=== PATIENT | female | born 1945 | race Caucasian/White ===

== ENCOUNTER 2018-04-28 10:44 | Day surgery (SDC) | payer MEDICARE, OTHER, SELFPAY ==
[2018-04-07 11:43] VITALS: BMI 29.7
[2018-04-28] VITALS (12 sets, daily range): BP systolic 93–152; BP diastolic 42–90; PULSE 58–78; RESP 15–20; TEMP 35.9–36.7; O2SAT 92–99; BMI 29.1
[2018-04-28] MEDS: LACTATED RINGERS 1,000 ML 100 ML IV (11:23)
--- NOTE | 2018-04-28 12:46 | PM.PREOP ---
Pre-operative Note Interval Note Pre-op Check: Yes History & Physical Reviewed by Physician and Yes Exam Performed Changes: No H&P completed within 30 days and has changed as indicated here:: See outpatient note from 04/23/2018
[2018-04-28] MEDS: LACTATED RINGERS 1,000 ML 42 ML IV (12:58)
[2018-04-28] MEDS: CEFAZOLIN 2 GM/100 ML FROZ.PIGGY IV (13:10)
--- NOTE | 2018-04-28 13:41 | SUR.OPER ---
Lithotomy on padded OR bed, head on pillow, arms secured on padded arm boards at <90 degrees abduction. Legs secured in padded yellow fins stirrups.
[2018-04-28] MEDS: BUPIVACAINE 0.25% W/ EPI VIAL 50 ML INJ (13:54)
--- NOTE | 2018-04-28 14:30 | P.OP_ITS ---
Operative Date/Time/Diagnoses Date of procedure: 04/28/18 Time of procedure: 14:29 Pre-op diagnosis: Complete uterovaginal prolapse Post-op diagnosis: same Procedure & Clinicians Procedure: Lefort colpocleisis perineoplasty Same procedure as scheduled: Yes Indications: Complete uterovaginal prolapse Surgeon: Mikki Wolf Click Yes if Unassisted: Yes Anesthesia Type: General Operative Notes Findings: Complete uterovaginal prolapse Closure Type: primary Specimen(s): none sent Estimated Blood Loss (mL): 50 Procedure in detail: - Patient was brought to the operating room where she was in a supine position in [facility] and underwent a light general anesthetic. She was prepped and draped in the usual sterile fashion. Her bladder was drained. Antibiotics were in prior to beginning of the case. Warming was in place. Pulsatile stockings were in place. Area on anterior and posterior wall of the prolapse were marked with a marking pen and injected with 0.25% Marcaine with epinephrine. The skin was incised with a scalpel and undermined with and removed removed with Metzenbaum scissors. 2-0 Vicryl suture was used in an interrupted fashion to close anterior to posterior on the sides creating a tunnel from the cervix to the external area. 0 Vicryl suture interrupted was placed from the anterior cervical fascia to the posterior cervical fascia to invert the cervix. The vaginal incision was closed from anterior to posterior fully inverting the cervix. An area of the posterior fourchette was removed with a scalpel. Plication sutures were made with 0 Vicryl suture to decrease the vaginal opening. The skin was closed with 2 O Vicryl. Counts of instruments and sponges were correct. Patient went to recovery room in good condition. Complications: none Condition: stable Disposition: same day surgery
[2018-04-28] MEDS: IBUPROFEN 400 MG TABLET PO (15:17)
--- NOTE | 2018-04-28 15:28 | SUR.PHASEII ---
report given to Liliam Garcia RN. pt's pad changed and new one placed.
[2018-04-28] MEDS: ONDANSETRON 4 MG/2 ML INJ IV (16:05)
--- NOTE | 2018-04-28 17:25 | SUR.PHASEII ---
late entry: pt nauseated, after walking to the br to void, became pale and light headed, vss, iv fluids restarted. small amount of bleeding on pad. nausea subsided, up to br again nauseated again, ondansetron given. pt eventually drank some tea and felt better, pallor resolved alongpt left unit in stable condition. with nausea.
== END 2018-04-28 17:00 | disposition home or self-care (01) ==
PROVIDERS: PCP Family Medicine; Visit Provider Specialist
PROC: (CPT 57120; principal; 2018-04-28 11:45)
DX: N81.3 Complete uterovaginal prolapse (principal); E11.9 Type 2 diabetes mellitus without complications; I47.1 Supraventricular tachycardia; E03.9 Hypothyroidism, unspecified; K21.9 Gastro-esophageal reflux disease without esophagitis; Z79.84 Long term (current) use of oral hypoglycemic drugs; Z79.82 Long term (current) use of aspirin
CPT/HCPCS: 57120; J0690; J2405; J2704; J3010

== ENCOUNTER 2018-06-30 19:29 | Emergency (ER) | payer MEDICARE, OTHER, SELFPAY ==
[2018-06-30 19:39] VITALS: BP 121/65; PULSE 135; RESP 13; TEMP 36.9; O2SAT 99; BMI 29.0
--- NOTE | 2018-06-30 19:41 | ED.ARRPALP ---
HPI - Arrhythmia/Palpitations General Chief Complaint: Arrhythmia/Palpitations Stated Complaint: states rapid heart rate patient states SVT Time Seen by Provider: 06/30/18 19:41 Source: patient and family Mode of arrival: ambulatory Limitations: no limitations History of Present Illness HPI narrative: 72-year-old nonsmoking female presents with her and a chief complaint of palpitations and fatigue over the course of the day. She has a history of SVT states this feels quite similar. She is followed by Cardiology at [facility] and has a prescription for metoprolol which she has taken 3 times today. She denies any chest pain but is fatigued and mildly short of breath. She denies any recent illness involving fever or chills. She has been under increased stress at home due to preparations for Thanksgiving but denies any lack of sleep, increased alcohol, nicotine or caffeine. Patient is hypothyroid but denies any change in her dosing regimen. Her symptoms have been persisting over the course of the day MD complaint: rapid heart beat and heart racing Onset (ago): hour(s) Duration: constant Severity: moderate Context: occurred during rest Arrhythmia history: SVT Associated symptoms: shortness of breath Related Data Home Medications Medication Instructions Recorded Confirmed metformin [Glucophage XR] 500 mg PO BID #0 04/18/13 05/12/18 aspirin 81 mg tablet,delayed 81 mg PO DAILY 03/17/18 05/12/18 release meclizine 25 mg tablet 25 mg PO DAILY PRN 03/17/18 05/12/18 metoprolol tartrate 25 mg tablet 25 mg PO BID 03/17/18 05/12/18 omeprazole 40 mg capsule,delayed 40 mg PO DAILY 03/17/18 05/12/18 release phytonadione (vitamin K1) 100 mcg 100 mcg PO DAILY 03/17/18 05/12/18 tablet levothyroxine 25 mcg tablet 50 mcg PO #0 tab 04/23/18 05/12/18 Allergies Allergy/AdvReac Type Severity Reaction Status Date / Time sodium Allergy Verified 06/30/18 19:39 Review of Systems Review of Systems All systems reviewed & are unremarkable except as noted in HPI and below Constitutional Denies chills, Denies fever(s), Denies lethargy and Denies weakness Eyes Denies change in vision, Denies eye discharge, Denies irritation and Denies loss of vision ENT Ears, Nose, Mouth, and Throat: Denies change in voice, Denies neck pain and Denies sore throat Cardiovascular Denies chest pain, Reports irregular heart rhythm, Reports lightheadedness, Reports palpitations, Reports dyspnea, Reports dyspnea on exertion and Denies orthopnea Respiratory Denies cough, Reports dyspnea, Reports dyspnea on exertion and Denies wheezing Gastrointestinal Gastrointestinal: Denies abdominal pain, Denies change in bowel habits, Denies diarrhea, Denies nausea and Denies vomiting Genitourinary Denies hematuria, Denies flank pain, Denies urinary incontinence and Denies urinary urgency Musculoskeletal Denies neck pain Integumentary/Breasts Denies pruritus, Denies erythema, Denies rash and Denies wounds Neurologic Denies confusion, Denies loss of vision and Denies weakness Psychiatric Denies anxiety, Denies confusion, Denies depression, Denies homicidal ideation and Denies suicidal ideation Endocrine Reports palpitations Hematologic/Lymphatic Denies easy bruising Allergic/Immunologic Denies wheezing PFSH Medical History Complete uterovaginal prolapse (Acute) GERD (gastroesophageal reflux disease) (Acute) History of compression fracture of spine (Acute) History of ectopic (Acute) Menieres disease (Acute) Osteopenia (Acute) Postmenopausal (Acute) Diabetes (Chronic) Hypothyroidism (acquired) (Chronic) Surgical History History of appendectomy (Acute) History of carpal tunnel repair (Acute) History of kyphoplasty (Acute) History of surgery (Acute) Social History household members: spouse Smoking Status: Never smoker Exam Initial Vital Signs Initial Vital Signs: Vital Signs Temperature 98.4 F 06/30/18 19:39 Pulse Rate 135 H 06/30/18 19:39 Respiratory Rate 13 06/30/18 19:39 Blood Pressure 121/65 06/30/18 19:39 Pulse Oximetry 99 06/30/18 19:39 Procedures [facility] Procedure Name of Procedure: Modified Valsalva Technique/Description of procedure performed: Patient blows on 10mL syringe with sufficient force to move plunger (approx. 40mmHg) x 15 seconds and then lowered into supine position with immediate passive leg raise for another 15 seconds Patient tolerated procedure: Well Complications: none Additional Comments: unsccessful Course Orders Ordered: ED Orders 06/30/18 19:30 Arterial Blood Gas Stat 06/30/18 19:40 Basic Metabolic Panel Stat Complete Blood Count AUTO DIFF Stat Magnesium Stat Thyroid Stimulating Hormone Stat Troponin & CK Cardiac Panel Stat 06/30/18 19:45 XR chest 1V Stat Sodium Chloride (Normal Saline 0.9%) 1,000 mls @ 150 mls/hr IV CONT JASON Last Admin: 06/30/18 20:12 Dose: 150 mls/hr Discontinued Medications Diltiazem HCl (Cardizem) 10 mg IV NOW ONE Stop: 06/30/18 20:08 Last Admin: 06/30/18 20:12 Dose: 10 mg Reevaluation(s) Reevaluation #1: Patient did not have successful termination of SVT after use of modified Valsalva maneuver. Cardizem 10 mg IV push was ordered but patient converted after 7mg into NSR in 60s. patient completely asymptomatic for the duration of her visit afterwards Vital Signs - 8 hr 06/30/18 19:39 06/30/18 20:12 06/30/18 20:22 Temperature 98.4 F Pulse Rate 135 H 133 H 63 Respiratory Rate 13 15 Blood Pressure 121/65 117/89 Blood Pressure [Left Arm] 104/50 L Pulse Oximetry 99 96 06/30/18 20:35 Temperature Pulse Rate 68 Respiratory Rate 16 Blood Pressure Blood Pressure [Left Arm] 129/61 Pulse Oximetry 97 MDM - Arrhythmia/Palpitations Lab Data Result diagrams: 06/30/18 19:40 06/30/18 19:40 Lab Results 06/30/18 06/30/18 06/30/18 Range/Units 19:30 19:40 19:40 WBC 8.7 (4.5-11.0) X10^3/uL RBC 5.30 H (4.0-5.2) X10^6/uL Hgb 15.1 (12.0-16.0) g/dL Hct 45.9 (36-46) % MCV 86.6 (80-100) fL MCH 28.4 (26-34) PG MCHC 32.8 (30-36) % RDW 14.2 (11.6-14.8) % Plt Count 386 (150-400) X10^3/uL Neut % (Auto) 56.4 (50-75) % Lymph % (Auto) 32.5 (25-40) % [place] % (Auto) 8.4 (3-14) % Eos % (Auto) 2.4 (2-4) % Baso % (Auto) 0.3 (0-2) % Neut # (Auto) 4900 (4626-7500) /uL ABG pH (7.35-7.45) ABG pCO2 (35-45) mmHg ABG pO2 (80-105) mmHg ABG HCO3 (23-27) mmol/L ABG Total CO2 (23-27) mmol/L ABG O2 Saturation (95-100) % ABG Base Excess (-2-3) mmol/L FiO2 Sodium 141 (137-145) mmol/L Potassium 3.8 (3.4-5.1) mmol/L Chloride 99 (98-107) mmol/L Carbon Dioxide 27 (22-32) mmol/L BUN 24 H (7-17) mg/dL Creatinine 0.90 (0.52-1.04) mg/dL Estimated GFR > 60.0 (>60) mL/min BUN/Creatinine Ratio 26.7 H (6-22) Glucose 189 H (80-110) mg/dL Calcium 10.0 (8.4-10.2) mg/dL Magnesium 1.9 (1.6-2.3) mg/dL Total Creatine Kinase 45 (30-135) U/L CK-MB (CK-2) TNP CK-MB (CK-2) Rel Index TNP Troponin I < 0.012 (0.01-0.034) ng/mL Discharge Plan Departure Patient Disposition: Home Clinical Impression: Supraventricular tachycardia Discharge Date/Time: 06/30/18 20:44 Instructions: Paroxysmal Supraventricular Tachycardia Activity Restrictions/Additional Instructions: *You have been diagnosed with [ acute SVT versus other nonspecific sinus tachycardia ] *What to do: *Take medications as directed *Take steps to avoid stress as it likely played a role in tonight's visit *Follow up with your primary care provider in 2-3 days, call for an appointment. Let them know you were seen in the Emergency Department and that we ask that you be seen in follow up *Return to ER if you should have any new, worsening or concerning symptoms Prescriptions: No Action metformin [Glucophage XR] 500 MG tablet extended release 24 hr 500 mg PO BID Qty: 0 RF: 0 levothyroxine [Synthroid] 25 mcg tablet 50 mcg PO Qty: 0 RF: 0 metoprolol tartrate 25 mg tablet 25 mg PO BID RF: 0 omeprazole 40 mg capsule,delayed release(DR/EC) 40 mg PO DAILY RF: 0 meclizine 25 mg tablet 25 mg PO DAILY PRN (Reason: Unknown) RF: 0 aspirin [Aspir-81] 81 mg tablet,delayed release (DR/EC) 81 mg PO DAILY RF: 0 phytonadione (vitamin K1) 100 mcg tablet 100 mcg PO DAILY RF: 0 Referrals: Arun Tavares MD [Primary Care Provider] -
--- NOTE | 2018-06-30 19:45 | DI.RAD.S_ITS ---
PROCEDURE: XR CHEST 1V INDICATIONS: palpitations, arrhythmia TECHNIQUE: One view of the chest was acquired. COMPARISON: [facility], , CHEST 1 VIEW, 06/11/2014, 9:08. FINDINGS: Surgical changes and devices: Bone cement injection at multiple levels in the thoracolumbar spine. Lungs and pleura: No pleural effusions or pneumothorax. Lungs are clear. Mediastinum: Mediastinal contours appear normal. Heart size is normal. Bones and chest wall: No suspicious bony lesions. Overlying soft tissues appear unremarkable. IMPRESSION: No acute process. Dictated by: Alf Garcia M.D. on 06/30/2018 at 20:20 Approved by: Alf Garcia M.D. on 06/30/2018 at 20:20
[2018-06-30 19:59] LABS: Add Manual Diff / Slide Review NO; Basophils Percent Auto 0.3 % (0-2); Eosinophils Percent Auto 2.4 % (2-4); Hematocrit 45.9 % (36-46); Hemoglobin 15.1 g/dL (12.0-16.0); Lymphocytes Percent Auto 32.5 % (25-40); Mean Corpuscular HGB Conc 32.8 % (30-36); Mean Corpuscular Hemoglobin 28.4 PG (26-34); Mean Corpuscular Volume 86.6 fL (80-100); Monocytes Percent Auto 8.4 % (3-14); Neutrophils Absolute Auto 4900 /uL (3000-5900); Neutrophils Percent Auto 56.4 % (50-75); Platelet Count 386 X10^3/uL (150-400); Red Cell Distribution Width 14.2 % (11.6-14.8); White Blood Cell Count 8.7 X10^3/uL (4.5-11.0)
[2018-06-30 20:07] LABS: BUN Creatinine Ratio 26.7 (6-22); Blood Urea Nitrogen 24 mg/dL (7-17); Carbon Dioxide 27 mmol/L (22-32); Chloride 99 mmol/L (98-107); Creatine Kinase 45 U/L (30-135); Estimated Glomerular Filt Rate > 60.0 mL/min (>60); Glucose 189 mg/dL (80-110); HEMOLYSIS < 15 (0-50); Magnesium 1.9 mg/dL (1.6-2.3); Potassium 3.8 mmol/L (3.4-5.1); Sodium 141 mmol/L (137-145)
[2018-06-30 20:12] VITALS: BP 117/89; PULSE 133
[2018-06-30] MEDS: SODIUM CHLORIDE 0.9% 1,000 ML 150 ML IV (20:12)
[2018-06-30] MEDS: dilTIAZem 5 MG/ML SDV 10 MG IV (20:12)
[2018-06-30 20:19] LABS: Troponin I < 0.012 ng/mL (0.01-0.034)
[2018-06-30 20:22] VITALS: BP 104/50; PULSE 63; RESP 15; O2SAT 96
[2018-06-30 20:35] VITALS: BP 129/61; PULSE 68; RESP 16; O2SAT 97
[2018-06-30 20:44] LABS: Thyroid Stimulating Hormone 1.86 uIU/mL (0.47-4.68)
== END 2018-06-30 20:44 | disposition home or self-care (01) ==
PROVIDERS: Emergency Provider Emergency Medicine; PCP Family Medicine
DX: I47.1 Supraventricular tachycardia (principal)
CPT/HCPCS: 36591; 71045; 80048; 82550; 82805; 83735; 84443; 84484; 85025; 93005; 93041; 96361; 96374; 99283; 99285

== ENCOUNTER 2018-10-21 19:55 | Emergency (ER) | payer MEDICARE, OTHER, SELFPAY ==
[2018-10-21 20:09] VITALS: BP 148/101; PULSE 130; RESP 19; TEMP 37; O2SAT 100; BMI 28.6
--- NOTE | 2018-10-21 20:11 | DI.RAD.S_ITS ---
PROCEDURE: XR CHEST 1V INDICATIONS: chest pain TECHNIQUE: One view of the chest was acquired. COMPARISON: [facility], CR, XR CHEST 1V, 06/30/2018, 19:57. FINDINGS: Surgical changes and devices: Prior T12 vertebroplasty. Lungs and pleura: Lungs are clear. No pleural effusions or pneumothorax. Mediastinum: Mediastinal contours appear normal. Heart size is mildly enlarged. Bones and chest wall: No suspicious bony lesions. Overlying soft tissues appear unremarkable. IMPRESSION: No acute cardiopulmonary disease process. Dictated by: Dayami Villar MD, PhD on 10/21/2018 at 20:43 Approved by: Dayami Villar MD, PhD on 10/21/2018 at 20:45
[2018-10-21 20:17] LABS: Add Manual Diff / Slide Review NO; Basophils Absolute Auto 100 /uL (0-100); Eosinophils Absolute Auto 200 /uL (0-450); Eosinophils Percent Auto 2.8 % (2-4); Hematocrit 45.7 % (36-46); Hemoglobin 14.9 g/dL (12.0-16.0); Lymphocytes Absolute Auto 3300 /uL (1100-4500); Lymphocytes Percent Auto 40.4 % (25-40); Mean Corpuscular HGB Conc 32.5 % (30-36); Mean Corpuscular Hemoglobin 27.9 PG (26-34); Mean Corpuscular Volume 85.7 fL (80-100); Monocytes Absolute Auto 600 /uL (0-900); Monocytes Percent Auto 7.1 % (3-14); Neutrophils Absolute Auto 4000 /uL (1500-7000); Neutrophils Percent Auto 48.7 % (50-75); Platelet Count 372 X10^3/uL (150-400); Red Blood Cell Count 5.34 X10^6/uL (4.0-5.2); Red Cell Distribution Width 14.8 % (11.6-14.8); White Blood Cell Count 8.2 X10^3/uL (4.5-11.0)
[2018-10-21 20:25] LABS: Prothrombin Time 11.7 SECONDS (10.1-12.7)
[2018-10-21 20:27] LABS: PTT Partial Thromboplastin Tim 25 SECONDS (26.4-36.2)
[2018-10-21 20:30] VITALS: BP 132/75; PULSE 132; RESP 19; O2SAT 94
[2018-10-21 20:30] LABS: Alanine Aminotransferase 30 IU/L (9-52); Albumin 4.7 g/dL (3.5-5.0); Albumin Globulin Ratio 1.1 (1.0-2.8); Alkaline Phosphatase 110 U/L (38-126); Aspartate Aminotransferase 36 IU/L (14-36); BUN Creatinine Ratio 26.7 (6-22); Bilirubin Total 0.4 mg/dL (0.2-1.3); Blood Urea Nitrogen 24 mg/dL (7-17); Calcium 8.9 mg/dL (8.4-10.2); Carbon Dioxide 27 mmol/L (22-32); Chloride 96 mmol/L (98-107); Creatine Kinase 48 U/L (30-135); Estimated Glomerular Filt Rate > 60.0 mL/min (>60); Globulin 4.2 g/dL (1.7-4.1); Glucose 197 mg/dL (80-110); HEMOLYSIS < 15 (0-50); Lipase 319 U/L (23-300); Potassium 3.9 mmol/L (3.4-5.1); Sodium 141 mmol/L (137-145); Total Protein 8.9 g/dL (6.3-8.2)
--- NOTE | 2018-10-21 20:31 | ED.ARRPALP ---
HPI - Arrhythmia/Palpitations General Chief Complaint: Arrhythmia/Palpitations Stated Complaint: RAPID HEARTRATE Time Seen by Provider: 10/21/18 20:03 Source: patient and family Mode of arrival: ambulatory Limitations: no limitations History of Present Illness HPI narrative: Patient complains of rapid heart rate that started around noon today continued since. Patient states her heart rate has remained in the 120s to 130s all day long, and has not responded to a total of 62-,1/2 mg of metoprolol taken over the course of the day. Patient states that she has a longstanding history of SVT, and that this feels same, although at other times, her heart rate has quite a bit faster than is today. Patient states she has otherwise been feeling well and has not had a recent fever, vomiting, diarrhea, or other cause of volume loss. The patient states that she has not had any medication changes otherwise. She has a history of well-controlled diabetes, and also takes Synthroid. Patient denies chest pain or shortness of breath. No dizziness or lightheadedness. No fainting. Patient states she has no other symptoms at this time. She is mainly concerned that she does not want to go to bed without her heart rate coming down. Related Data Home Medications Medication Instructions Recorded Confirmed metformin [Glucophage XR] 500 mg PO BID #0 04/18/13 05/12/18 aspirin 81 mg tablet,delayed 81 mg PO DAILY 03/17/18 05/12/18 release meclizine 25 mg tablet 25 mg PO DAILY PRN 03/17/18 05/12/18 metoprolol tartrate 25 mg tablet 25 mg PO BID 03/17/18 05/12/18 omeprazole 40 mg capsule,delayed 40 mg PO DAILY 03/17/18 05/12/18 release phytonadione (vitamin K1) 100 mcg 100 mcg PO DAILY 03/17/18 05/12/18 tablet levothyroxine 25 mcg tablet 50 mcg PO #0 tab 04/23/18 05/12/18 cholecalciferol (vitamin D3) 1,000 1,000 unit PO DAILY 08/04/18 08/04/18 unit capsule Previous Rx's Medication Instructions Recorded diltiazem HCl [Cardizem] 30 mg PO DAILY #7 tab 10/21/18 Allergies Allergy/AdvReac Type Severity Reaction Status Date / Time sodium Allergy Verified 10/21/18 20:08 Review of Systems Constitutional Denies chills, Denies fever(s), Denies lethargy and Denies weakness Eyes Denies change in vision, Denies eye discharge, Denies irritation and Denies loss of vision ENT Ears, Nose, Mouth, and Throat: Denies change in voice, Denies neck pain and Denies sore throat Cardiovascular Denies chest pain, Denies irregular heart rhythm, Denies lightheadedness, Reports palpitations, Denies dyspnea, Denies dyspnea on exertion and Denies orthopnea Respiratory Denies cough, Denies dyspnea, Denies dyspnea on exertion and Denies wheezing Gastrointestinal Gastrointestinal: Denies abdominal pain, Denies change in bowel habits, Denies diarrhea, Denies nausea and Denies vomiting Genitourinary Denies hematuria, Denies flank pain, Denies urinary incontinence and Denies urinary urgency Musculoskeletal Denies neck pain Integumentary/Breasts Denies pruritus, Denies erythema, Denies rash and Denies wounds Neurologic Denies confusion, Denies loss of vision and Denies weakness Psychiatric Denies anxiety, Denies confusion, Denies depression, Denies homicidal ideation and Denies suicidal ideation Endocrine Reports palpitations Hematologic/Lymphatic Denies easy bruising Allergic/Immunologic Denies wheezing FORMERLY [facility], 1928–1983 Medical History Complete uterovaginal prolapse (Acute) GERD (gastroesophageal reflux disease) (Acute) History of compression fracture of spine (Acute) History of ectopic (Acute) Menieres disease (Acute) Osteopenia (Acute) Postmenopausal (Acute) Diabetes (Chronic) Hypothyroidism (acquired) (Chronic) Surgical History History of appendectomy (Acute) History of carpal tunnel repair (Acute) History of kyphoplasty (Acute) History of surgery (Acute) Social History household members: spouse Smoking Status: Never smoker Social History household members: spouse Smoking Status: Never smoker Exam Initial Vital Signs Initial Vital Signs: Vital Signs Temperature 98.6 F 10/21/18 20:09 Pulse Rate 130 H 10/21/18 20:09 Respiratory Rate 19 10/21/18 20:09 Blood Pressure 148/101 H 10/21/18 20:09 Pulse Oximetry 100 10/21/18 20:09 Const General: cooperative, well developed and No acute distress Nutritional Appearance: well nourished Orientation: alert, awake, oriented x3 and not confused Other: The patient is in no distress and is well appearing. [facility] Head: normocephalic and atraumatic Ears: external ears normal Nose: external nose normal and No nasal discharge Face and sinus: face symmetric and No dry mucous membranes Mouth: oral mucosae normal and moist mucous membranes Teeth and gingiva: dentition normal Eyes General: appearance normal, both eyes and all related structures Eyelids: eyelids normal Conjunctivae: conjunctivae normal Sclera: sclerae normal Pupils: PERRL EOM: EOM intact bilaterally Neck Neck: normal visual inspection, trachea midline, No lymphadenopathy, No midline deformity and No JVD Lymphatic: No lymphedema Chest Chest: normal inspection of the chest Resp Effort & Inspection: normal respiratory effort, able to speak in complete sentences, no respiratory distress and no use of accessory muscles Auscultation: clear to auscultation bilaterally, no rales, no rhonchi and no wheezes Cardio Rate: tachycardic (Patient has a tachycardic yet regular rhythm at around 130 beats per min.) Heart Sounds: no click, no gallops, no murmurs and no rubs Pulses: normal peripheral pulses GI Inspection: non-distended Palpation: soft, no hepatosplenomegaly, No guarding, No pulsatile mass and No tender Auscultation: normal bowel sounds Back/Spine/Pelvis Back: No CVA tenderness Cervical Spine: cervical ROM normal and No pain with cervical ROM Thoracic/Lumbar Spine: thoracic and lumbar spine normal to inspection Skin General: no rashes or lesions noted, No jaundice and No petechiae Neuro General: alert, oriented x3, gait normal and no focal motor deficits Speech: speech normal Extrem General: full ROM, no clubbing, cyanosis or edema, no pedal edema and no calf tenderness Psych Appearance: well kempt Mental Status: mental status grossly normal Attitude: cooperative Thought Content: normal and suicidality Judgment: judgment good Course Course Narrative: I did review the patient's records, after looking at her EKG which showed sinus tachycardia, and found that the last time the patient came in for this, her heart rate was roughly the same, and she responded well to a low dose of Cardizem. I did go ahead and give the patient a low dose of Cardizem IV in the emergency department today. Labs were also sent, including CMP, CBC, and cardiac panel. Shortly after the Cardizem dose, patient's heart rate slowed to a normal sinus rhythm in the 60s. she felt good, was otherwise stable, and labs were unremarkable. I felt she was stable for discharge home. We discussed home management of her condition, as well as the usual indications for return. Orders Ordered: Discontinued Medications Diltiazem HCl (Cardizem) 10 mg IV NOW ONE Stop: 10/21/18 20:32 Last Admin: 10/21/18 20:36 Dose: 10 mg Sodium Chloride (Normal Saline 0.9%) 1,000 mls @ 1,000 mls/hr IV BOLUS ONE Stop: 10/21/18 21:28 Last Infusion: 10/21/18 21:00 Dose: 0 mls/hr Admin: 10/21/18 20:36 Dose: 1,000 mls/hr Vital Signs - 8 hr 10/21/18 20:09 Temperature 98.6 F Pulse Rate 130 H Respiratory Rate 19 Blood Pressure 148/101 H Pulse Oximetry 100 MDM - Arrhythmia/Palpitations Medical Records Attestation: I reviewed the patient's medical records. Lab Data Attestation: I reviewed the patient's lab results. Result diagrams: 10/21/18 20:04 10/21/18 20:04 Lab Results 10/21/18 10/21/18 10/21/18 Range/Units 20:04 20:04 20:04 WBC 8.2 (4.5-11.0) X10^3/uL RBC 5.34 H (4.0-5.2) X10^6/uL Hgb 14.9 (12.0-16.0) g/dL Hct 45.7 (36-46) % MCV 85.7 (80-100) fL MCH 27.9 (26-34) PG MCHC 32.5 (30-36) % RDW 14.8 (11.6-14.8) % Plt Count 372 (150-400) X10^3/uL Neut % (Auto) 48.7 L (50-75) % Lymph % (Auto) 40.4 H (25-40) % [place] % (Auto) 7.1 (3-14) % Eos % (Auto) 2.8 (2-4) % Baso % (Auto) 1.0 (0-2) % Neut # (Auto) 4000 (9712-3261) /uL Lymph # (Auto) 3300 (6375-4395) /uL [place] # (Auto) 600 (0-900) /uL Eos # (Auto) 200 (0-450) /uL Baso # (Auto) 100 (0-100) /uL PT 11.7 (10.1-12.7) SECONDS INR 1.0 (0.9-1.3) APTT 25 L (26.4-36.2) SECONDS Sodium 141 (137-145) mmol/L Potassium 3.9 (3.4-5.1) mmol/L Chloride 96 L (98-107) mmol/L Carbon Dioxide 27 (22-32) mmol/L BUN 24 H (7-17) mg/dL Creatinine 0.90 (0.52-1.04) mg/dL Estimated GFR > 60.0 (>60) mL/min BUN/Creatinine Ratio 26.7 H (6-22) Glucose 197 H (80-110) mg/dL Calcium 8.9 (8.4-10.2) mg/dL Total Bilirubin 0.4 (0.2-1.3) mg/dL AST 36 (14-36) IU/L ALT 30 (9-52) IU/L Alkaline Phosphatase 110 (38-126) U/L Total Creatine Kinase 48 (30-135) U/L CK-MB (CK-2) TNP CK-MB (CK-2) Rel Index TNP Troponin I < 0.012 (0.01-0.034) ng/mL Total Protein 8.9 H (6.3-8.2) g/dL Albumin 4.7 (3.5-5.0) g/dL Globulin 4.2 H (1.7-4.1) g/dL Albumin/Globulin Ratio 1.1 (1.0-2.8) Lipase 319 H (23-300) U/L ECG Data Attestation: I personally reviewed and interpreted this ECG as follows: ( See below) Interpretation: 12 lead EKG performed October 21, 2018 at 8:06 p.m.: Regular ventricular rhythm with a rate of 126 beats per minute OH interval 192 milliseconds QRS duration 120 milliseconds QTC interval [address] T wave changes no ectopy left axis deviation and summary: Sinus tachycardia; moderate intraventricular conduction delay; marked left axis deviation; minimal ST depression; abnormal EKG as interpreted by ED MD. Discharge Plan Departure Patient Disposition: Home Clinical Impression: Sinus tachycardia Discharge Date/Time: 10/21/18 21:31 Interventions: ED Discharge Assessment Last Done: 10/21/18 21:30 Instructions: DI for Arrhythmias Activity Restrictions/Additional Instructions: Your labs look good. Your heart rate has responded well to diltiazem, a calcium channel santana, tonight. You will be given a small prescription for this, to take only if your heart rate is high and fails to respond to metoprolol, but should talk to your doctor about whether this is a good long-term plan to have as a backup to your metoprolol, should your metoprolol fail to yield results as it did tonight. Prescriptions: New diltiazem HCl [Cardizem] 30 mg tablet 30 mg PO DAILY Qty: 7 RF: 0 No Action metformin [Glucophage XR] 500 MG tablet extended release 24 hr 500 mg PO BID Qty: 0 RF: 0 levothyroxine [Synthroid] 25 mcg tablet 50 mcg PO Qty: 0 RF: 0 metoprolol tartrate 25 mg tablet 25 mg PO BID RF: 0 omeprazole 40 mg capsule,delayed release(DR/EC) 40 mg PO DAILY RF: 0 meclizine 25 mg tablet 25 mg PO DAILY PRN (Reason: Unknown) RF: 0 aspirin [Aspir-81] 81 mg tablet,delayed release (DR/EC) 81 mg PO DAILY RF: 0 phytonadione (vitamin K1) 100 mcg tablet 100 mcg PO DAILY RF: 0 cholecalciferol (vitamin D3) 1,000 unit capsule 1,000 unit PO DAILY RF: 0 Referrals: Arun Tavares MD [Primary Care Provider] -
[2018-10-21] MEDS: SODIUM CHLORIDE 0.9% 1,000 ML 1000 ML IV (20:36)
[2018-10-21] MEDS: dilTIAZem 5 MG/ML SDV 10 MG IV (20:36)
[2018-10-21 20:42] LABS: Troponin I < 0.012 ng/mL (0.01-0.034)
[2018-10-21 20:45] VITALS: BP 112/67; PULSE 59; RESP 20; O2SAT 95
== END 2018-10-21 21:31 | disposition home or self-care (01) ==
PROVIDERS: Emergency Provider Emergency Medicine; Family Provider Family Medicine; PCP Family Medicine
DX: R00.0 Tachycardia, unspecified (principal)
CPT/HCPCS: 36591; 71045; 80053; 82550; 83690; 84484; 85025; 85610; 85730; 93005; 96374; 99283; 99285

== ENCOUNTER → 2018-11-03 13:35 | Outpatient (CLI) | payer MEDICARE, OTHER, SELFPAY | PROVIDERS: Family Provider Family Medicine; PCP Family Medicine; Visit Provider Family Medicine | DX: M81.0 Age-related osteoporosis without current pathological fracture (principal); Z78.0 Asymptomatic menopausal state; E11.9 Type 2 diabetes mellitus without complications; E07.9 Disorder of thyroid, unspecified | CPT/HCPCS: 77080; 77081 ==

== ENCOUNTER → 2018-11-23 10:56 | Outpatient (CLI) | payer MEDICARE, OTHER, SELFPAY ==
--- NOTE | 2018-11-23 | DI.RAD.S_ITS ---
PROCEDURE: XR HIP W PEL IF DONE LT 2V INDICATIONS: LEFT HIP AND LEFT KNEE PAIN TECHNIQUE: AP pelvis with lateral view(s) of the left hip. COMPARISON: None. FINDINGS: Bones: No fractures or dislocations. Pelvic ring appears intact. No suspicious bony lesions. Soft tissues: The visualized bowel gas pattern is normal. No suspicious soft tissue calcifications. IMPRESSION: Minimal hip joint osteoarthritis symmetric bilaterally. No trauma. Dictated by: Sanjeev Zamora M.D. on 11/23/2018 at 12:46 Approved by: Sanjeev Zamora M.D. on 11/23/2018 at 12:47
--- NOTE | 2018-11-23 | DI.RAD.S_ITS ---
PROCEDURE: XR KNEE LT 3V INDICATIONS: LEFT HIP AND LEFT KNEE PAIN TECHNIQUE: 3 views of the knee were acquired. COMPARISON: None. FINDINGS: Bones: No fractures or dislocations. No suspicious bony lesions. Soft tissues: No joint effusion. No suspicious soft tissue calcifications. IMPRESSION: No trauma found, minimal medial compartment joint space narrowing suggests mild osteoarthritis in that area. Dictated by: Sanjeev Zamora M.D. on 11/23/2018 at 12:46 Approved by: Sanjeev Zamora M.D. on 11/23/2018 at 12:46
== END ==
PROVIDERS: Family Provider Family Medicine; PCP Family Medicine; Visit Provider Family Medicine
DX: M79.662 Pain in left lower leg (principal); M79.652 Pain in left thigh; M16.0 Bilateral primary osteoarthritis of hip
CPT/HCPCS: 73502; 73562

== ENCOUNTER 2019-02-25 12:43 | Emergency (ER) | payer MEDICARE, OTHER, SELFPAY ==
[2019-02-25 12:50] VITALS: BP 126/79; PULSE 82; RESP 20; TEMP 36.6; O2SAT 96; BMI 26.4
--- NOTE | 2019-02-25 13:29 | ED.NAVMDI ---
HPI - Nausea/Vomiting/Diarrhea <NICOLLE Gudino - Last Filed: 02/25/19 18:27> General Chief complaint: Nausea/Vomiting/Diarrhea Stated complaint: Dizzy, Nauseated Time Seen by Provider: 02/25/19 13:12 Source: patient, family and EMS Mode of arrival: EMS Limitations: no limitations History of Present Illness HPI Narrative: The patient is a 73-year-old female nonsmoker with history of SVT who presents with a chief complaint of dizziness nausea and vomiting. She had an SVT ablation done yesterday. She has a history of Meniere's disease. She states that this feels like a Meniere's flare. She denies any chest pain or shortness of breath. She states that her ablation was done yesterday at [facility] by Dr. Whyte. She reports some nerve damage to her right lower leg, which has been consistent since the ablation. She denies any confusion, focal weakness, chest pain or shortness of breath. She denies any visual abnormalities or slurred speech. She has not taken anything at home for the Meniere's. Related Data Home Medications Medication Instructions Recorded Confirmed aspirin 81 mg tablet,delayed 81 mg PO DAILY 03/17/18 02/25/19 release alexys citrate-mag ox,aspart-D3 1 wafer PO DAILY 02/25/19 02/25/19 calcitonin (salmon) 1 spray INTRANASAL (ALT) DAILY 02/25/19 02/25/19 ibuprofen 400 mg PO BID PRN 02/25/19 02/25/19 levothyroxine [Tirosint] 50 mcg PO DAILY 02/25/19 02/25/19 metformin 500 mg PO TID 02/25/19 02/25/19 Allergies Allergy/AdvReac Type Severity Reaction Status Date / Time diltiazem Allergy Severe Rash Verified 02/25/19 13:00 sodium Allergy Verified 02/25/19 12:59 Review of Systems <NICOLLE Gudino - Last Filed: 02/25/19 18:27> Review of Systems GENERAL: Denies chills, fatigue, malaise, fever, sweats. HEENT: Denies sinus pain, ear pain, sore throat, difficulty swallowing, dizziness. RESPIRATORY: Denies dyspnea, cough, wheezing, hemoptysis, sputum. CARDIOVASCULAR: Denies chest pain, palpitations, orthopnea, edema, GASTROINTESTINAL: See HPI : Denies dysuria, frequency, incontinence, hematuria, urinary retention. MUSCULOSKELETAL: denies weakness, joint pain, or bony pain SKIN: Denies rash, skin lesions, or other NEUROLOGIC: Denies weakness, headache, numbness, change in speech, confusion, seizures, incoordination. PSYCHIATRIC: No concerning psychosocial issues. 12 point review of systems is negative except for those stated above PFSH <NICOLLE Gudino - Last Filed: 02/25/19 18:27> Medical History Complete uterovaginal prolapse (Acute) GERD (gastroesophageal reflux disease) (Acute) History of compression fracture of spine (Acute) History of ectopic (Acute) Menieres disease (Acute) Osteopenia (Acute) Postmenopausal (Acute) Diabetes (Chronic) Hypothyroidism (acquired) (Chronic) Surgical History History of appendectomy (Acute) History of carpal tunnel repair (Acute) History of kyphoplasty (Acute) History of surgery (Acute) Social History household members: spouse Smoking Status: Never smoker Social History household members: spouse Smoking Status: Never smoker Exam <NICOLLE Gudino - Last Filed: 02/25/19 18:27> Narrative Exam Narrative: GENERAL: Elderly female lying on stretcher HEAD: Atraumatic. Normocephalic. No temporal or scalp tenderness. EYES: Pupils equal round and reactive. Extraocular motions intact. No scleral icterus. No injection or drainage. ENT: Nose without bleeding, purulent drainage or septal hematoma. Throat without erythema, tonsillar hypertrophy or exudate. Uvula midline. Airway patent. NECK: Trachea midline. No JVD or lymphadenopathy. Supple, nontender, no meningeal signs. CARDIOVASCULAR: Regular rate and rhythm without murmurs, gallops, or rubs. RESPIRATORY: Clear to auscultation. Breath sounds equal bilaterally. No wheezes, rales, or rhonchi. No cough. No increased respiratory effort. No accessory muscle use. GASTROINTESTINAL: Abdomen soft, non-tender, nondistended. No hepato-splenomegaly, or palpable masses. No guarding. Active bowel sounds all 4 quadrants. EXTREMITIES: No clubbing, cyanosis, or edema. No joint tenderness, effusion, or edema noted. BACK: Nontender without deformity or crepitance. No flank tenderness. NEURO: AOx3. No gross cranial nerve deficit. Strength is equal upper and lower extremities bilaterally. SKIN: Bilateral femoral access site soft and without ecchymosis. Initial Vital Signs Initial Vital Signs: Vital Signs Temperature 97.8 F 02/25/19 12:50 Pulse Rate 82 02/25/19 12:50 Respiratory Rate 02/25/19 12:50 Blood Pressure 126/79 02/25/19 12:50 Pulse Oximetry 96 02/25/19 12:50 <Jacquelyn Kwong DO - Last Filed: 02/26/19 06:14> Initial Vital Signs Initial Vital Signs: Vital Signs Temperature 97.8 F 02/25/19 12:50 Pulse Rate 82 02/25/19 12:50 Respiratory Rate 02/25/19 12:50 Blood Pressure 126/79 02/25/19 12:50 Pulse Oximetry 96 02/25/19 12:50 Scores <NICOLLE Gudino - Last Filed: 02/25/19 18:27> NIH Stroke Scale Level of Conciousness: Alert, keenly responsive Ask month/age: Answers both questions correctly. Open/close eyes, close hand: Performs both tasks correctly Best gaze horizontal: Normal Visual jaime: No visual loss Facial palsy: Normal symetrical movement Left arm drift: No drift for full 10 sec Right arm drift: No drift for full 10 sec Left leg drift: No drift for full 10 sec Right leg drift: No drift for full 10 sec Limb ataxia: Absent Sensory on face/arms/legs: Normal, no sensory loss Best language: No aphasia, normal Dysarthria: Normal Extinction or inattention: No abnormality Total NIH Stroke scale score: 0 Course <NICOLLE Gudino - Last Filed: 02/25/19 18:27> Orders Ordered: Discontinued Medications Meclizine HCl (Antivert) 50 mg PO NOW ONE Stop: 02/25/19 15:23 Last Admin: 02/25/19 15:27 Dose: 50 mg Ondansetron HCl (Zofran) 4 mg IV NOW ONE Stop: 02/25/19 14:27 Last Admin: 02/25/19 14:30 Dose: 4 mg Vital Signs - 8 hr 02/25/19 12:50 02/25/19 14:33 02/25/19 15:55 Temperature 97.8 F Pulse Rate 82 85 93 H Pulse Rate [Orthostatic Lying] Pulse Rate [Orthostatic Sitting] Pulse Rate [Orthostatic Standing] Respiratory Rate 20 18 16 Blood Pressure 126/79 Blood Pressure [Orthostatic Lying] Blood Pressure [Orthostatic Sitting] Blood Pressure [Orthostatic Standing] Blood Pressure [Right Arm] 129/84 138/75 Pulse Oximetry 96 95 96 02/25/19 16:16 Temperature Pulse Rate Pulse Rate [Orthostatic Lying] 87 Pulse Rate [Orthostatic Sitting] 97 H Pulse Rate [Orthostatic Standing] 102 H Respiratory Rate Blood Pressure Blood Pressure [Orthostatic Lying] 146/72 H Blood Pressure [Orthostatic Sitting] 159/78 H Blood Pressure [Orthostatic Standing] 137/89 Blood Pressure [Right Arm] Pulse Oximetry <Jacquelyn Kwong DO - Last Filed: 02/26/19 06:14> Orders Ordered: Discontinued Medications Meclizine HCl (Antivert) 50 mg PO NOW ONE Stop: 02/25/19 15:23 Last Admin: 02/25/19 15:27 Dose: 50 mg Ondansetron HCl (Zofran) 4 mg IV NOW ONE Stop: 02/25/19 14:27 Last Admin: 02/25/19 14:30 Dose: 4 mg Vital Signs - 8 hr 02/25/19 12:50 02/25/19 14:33 02/25/19 15:55 Temperature 97.8 F Pulse Rate 82 85 93 H Pulse Rate [Orthostatic Lying] Pulse Rate [Orthostatic Sitting] Pulse Rate [Orthostatic Standing] Respiratory Rate 20 18 16 Blood Pressure 126/79 Blood Pressure [Orthostatic Lying] Blood Pressure [Orthostatic Sitting] Blood Pressure [Orthostatic Standing] Blood Pressure [Right Arm] 129/84 138/75 Pulse Oximetry 96 95 96 02/25/19 16:16 Temperature Pulse Rate Pulse Rate [Orthostatic Lying] 87 Pulse Rate [Orthostatic Sitting] 97 H Pulse Rate [Orthostatic Standing] 102 H Respiratory Rate Blood Pressure Blood Pressure [Orthostatic Lying] 146/72 H Blood Pressure [Orthostatic Sitting] 159/78 H Blood Pressure [Orthostatic Standing] 137/89 Blood Pressure [Right Arm] Pulse Oximetry MDM - Nausea/Vomiting/Diarrhea <MECCA Gudino- - Last Filed: 02/25/19 18:27> Lab Data Result diagrams: 02/25/19 14:54 02/25/19 14:54 Lab Results 02/25/19 02/25/19 02/25/19 Range/Units 14:54 14:54 14:54 WBC 9.6 (4.5-11.0) X10^3/uL RBC 4.85 (4.0-5.2) X10^6/uL Hgb 14.3 (12.0-16.0) g/dL Hct 42.9 (36-46) % MCV 88.5 (80-100) fL MCH 29.5 (26-34) PG MCHC 33.3 (30-36) % RDW 15.6 H (11.6-14.8) % Plt Count 287 (150-400) X10^3/uL Neut % (Auto) 79.5 H (50-75) % Lymph % (Auto) 13.8 L (25-40) % [place] % (Auto) 4.8 (3-14) % Eos % (Auto) 1.0 L (2-4) % Baso % (Auto) 0.9 (0-2) % Neut # (Auto) 7600 H (7789-6908) /uL Lymph # (Auto) 1300 (5182-8366) /uL [place] # (Auto) 500 (0-900) /uL Eos # (Auto) 100 (0-450) /uL Baso # (Auto) 100 (0-100) /uL PT 12.1 (10.1-12.7) SECONDS INR 1.1 (0.9-1.3) APTT 31 D (26.4-36.2) SECONDS Sodium 139 (137-145) mmol/L Potassium 3.7 (3.4-5.1) mmol/L Chloride 101 (98-107) mmol/L Carbon Dioxide 24 (22-32) mmol/L BUN 17 (7-17) mg/dL Creatinine 0.70 (0.52-1.04) mg/dL Estimated GFR > 60.0 (>60) mL/min BUN/Creatinine Ratio 24.3 H (6-22) Glucose 145 H (80-110) mg/dL Calcium 10.1 (8.4-10.2) mg/dL Magnesium 1.6 (1.6-2.3) mg/dL Total Bilirubin 0.6 (0.2-1.3) mg/dL AST 23 (14-36) IU/L ALT 18 (9-52) IU/L Alkaline Phosphatase 85 (38-126) U/L Total Protein 7.9 (6.3-8.2) g/dL Albumin 4.5 (3.5-5.0) g/dL Globulin 3.4 (1.7-4.1) g/dL Albumin/Globulin Ratio 1.3 (1.0-2.8) Point of Care Testing Glucose POC 154 Imaging Data Chest x-ray: Radiologist's impression: Chart Viewer Diagnostics DATE TYPE STATUS AUTHOR Hx 02/25/19 14:40 Tk Barroso 11/23/18 00:00 Sanjeev Zamora 11/23/18 00:00 Sanjeev Zamora 11/03/18 00:00 10/21/18 20:11 Dayami Villar 06/30/18 19:45 Alf Garcia Linda Sue 73, 1945 DEP ER, ED.LOC - Main ED 149.86cm 59.421kg BMI: 26.5kg/m? Nausea/Vomiting/Diarrhea Search Chart No Data to Display Rash ONSET Today 16:16 Soraida Barry 73 F [address] [address] XRay Report Signed Patient: Soraida Barry KelseyR#: [id number] : 5Acct:[id number] Age/Sex: 73 / FDate of Service: 02/25/19 Loc: ED Accession Number: [id number] Procedure: XR chest 1V Ordering Provider: Jacquelyn Lee PROCEDURE: XR CHEST 1V INDICATIONS: dizzy post ablation TECHNIQUE: One view of the chest was acquired. [facility] 20[facility]27. FINDINGS: Surgical changes and devices: Vertebroplasty changes involving multiple levels of the imaged thoracolumbar spine are present. Lungs and pleura: There is slight blunting of the left costophrenic angle. No large areas of consolidation are present. No pneumothorax is evident. Mediastinum: Mediastinal contours appear normal. Heart size is normal. There is aortic atherosclerosis. Bones and chest wall: No suspicious bony lesions. Overlying soft tissues appear unremarkable. IMPRESSION: 1. No acute cardio pulmonary process is evident. 2. Trace effusion versus minimal scarring/atelectasis at the left costophrenic angle. Dictated by: Tk Barroso M.D. on 02/25/2019 at 14:39 Approved by: Tk Barroso M.D. on 02/25/2019 at 14:42 ECG Data Interpretation: Sinus rhythm. Ventricular rate 83. No ST elevation or depression. No ectopy noted. Viewed by Dr Kwong 13:01 [facility] Narrative Medical decision making narrative: The patient is a 73-year-old female presents with chief complaint of dizziness nausea and vomiting after an ablation. Given that she just had ablation, she is at high risk of stroke. She has an NIH of 0. The patient repeatedly declined a head CT during her stay in the ER. She denied any chest pain or shortness of breath, some a clinical suspicion of a cardiac event is low. I spoke with Dr. Dupree regarding obtaining a troponin, as I would expect it to be elevated given her recent ablation. He stated to not do a less there is high clinical suspicion of a cardiac event. The patient also repeatedly declined medications for nausea and dizziness. I discussed at length the risk factors of missing a stroke on head CT, such as . Patient stated understanding and repeatedly declined the CT scan. Orthostatics were negative and she was able to ambulate well. I discussed at length coming back to the ER for any acute concerns such as chest pain or shortness of breath. Discussed follow-up with PCP. Patient has no questions or concerns upon discharge. <Jacquelyn Kwong, DO - Last Filed: 02/26/19 06:14> Lab Data Lab Results 02/25/19 02/25/19 02/25/19 Range/Units 14:54 14:54 14:54 WBC 9.6 (4.5-11.0) X10^3/uL RBC 4.85 (4.0-5.2) X10^6/uL Hgb 14.3 (12.0-16.0) g/dL Hct 42.9 (36-46) % MCV 88.5 (80-100) fL MCH 29.5 (26-34) PG MCHC 33.3 (30-36) % RDW 15.6 H (11.6-14.8) % Plt Count 287 (150-400) X10^3/uL Neut % (Auto) 79.5 H (50-75) % Lymph % (Auto) 13.8 L (25-40) % [place] % (Auto) 4.8 (3-14) % Eos % (Auto) 1.0 L (2-4) % Baso % (Auto) 0.9 (0-2) % Neut # (Auto) 7600 H (0646-0564) /uL Lymph # (Auto) 1300 (4562-4743) /uL [place] # (Auto) 500 (0-900) /uL Eos # (Auto) 100 (0-450) /uL Baso # (Auto) 100 (0-100) /uL PT 12.1 (10.1-12.7) SECONDS INR 1.1 (0.9-1.3) APTT 31 D (26.4-36.2) SECONDS Sodium 139 (137-145) mmol/L Potassium 3.7 (3.4-5.1) mmol/L Chloride 101 (98-107) mmol/L Carbon Dioxide 24 (22-32) mmol/L BUN 17 (7-17) mg/dL Creatinine 0.70 (0.52-1.04) mg/dL Estimated GFR > 60.0 (>60) mL/min BUN/Creatinine Ratio 24.3 H (6-22) Glucose 145 H (80-110) mg/dL Calcium 10.1 (8.4-10.2) mg/dL Magnesium 1.6 (1.6-2.3) mg/dL Total Bilirubin 0.6 (0.2-1.3) mg/dL AST 23 (14-36) IU/L ALT 18 (9-52) IU/L Alkaline Phosphatase 85 (38-126) U/L Total Protein 7.9 (6.3-8.2) g/dL Albumin 4.5 (3.5-5.0) g/dL Globulin 3.4 (1.7-4.1) g/dL Albumin/Globulin Ratio 1.3 (1.0-2.8) Point of Care Testing Glucose POC 154 Discharge Plan Departure Patient Disposition: Home Clinical Impression: Vertigo, Dizziness Discharge Date/Time: 02/25/19 16:51 Interventions: ED Discharge Assessment Last Done: 02/25/19 16:51 Instructions: Vertigo, DI for Dizziness-Nonvertigo Activity Restrictions/Additional Instructions: Please follow up with primary care provider. The workup that we did here, was mostly normal, however you some of it. Please come back to the ER for any acute concerns such as chest pain or shortness of breath, concern of heart attack or stroke Please rest and push fluids. Prescriptions: No Action aspirin [Aspir-81] 81 mg tablet,delayed release (DR/EC) 81 mg PO DAILY RF: 0 metformin 500 mg Tablet 500 mg PO TID RF: 0 calcitonin (salmon) 200 unit/actuation [place],Non-Aerosol 1 spray INTRANASAL (ALT) DAILY RF: 0 ibuprofen 200 mg Tablet 400 mg PO BID PRN (Reason: Pain, Mild) RF: 0 Tirosint 50 mcg Capsule 50 mcg PO DAILY RF: 0 alexys citrate-mag ox,aspart-D3 250 mg-125 mg- 200 unit Wafer 1 wafer PO DAILY RF: 0 Referrals: Arun Tavares MD [Primary Care Provider] - <Jacquelyn Kwong DO - Last Filed: 02/26/19 06:14> Cosign ED Attending Cosignature Attestation: I was immediately available in the department for consultation, case was discussed at length, discussed with Leia by myself and LIVAN Johnson. This documentation has been reviewed and I agree with assessment and plan. Supervised by Jacquelyn Kwong DO
--- NOTE | 2019-02-25 13:42 | ED_ITS ---
HPI - Nausea/Vomiting/Diarrhea <NICOLLE Gudino - Last Filed: 02/25/19 18:27> General Chief complaint: Nausea/Vomiting/Diarrhea Stated complaint: Dizzy, Nauseated Time Seen by Provider: 02/25/19 13:12 Source: patient, family and EMS Mode of arrival: EMS Limitations: no limitations History of Present Illness HPI Narrative: The patient is a 73-year-old female nonsmoker with history of SVT who presents with a chief complaint of dizziness nausea and vomiting. She had an SVT ablation done yesterday. She has a history of Meniere's disease. She states that this feels like a Meniere's flare. She denies any chest pain or shortness of breath. She states that her ablation was done yesterday at [facility] by Dr. Whyte. She reports some nerve damage to her right lower leg, which has been consistent since the ablation. She denies any confusion, focal weakness, chest pain or shortness of breath. She denies any visual abnormalities or slurred speech. She has not taken anything at home for the Meniere's. Related Data Home Medications Medication Instructions Recorded Confirmed aspirin 81 mg tablet,delayed 81 mg PO DAILY 03/17/18 02/25/19 release alexys citrate-mag ox,aspart-D3 1 wafer PO DAILY 02/25/19 02/25/19 calcitonin (salmon) 1 spray INTRANASAL (ALT) DAILY 02/25/19 02/25/19 ibuprofen 400 mg PO BID PRN 02/25/19 02/25/19 levothyroxine [Tirosint] 50 mcg PO DAILY 02/25/19 02/25/19 metformin 500 mg PO TID 02/25/19 02/25/19 Allergies Allergy/AdvReac Type Severity Reaction Status Date / Time diltiazem Allergy Severe Rash Verified 02/25/19 13:00 sodium Allergy Verified 02/25/19 12:59 Review of Systems <NICOLLE Gudino - Last Filed: 02/25/19 18:27> Review of Systems GENERAL: Denies chills, fatigue, malaise, fever, sweats. HEENT: Denies sinus pain, ear pain, sore throat, difficulty swallowing, dizziness. RESPIRATORY: Denies dyspnea, cough, wheezing, hemoptysis, sputum. CARDIOVASCULAR: Denies chest pain, palpitations, orthopnea, edema, GASTROINTESTINAL: See HPI : Denies dysuria, frequency, incontinence, hematuria, urinary retention. MUSCULOSKELETAL: denies weakness, joint pain, or bony pain SKIN: Denies rash, skin lesions, or other NEUROLOGIC: Denies weakness, headache, numbness, change in speech, confusion, seizures, incoordination. PSYCHIATRIC: No concerning psychosocial issues. 12 point review of systems is negative except for those stated above PFSH <NICOLLE Gudino - Last Filed: 02/25/19 18:27> Medical History Complete uterovaginal prolapse (Acute) GERD (gastroesophageal reflux disease) (Acute) History of compression fracture of spine (Acute) History of ectopic (Acute) Menieres disease (Acute) Osteopenia (Acute) Postmenopausal (Acute) Diabetes (Chronic) Hypothyroidism (acquired) (Chronic) Surgical History History of appendectomy (Acute) History of carpal tunnel repair (Acute) History of kyphoplasty (Acute) History of surgery (Acute) Social History household members: spouse Smoking Status: Never smoker Social History household members: spouse Smoking Status: Never smoker Exam <NICOLLE Gudino - Last Filed: 02/25/19 18:27> Narrative Exam Narrative: GENERAL: Elderly female lying on stretcher HEAD: Atraumatic. Normocephalic. No temporal or scalp tenderness. EYES: Pupils equal round and reactive. Extraocular motions intact. No scleral icterus. No injection or drainage. ENT: Nose without bleeding, purulent drainage or septal hematoma. Throat without erythema, tonsillar hypertrophy or exudate. Uvula midline. Airway patent. NECK: Trachea midline. No JVD or lymphadenopathy. Supple, nontender, no meningeal signs. CARDIOVASCULAR: Regular rate and rhythm without murmurs, gallops, or rubs. RESPIRATORY: Clear to auscultation. Breath sounds equal bilaterally. No wheezes, rales, or rhonchi. No cough. No increased respiratory effort. No accessory muscle use. GASTROINTESTINAL: Abdomen soft, non-tender, nondistended. No hepato- splenomegaly, or palpable masses. No guarding. Active bowel sounds all 4 quadrants. EXTREMITIES: No clubbing, cyanosis, or edema. No joint tenderness, effusion, or edema noted. BACK: Nontender without deformity or crepitance. No flank tenderness. NEURO: AOx3. No gross cranial nerve deficit. Strength is equal upper and lower extremities bilaterally. SKIN: Bilateral femoral access site soft and without ecchymosis. Initial Vital Signs Initial Vital Signs: Vital Signs Temperature 97.8 F 02/25/19 12:50 Pulse Rate 82 02/25/19 12:50 Respiratory Rate 02/25/19 12:50 Blood Pressure 126/79 02/25/19 12:50 Pulse Oximetry 96 02/25/19 12:50 <Jacquelyn Kwong DO - Last Filed: 02/26/19 06:14> Initial Vital Signs Initial Vital Signs: Vital Signs Temperature 97.8 F 02/25/19 12:50 Pulse Rate 82 02/25/19 12:50 Respiratory Rate 02/25/19 12:50 Blood Pressure 126/79 02/25/19 12:50 Pulse Oximetry 96 02/25/19 12:50 Scores <NICOLLE Gudino - Last Filed: 02/25/19 18:27> NIH Stroke Scale Level of Conciousness: Alert, keenly responsive Ask month/age: Answers both questions correctly. Open/close eyes, close hand: Performs both tasks correctly Best gaze horizontal: Normal Visual jaime: No visual loss Facial palsy: Normal symetrical movement Left arm drift: No drift for full 10 sec Right arm drift: No drift for full 10 sec Left leg drift: No drift for full 10 sec Right leg drift: No drift for full 10 sec Limb ataxia: Absent Sensory on face/arms/legs: Normal, no sensory loss Best language: No aphasia, normal Dysarthria: Normal Extinction or inattention: No abnormality Total NIH Stroke scale score: 0 Course <NICOLLE Gudino - Last Filed: 02/25/19 18:27> Orders Ordered: Discontinued Medications Meclizine HCl (Antivert) 50 mg PO NOW ONE Stop: 02/25/19 15:23 Last Admin: 02/25/19 15:27 Dose: 50 mg Ondansetron HCl (Zofran) 4 mg IV NOW ONE Stop: 02/25/19 14:27 Last Admin: 02/25/19 14:30 Dose: 4 mg Vital Signs - 8 hr 02/25/19 12:50 02/25/19 14:33 02/25/19 15:55 Temperature 97.8 F Pulse Rate 82 85 93 H Pulse Rate [Orthostatic Lying] Pulse Rate [Orthostatic Sitting] Pulse Rate [Orthostatic Standing] Respiratory Rate 20 18 16 Blood Pressure 126/79 Blood Pressure [Orthostatic Lying] Blood Pressure [Orthostatic Sitting] Blood Pressure [Orthostatic Standing] Blood Pressure [Right Arm] 129/84 138/75 Pulse Oximetry 96 95 96 02/25/19 16:16 Temperature Pulse Rate Pulse Rate [Orthostatic Lying] 87 Pulse Rate [Orthostatic Sitting] 97 H Pulse Rate [Orthostatic Standing] 102 H Respiratory Rate Blood Pressure Blood Pressure [Orthostatic Lying] 146/72 H Blood Pressure [Orthostatic Sitting] 159/78 H Blood Pressure [Orthostatic Standing] 137/89 Blood Pressure [Right Arm] Pulse Oximetry <Jacquelyn Kwong DO - Last Filed: 02/26/19 06:14> Orders Ordered: Discontinued Medications Meclizine HCl (Antivert) 50 mg PO NOW ONE Stop: 02/25/19 15:23 Last Admin: 02/25/19 15:27 Dose: 50 mg Ondansetron HCl (Zofran) 4 mg IV NOW ONE Stop: 02/25/19 14:27 Last Admin: 02/25/19 14:30 Dose: 4 mg Vital Signs - 8 hr 02/25/19 12:50 02/25/19 14:33 02/25/19 15:55 Temperature 97.8 F Pulse Rate 82 85 93 H Pulse Rate [Orthostatic Lying] Pulse Rate [Orthostatic Sitting] Pulse Rate [Orthostatic Standing] Respiratory Rate 20 18 16 Blood Pressure 126/79 Blood Pressure [Orthostatic Lying] Blood Pressure [Orthostatic Sitting] Blood Pressure [Orthostatic Standing] Blood Pressure [Right Arm] 129/84 138/75 Pulse Oximetry 96 95 96 02/25/19 16:16 Temperature Pulse Rate Pulse Rate [Orthostatic Lying] 87 Pulse Rate [Orthostatic Sitting] 97 H Pulse Rate [Orthostatic Standing] 102 H Respiratory Rate Blood Pressure Blood Pressure [Orthostatic Lying] 146/72 H Blood Pressure [Orthostatic Sitting] 159/78 H Blood Pressure [Orthostatic Standing] 137/89 Blood Pressure [Right Arm] Pulse Oximetry MDM - Nausea/Vomiting/Diarrhea <MECCA Gudino- - Last Filed: 02/25/19 18:27> Lab Data Result diagrams: 02/25/19 14:54 02/25/19 14:54 Lab Results 02/25/19 02/25/19 02/25/19 Range/Units 14:54 14:54 14:54 WBC 9.6 (4.5-11.0) X10^3/uL RBC 4.85 (4.0-5.2) X10^6/uL Hgb 14.3 (12.0-16.0) g/dL Hct 42.9 (36-46) % MCV 88.5 (80-100) fL MCH 29.5 (26-34) PG MCHC 33.3 (30-36) % RDW 15.6 H (11.6-14.8) % Plt Count 287 (150-400) X10^3/uL Neut % (Auto) 79.5 H (50-75) % Lymph % (Auto) 13.8 L (25-40) % [place] % (Auto) 4.8 (3-14) % Eos % (Auto) 1.0 L (2-4) % Baso % (Auto) 0.9 (0-2) % Neut # (Auto) 7600 H (8487-9185) /uL Lymph # (Auto) 1300 (0670-4654) /uL [place] # (Auto) 500 (0-900) /uL Eos # (Auto) 100 (0-450) /uL Baso # (Auto) 100 (0-100) /uL PT 12.1 (10.1-12.7) SECONDS INR 1.1 (0.9-1.3) APTT 31 D (26.4-36.2) SECONDS Sodium 139 (137-145) mmol/L Potassium 3.7 (3.4-5.1) mmol/L Chloride 101 (98-107) mmol/L Carbon Dioxide 24 (22-32) mmol/L BUN 17 (7-17) mg/dL Creatinine 0.70 (0.52-1.04) mg/dL Estimated GFR > 60.0 (>60) mL/min BUN/Creatinine Ratio 24.3 H (6-22) Glucose 145 H (80-110) mg/dL Calcium 10.1 (8.4-10.2) mg/dL Magnesium 1.6 (1.6-2.3) mg/dL Total Bilirubin 0.6 (0.2-1.3) mg/dL AST 23 (14-36) IU/L ALT 18 (9-52) IU/L Alkaline Phosphatase 85 (38-126) U/L Total Protein 7.9 (6.3-8.2) g/dL Albumin 4.5 (3.5-5.0) g/dL Globulin 3.4 (1.7-4.1) g/dL Albumin/Globulin Ratio 1.3 (1.0-2.8) Point of Care Testing Glucose POC 154 Imaging Data Chest x-ray: Radiologist's impression: Chart Viewer Diagnostics DATE TYPE STATUS AUTHOR Hx 02/25/19 14:40 Tk Barroso 11/23/18 00:00 Sanjeev Zamora 11/23/18 00:00 Sanjeev Zamora 11/03/18 00:00 10/21/18 20:11 Dayami Villar 06/30/18 19:45 Alf Garcia Linda Sue 73, 1945 DEP ER, ED.LOC - Main ED 149.86cm 59.421kg BMI: 26.5kg/m? Nausea/Vomiting/Diarrhea Search Chart No Data to Display Rash ONSET Today 16:16 Soraida Barry 73 F [address] [address] XRay Report Signed Patient: Soraida Barry KelseyR#: [id number] : 5Acct:[id number] Age/Sex: 73 / FDate of Service: 02/25/19 Loc: ED Accession Number: [id number] Procedure: XR chest 1V Ordering Provider: Jacquelyn Lee PROCEDURE: XR CHEST 1V INDICATIONS: dizzy post ablation TECHNIQUE: One view of the chest was acquired. [facility] FINDINGS: Surgical changes and devices: Vertebroplasty changes involving multiple levels of the imaged thoracolumbar spine are present. Lungs and pleura: There is slight blunting of the left costophrenic angle. No large areas of consolidation are present. No pneumothorax is evident. Mediastinum: Mediastinal contours appear normal. Heart size is normal. There is aortic atherosclerosis. Bones and chest wall: No suspicious bony lesions. Overlying soft tissues appe ar unremarkable. IMPRESSION: 1. No acute cardio pulmonary process is evident. 2. Trace effusion versus minimal scarring/atelectasis at the left costophrenic angle. Dictated by: Tk aBrroso M.D. on 02/25/2019 at 14:39 Approved by: Tk Barroso M.D. on 02/25/2019 at 14:42 ECG Data Interpretation: Sinus rhythm. Ventricular rate 83. No ST elevation or depression. No ectopy noted. Viewed by Dr Kwong 13:01 [facility] Narrative Medical decision making narrative: The patient is a 73-year-old female presents with chief complaint of dizziness nausea and vomiting after an ablation. Given that she just had ablation, she is at high risk of stroke. She has an NIH of 0. The patient repeatedly declined a head CT during her stay in the ER. She denied any chest pain or shortness of breath, some a clinical suspicion of a cardiac event is low. I spoke with Dr. Dupree regarding obtaining a troponin, as I would expect it to be elevated given her recent ablation. He stated to not do a less there is high clinical suspicion of a cardiac event. The patient also repeatedly declined medications for nausea and dizziness. I discussed at length the risk factors of missing a stroke on head CT, such as . Patient stated understanding and repeatedly declined the CT scan. Orthostatics were negative and she was able to ambulate well. I discussed at length coming back to the ER for any acute concerns such as chest pain or shortness of breath. Discussed follow-up with PCP. Patient has no questions or concerns upon discharge. <Jacquelyn Kwong, DO - Last Filed: 02/26/19 06:14> Lab Data Lab Results 02/25/19 02/25/19 02/25/19 Range/Units 14:54 14:54 14:54 WBC 9.6 (4.5-11.0) X10^3/uL RBC 4.85 (4.0-5.2) X10^6/uL Hgb 14.3 (12.0-16.0) g/dL Hct 42.9 (36-46) % MCV 88.5 (80-100) fL MCH 29.5 (26-34) PG MCHC 33.3 (30-36) % RDW 15.6 H (11.6-14.8) % Plt Count 287 (150-400) X10^3/uL Neut % (Auto) 79.5 H (50-75) % Lymph % (Auto) 13.8 L (25-40) % [place] % (Auto) 4.8 (3-14) % Eos % (Auto) 1.0 L (2-4) % Baso % (Auto) 0.9 (0-2) % Neut # (Auto) 7600 H (5340-5538) /uL Lymph # (Auto) 1300 (1068-3685) /uL [place] # (Auto) 500 (0-900) /uL Eos # (Auto) 100 (0-450) /uL Baso # (Auto) 100 (0-100) /uL PT 12.1 (10.1-12.7) SECONDS INR 1.1 (0.9-1.3) APTT 31 D (26.4-36.2) SECONDS Sodium 139 (137-145) mmol/L Potassium 3.7 (3.4-5.1) mmol/L Chloride 101 (98-107) mmol/L Carbon Dioxide 24 (22-32) mmol/L BUN 17 (7-17) mg/dL Creatinine 0.70 (0.52-1.04) mg/dL Estimated GFR > 60.0 (>60) mL/min BUN/Creatinine Ratio 24.3 H (6-22) Glucose 145 H (80-110) mg/dL Calcium 10.1 (8.4-10.2) mg/dL Magnesium 1.6 (1.6-2.3) mg/dL Total Bilirubin 0.6 (0.2-1.3) mg/dL AST 23 (14-36) IU/L ALT 18 (9-52) IU/L Alkaline Phosphatase 85 (38-126) U/L Total Protein 7.9 (6.3-8.2) g/dL Albumin 4.5 (3.5-5.0) g/dL Globulin 3.4 (1.7-4.1) g/dL Albumin/Globulin Ratio 1.3 (1.0-2.8) Point of Care Testing Glucose POC 154 Discharge Plan Departure Patient Disposition: Home Clinical Impression: Vertigo, Dizziness Discharge Date/Time: 02/25/19 16:51 Interventions: ED Discharge Assessment Last Done: 02/25/19 16:51 Instructions: Vertigo, DI for Dizziness-Nonvertigo Activity Restrictions/Additional Instructions: Please follow up with primary care provider. The workup that we did here, was mostly normal, however you some of it. Please come back to the ER for any acute concerns such as chest pain or shortness of breath, concern of heart attack or stroke Please rest and push fluids. Prescriptions: No Action aspirin [Aspir-81] 81 mg tablet,delayed release (DR/EC) 81 mg PO DAILY RF: 0 metformin 500 mg Tablet 500 mg PO TID RF: 0 calcitonin (salmon) 200 unit/actuation [place],Non-Aerosol 1 spray INTRANASAL (ALT) DAILY RF: 0 ibuprofen 200 mg Tablet 400 mg PO BID PRN (Reason: Pain, Mild) RF: 0 Tirosint 50 mcg Capsule 50 mcg PO DAILY RF: 0 alexys citrate-mag ox,aspart-D3 250 mg-125 mg- 200 unit Wafer 1 wafer PO DAILY RF: 0 Referrals: Arun Tavares MD [Primary Care Provider] - <Jacquelyn Kwong DO - Last Filed: 02/26/19 06:14> Cosign ED Attending Cosignature Attestation: I was immediately available in the department for consultation, case was discussed at length, discussed with Leia by myself and LIVAN Johnson. This documentation has been reviewed and I agree with assessment and plan. Supervised by Jacquelyn Kwong DO
[2019-02-25] MEDS: ONDANSETRON 4 MG/2 ML INJ IV (14:30)
[2019-02-25 14:33] VITALS: BP 129/84; PULSE 85; RESP 18; O2SAT 95
--- NOTE | 2019-02-25 14:40 | DI.RAD.S_ITS ---
PROCEDURE: XR CHEST 1V INDICATIONS: dizzy post ablation TECHNIQUE: One view of the chest was acquired. COMPARISON: [facility], CR, XR CHEST 1V, 10/21/2018, 20:27. FINDINGS: Surgical changes and devices: Vertebroplasty changes involving multiple levels of the imaged thoracolumbar spine are present. Lungs and pleura: There is slight blunting of the left costophrenic angle. No large areas of consolidation are present. No pneumothorax is evident. Mediastinum: Mediastinal contours appear normal. Heart size is normal. There is aortic atherosclerosis. Bones and chest wall: No suspicious bony lesions. Overlying soft tissues appear unremarkable. IMPRESSION: 1. No acute cardio pulmonary process is evident. 2. Trace effusion versus minimal scarring/atelectasis at the left costophrenic angle. Dictated by: Tk Barroso M.D. on 02/25/2019 at 14:39 Approved by: Tk Barroso M.D. on 02/25/2019 at 14:42
[2019-02-25 15:01] LABS: Add Manual Diff / Slide Review NO; Basophils Absolute Auto 100 /uL (0-100); Basophils Percent Auto 0.9 % (0-2); Eosinophils Absolute Auto 100 /uL (0-450); Hematocrit 42.9 % (36-46); Hemoglobin 14.3 g/dL (12.0-16.0); Lymphocytes Absolute Auto 1300 /uL (1100-4500); Lymphocytes Percent Auto 13.8 % (25-40); Mean Corpuscular HGB Conc 33.3 % (30-36); Mean Corpuscular Hemoglobin 29.5 PG (26-34); Mean Corpuscular Volume 88.5 fL (80-100); Monocytes Absolute Auto 500 /uL (0-900); Monocytes Percent Auto 4.8 % (3-14); Neutrophils Absolute Auto 7600 /uL (1500-7000); Neutrophils Percent Auto 79.5 % (50-75); Platelet Count 287 X10^3/uL (150-400); Red Blood Cell Count 4.85 X10^6/uL (4.0-5.2); Red Cell Distribution Width 15.6 % (11.6-14.8); White Blood Cell Count 9.6 X10^3/uL (4.5-11.0)
[2019-02-25 15:07] LABS: INR 1.1 (0.9-1.3); Prothrombin Time 12.1 SECONDS (10.1-12.7)
[2019-02-25 15:10] LABS: PTT Partial Thromboplastin Tim 31 SECONDS (26.4-36.2)
[2019-02-25 15:12] LABS: Alanine Aminotransferase 18 IU/L (9-52); Albumin 4.5 g/dL (3.5-5.0); Albumin Globulin Ratio 1.3 (1.0-2.8); Alkaline Phosphatase 85 U/L (38-126); Aspartate Aminotransferase 23 IU/L (14-36); BUN Creatinine Ratio 24.3 (6-22); Bilirubin Total 0.6 mg/dL (0.2-1.3); Blood Urea Nitrogen 17 mg/dL (7-17); Calcium 10.1 mg/dL (8.4-10.2); Carbon Dioxide 24 mmol/L (22-32); Chloride 101 mmol/L (98-107); Estimated Glomerular Filt Rate > 60.0 mL/min (>60); Globulin 3.4 g/dL (1.7-4.1); Glucose 145 mg/dL (80-110); HEMOLYSIS < 15 (0-50); Magnesium 1.6 mg/dL (1.6-2.3); Potassium 3.7 mmol/L (3.4-5.1); Sodium 139 mmol/L (137-145); Total Protein 7.9 g/dL (6.3-8.2)
[2019-02-25] MEDS: MECLIZINE HCL 12.5 MG TABLET 50 MG PO (15:27)
[2019-02-25 15:55] VITALS: BP 138/75; PULSE 93; RESP 16; O2SAT 96
--- NOTE | 2019-02-25 15:56 | PC.NURSE ---
pt continues to refuse the ct scan. RICHA Valladares aware.
[2019-02-25 16:16] VITALS: BP 137/89; BP 146/72; BP 159/78; PULSE 102; PULSE 87; PULSE 97
== END 2019-02-25 16:51 | disposition home or self-care (01) ==
PROVIDERS: Emergency Provider Nurse Practitioner Family; Family Provider Family Medicine; PCP Family Medicine
DX: R42 Dizziness and giddiness (principal); Z87.898 Personal history of other specified conditions; Z98.890 Other specified postprocedural states
CPT/HCPCS: 36415; 70450; 71045; 80053; 82962; 83735; 85025; 85610; 85730; 93005; 99283; J2405

== ENCOUNTER 2019-05-09 15:10 | Emergency (ER) | payer MEDICARE, OTHER, SELFPAY ==
[2019-05-09 15:12] VITALS: BP 130/84; PULSE 130; RESP 18; TEMP 36.4; O2SAT 98
--- NOTE | 2019-05-09 15:17 | DI.RAD.S_ITS ---
PROCEDURE: XR CHEST 1V INDICATIONS: chest pain TECHNIQUE: One view of the chest was acquired. COMPARISON: [facility], CR, XR CHEST 1V, 02/25/2019, 15:12. FINDINGS: Surgical changes and devices: None. Lungs and pleura: No acute consolidation. Scattered subsegmental atelectasis and/or scarring. No pleural effusion. Blunting of both costophrenic angles which appears unchanged No pneumothorax. Mediastinum: Mediastinal contours appear normal. Heart size is normal. Bones and chest wall: No suspicious bony lesions. Overlying soft tissues appear unremarkable. Multiple vertebroplasty. Lateral curvature of the spine IMPRESSION: No acute disease or interval change Dictated by: Juan C Brooks M.D. on 05/09/2019 at 15:53 Approved by: Juan C Brooks M.D. on 05/09/2019 at 15:54
[2019-05-09 15:31] VITALS: BP 112/82; PULSE 129; RESP 18; O2SAT 95
[2019-05-09 15:36] LABS: Add Manual Diff / Slide Review NO; Basophils Absolute Auto 100 /uL (0-100); Basophils Percent Auto 1.3 % (0-2); Eosinophils Absolute Auto 200 /uL (0-450); Eosinophils Percent Auto 1.9 % (2-4); Hematocrit 44.2 % (36-46); Hemoglobin 14.8 g/dL (12.0-16.0); Lymphocytes Absolute Auto 2400 /uL (1100-4500); Lymphocytes Percent Auto 28.4 % (25-40); Mean Corpuscular HGB Conc 33.4 % (30-36); Mean Corpuscular Hemoglobin 29.5 PG (26-34); Mean Corpuscular Volume 88.6 fL (80-100); Monocytes Absolute Auto 700 /uL (0-900); Neutrophils Absolute Auto 5100 /uL (1500-7000); Neutrophils Percent Auto 60.4 % (50-75); Platelet Count 398 X10^3/uL (150-400); Red Blood Cell Count 4.99 X10^6/uL (4.0-5.2); Red Cell Distribution Width 14.2 % (11.6-14.8); White Blood Cell Count 8.4 X10^3/uL (4.5-11.0)
--- NOTE | 2019-05-09 15:40 | PC.NURSE ---
States that any normal saline use including to flush IV's exacerbates menieres disease and makes her very dizzy 'for days'. Asked that I use d5 for flush. Dr. Carson aware.
[2019-05-09 15:43] LABS: INR 1.1 (0.9-1.3); Prothrombin Time 12.3 SECONDS (10.1-12.7)
[2019-05-09 15:46] LABS: PTT Partial Thromboplastin Tim 32 SECONDS (26.4-36.2)
[2019-05-09 15:47] LABS: Alanine Aminotransferase 18 IU/L (9-52); Albumin 4.5 g/dL (3.5-5.0); Albumin Globulin Ratio 1.3 (1.0-2.8); Alkaline Phosphatase 105 U/L (38-126); Aspartate Aminotransferase 27 IU/L (14-36); BUN Creatinine Ratio 27.5 (6-22); Bilirubin Total 0.6 mg/dL (0.2-1.3); Blood Urea Nitrogen 22 mg/dL (7-17); Carbon Dioxide 23 mmol/L (22-32); Chloride 102 mmol/L (98-107); Creatine Kinase 35 U/L (30-135); Estimated Glomerular Filt Rate > 60.0 mL/min (>60); Globulin 3.4 g/dL (1.7-4.1); Glucose 167 mg/dL (80-110); HEMOLYSIS 21 (0-50); Lipase 226 U/L (23-300); Magnesium 1.8 mg/dL (1.6-2.3); Sodium 139 mmol/L (137-145); Total Protein 7.9 g/dL (6.3-8.2)
[2019-05-09 15:58] LABS: Troponin I < 0.012 ng/mL (0.01-0.034)
--- NOTE | 2019-05-09 16:17 | ED.ARRPALP ---
HPI - Arrhythmia/Palpitations General Chief Complaint: Arrhythmia/Palpitations Stated Complaint: HEART PALPITATIONS Time Seen by Provider: 05/09/19 15:52 Source: patient and old records reviewed Mode of arrival: Ambulatory Limitations: no limitations History of Present Illness HPI narrative: Patient is a 73-year-old female who presents with heart palpitations. She has a history of SVT which she had ablation for in. She has already been seen by Dr. Whyte her emergency crew supervisor and did not work. She just Holter she turned in yesterday. However yesterday started noticing that her heart rate increased to the 150s. She took 3 doses of metoprolol and only brought it down to 120. She took a dose of diltiazem last night it still did not work. She consistently had a heart rate 124-126. Tonight any dizziness or lightheadedness. She is adamant that she not have any normal saline or anything with sodium in it because it worsens her Meniere's disease. She has previously received normal saline. MD complaint: rapid heart beat Related Data Home Medications Medication Instructions Recorded Confirmed aspirin 81 mg tablet,delayed 81 mg PO DAILY 03/17/18 05/09/19 release calcitonin (salmon) 1 spray INTRANASAL (ALT) DAILY 02/25/19 05/09/19 ibuprofen 400 mg PO BID PRN 02/25/19 05/09/19 levothyroxine [Tirosint] 50 mcg PO DAILY 02/25/19 05/09/19 metformin 500 mg PO TID 02/25/19 05/09/19 Calcium 500 + D 1 tab PO DAILY 05/09/19 05/09/19 lisinopril 2.5 mg PO DAILY 05/09/19 05/09/19 metoprolol tartrate 25 mg PO TID PRN 05/09/19 05/09/19 Allergies Allergy/AdvReac Type Severity Reaction Status Date / Time diltiazem Allergy Severe Rash Verified 05/09/19 15:17 sodium chloride for AdvReac Severe Dizziness Verified 05/09/19 15:40 inhalation [From Saline] Review of Systems Review of Systems Narrative: GENERAL: Denies chills, fatigue, malaise, fever, sweats, travel HEENT: Denies sinus pain, ear pain, sore throat, difficulty swallowing, neck pain RESPIRATORY: Denies dyspnea, cough, wheezing, hemoptysis, sputum. CARDIOVASCULAR: See HPI GASTROINTESTINAL: Denies nausea, vomiting, abdominal pain, diarrhea, constipation, melena. : Denies dysuria, frequency, incontinence, hematuria, urinary retention, flank pain. MUSCULOSKELETAL: Denies weakness, joint pain, or bony pain SKIN: No rash, no erythema, no pruritus NEUROLOGIC: Denies weakness, dizziness, headache, numbness, change in speech, confusion PSYCHIATRIC: No concerning psychosocial issues. 12 point review of systems is negative except for those stated above and HPI [facility] Medical History Complete uterovaginal prolapse (Acute) Diabetes (Chronic) GERD (gastroesophageal reflux disease) (Acute) History of compression fracture of spine (Acute) History of ectopic (Acute) Hypothyroidism (acquired) (Chronic) Menieres disease (Acute) Osteopenia (Acute) Postmenopausal (Acute) Surgical History History of appendectomy (Acute) History of carpal tunnel repair (Acute) History of kyphoplasty (Acute) History of surgery (Acute) Social History household members: spouse Smoking Status: Never smoker Social History household members: spouse Smoking Status: Never smoker Exam Initial Vital Signs Initial Vital Signs: Vital Signs Temperature 97.6 F 05/09/19 15:12 Pulse Rate 130 H 05/09/19 15:12 Respiratory Rate 18 05/09/19 15:12 Blood Pressure 130/84 05/09/19 15:12 Pulse Oximetry 98 05/09/19 15:12 GENERAL: Well-appearing, well-nourished] and in no acute distress. HEENT: Head atraumatic,EOMI, pupils reactive, face symmetric, moist mucous membranes CARDIOVASCULAR: Tachycardic regular no murmurs RESPIRATORY: Breath sounds equal bilaterally, no wheezes rales or rhonchi. ABDOMEN: Soft, nontender. Normoactive bowel sounds all 4 quadrants. No guarding or rebound. EXTREMITIES: Normal range of motion, no clubbing or edema. Neurovascularly intact NEUROLOGICAL: Alert and oriented x4.Normal gait and speech. Cranial nerves II through XII grossly intact. SKIN: Warm, dry, no laceration, no petechiae, no rashes or lesions. Course Orders Ordered: ED Orders 05/09/19 15:17 XR chest 1V Stat EKG-12 Lead Stat 05/09/19 15:30 Complete Blood Count AUTO DIFF Stat Comprehensive Metabolic Panel Stat Lipase Stat Magnesium Stat Partial Thromboplastin Time Stat Prothrombin Time INR Stat TSH w/ Reflex to FT4 Stat Troponin & CK Cardiac Panel Stat 05/09/19 16:58 EKG-12 Lead Routine Discontinued Medications Diltiazem HCl (Cardizem) 10 mg IV NOW ONE Stop: 05/09/19 16:26 Last Admin: 05/09/19 16:48 Dose: 10 mg Documented by: CLARENCE Vital Signs Vital signs: Vital Signs - 8 hr 05/09/19 15:12 05/09/19 15:31 05/09/19 16:30 Temperature 97.6 F Pulse Rate 130 H 129 H 123 H Respiratory Rate 18 18 15 Blood Pressure 130/84 Blood Pressure [Left Arm] 112/82 120/82 Pulse Oximetry 98 95 96 05/09/19 17:00 Temperature Pulse Rate 69 Respiratory Rate 20 Blood Pressure Blood Pressure [Left Arm] 122/69 Pulse Oximetry 97 MDM - Arrhythmia/Palpitations Lab Data Attestation: I reviewed the patient's lab results. Result diagrams: 05/09/19 15:30 05/09/19 15:30 Labs: Lab Results 05/09/19 05/09/19 05/09/19 Range/Units 15:30 15:30 15:30 WBC 8.4 (4.5-11.0) X10^3/uL RBC 4.99 (4.0-5.2) X10^6/uL Hgb 14.8 (12.0-16.0) g/dL Hct 44.2 (36-46) % MCV 88.6 (80-100) fL MCH 29.5 (26-34) PG MCHC 33.4 (30-36) % RDW 14.2 (11.6-14.8) % Plt Count 398 (150-400) X10^3/uL Neut % (Auto) 60.4 (50-75) % Lymph % (Auto) 28.4 (25-40) % [place] % (Auto) 8.0 (3-14) % Eos % (Auto) 1.9 L (2-4) % Baso % (Auto) 1.3 (0-2) % Neut # (Auto) 5100 (2799-4048) /uL Lymph # (Auto) 2400 (4639-6052) /uL [place] # (Auto) 700 (0-900) /uL Eos # (Auto) 200 (0-450) /uL Baso # (Auto) 100 (0-100) /uL PT 12.3 (10.1-12.7) SECONDS INR 1.1 (0.9-1.3) APTT 32 (26.4-36.2) SECONDS Sodium 139 (137-145) mmol/L Potassium 4.0 (3.4-5.1) mmol/L Chloride 102 (98-107) mmol/L Carbon Dioxide 23 (22-32) mmol/L BUN 22 H (7-17) mg/dL Creatinine 0.80 (0.52-1.04) mg/dL Estimated GFR > 60.0 (>60) mL/min BUN/Creatinine Ratio 27.5 H (6-22) Glucose 167 H (80-110) mg/dL Calcium 10.0 (8.4-10.2) mg/dL Magnesium 1.8 (1.6-2.3) mg/dL Total Bilirubin 0.6 (0.2-1.3) mg/dL AST 27 (14-36) IU/L ALT 18 (9-52) IU/L Alkaline Phosphatase 105 (38-126) U/L Total Creatine Kinase 35 (30-135) U/L CK-MB (CK-2) TNP CK-MB (CK-2) Rel Index TNP Troponin I < 0.012 (0.01-0.034) ng/mL Total Protein 7.9 (6.3-8.2) g/dL Albumin 4.5 (3.5-5.0) g/dL Globulin 3.4 (1.7-4.1) g/dL Albumin/Globulin Ratio 1.3 (1.0-2.8) Lipase 226 (23-300) U/L TSH (0.47-4.68) uIU/mL 05/09/19 Range/Units 15:30 WBC (4.5-11.0) X10^3/uL RBC (4.0-5.2) X10^6/uL Hgb (12.0-16.0) g/dL Hct (36-46) % MCV (80-100) fL MCH (26-34) PG MCHC (30-36) % RDW (11.6-14.8) % Plt Count (150-400) X10^3/uL Neut % (Auto) (50-75) % Lymph % (Auto) (25-40) % [place] % (Auto) (3-14) % Eos % (Auto) (2-4) % Baso % (Auto) (0-2) % Neut # (Auto) (4254-6981) /uL Lymph # (Auto) (3089-6551) /uL [place] # (Auto) (0-900) /uL Eos # (Auto) (0-450) /uL Baso # (Auto) (0-100) /uL PT (10.1-12.7) SECONDS INR (0.9-1.3) APTT (26.4-36.2) SECONDS Sodium (137-145) mmol/L Potassium (3.4-5.1) mmol/L Chloride (98-107) mmol/L Carbon Dioxide (22-32) mmol/L BUN (7-17) mg/dL Creatinine (0.52-1.04) mg/dL Estimated GFR (>60) mL/min BUN/Creatinine Ratio (6-22) Glucose (80-110) mg/dL Calcium (8.4-10.2) mg/dL Magnesium (1.6-2.3) mg/dL Total Bilirubin (0.2-1.3) mg/dL AST (14-36) IU/L ALT (9-52) IU/L Alkaline Phosphatase (38-126) U/L Total Creatine Kinase (30-135) U/L CK-MB (CK-2) CK-MB (CK-2) Rel Index Troponin I (0.01-0.034) ng/mL Total Protein (6.3-8.2) g/dL Albumin (3.5-5.0) g/dL Globulin (1.7-4.1) g/dL Albumin/Globulin Ratio (1.0-2.8) Lipase (23-300) U/L TSH 1.30 (0.47-4.68) uIU/mL Imaging Data Chest x-ray: Radiologist's impression: PROCEDURE: XR CHEST 1V INDICATIONS: chest pain TECHNIQUE: One view of the chest was acquired. COMPARISON: [facility], CR, XR CHEST 1V, 02/25/2019, 15:12. FINDINGS: Surgical changes and devices: None. Lungs and pleura: No acute consolidation. Scattered subsegmental atelectasis and/or scarring. No pleural effusion. Blunting of both costophrenic angles which appears unchanged No pneumothorax. Mediastinum: Mediastinal contours appear normal. Heart size is normal. Bones and chest wall: No suspicious bony lesions. Overlying soft tissues appear unremarkable. Multiple vertebroplasty. Lateral curvature of the spine IMPRESSION: No acute disease or interval change Dictated by: Juan C Brooks M.D. on 05/09/2019 at 15:53 ECG Data Attestation: I personally reviewed and interpreted this ECG as follows: Prior ECG tracings: available for review Interpretation: Atrial flutter with one-to-one block rate [address] changes similar to previous EKG in October 2018. Repeat EKG sinus rhythm rate 53 P waves noted and no ST elevations or T-wave inversions MDM Narrative Medical decision making narrative: Patient states her neutral heart rate was in the 160s it is questionable if this is SVT versus a different rhythm. She did not convert on her own after metoprolol and diltiazem. However IV diltiazem has worked for her in the past. It seemed to work for her again today. She feels better and able to go home. She is following up her emergency crew supervisor Dr. Whyte. Discharge Plan Departure Patient Disposition: Home Clinical Impression: Paroxysmal SVT (supraventricular tachycardia) Discharge Date/Time: 05/09/19 17:24 Instructions: DI for Arrhythmias Activity Restrictions/Additional Instructions: *You have been diagnosed with SVT or possible atrial flutter *What to do: Please see your emergency crew supervisor *Continue to take medications as directed *Follow up with your primary care provider in 2-3 days *Return to ER if you should have increasing heart palpitations chest pain dizziness or lightheadedness or any new, worsening or concerning symptoms Prescriptions: No Action aspirin [Aspir-81] 81 mg tablet,delayed release (DR/EC) 81 mg PO DAILY RF: 0 metformin 500 mg Tablet 500 mg PO TID RF: 0 calcitonin (salmon) 200 unit/actuation [place],Non-Aerosol 1 spray INTRANASAL (ALT) DAILY RF: 0 ibuprofen 200 mg Tablet 400 mg PO BID PRN (Reason: Pain, Mild) RF: 0 Tirosint 50 mcg Capsule 50 mcg PO DAILY RF: 0 lisinopril 2.5 mg Tablet 2.5 mg PO DAILY RF: 0 metoprolol tartrate 25 mg Tablet 25 mg PO TID PRN (Reason: palpitations) RF: 0 Calcium 500 + D 1 tab PO DAILY RF: 0 Referrals: Jonathan Whyte MD [Physician] - Arun aTvares MD [Primary Care Provider] -
[2019-05-09 16:30] VITALS: BP 120/82; PULSE 123; RESP 15; O2SAT 96
[2019-05-09] MEDS: dilTIAZem 5 MG/ML SDV 10 MG IV (16:48)
[2019-05-09 17:00] VITALS: BP 122/69; PULSE 69; RESP 20; O2SAT 97
== END 2019-05-09 17:24 | disposition home or self-care (01) ==
PROVIDERS: Emergency Provider Emergency Medicine; Family Provider Family Medicine; PCP Family Medicine
DX: I47.1 Supraventricular tachycardia (principal)
CPT/HCPCS: 36415; 71045; 80053; 82550; 83690; 83735; 84443; 84484; 85025; 85610; 85730; 93005; 96374; 99283; 99285

== ENCOUNTER → 2020-01-20 11:41 | Outpatient (CLI) | payer MEDICARE, OTHER, SELFPAY ==
--- NOTE | 2020-01-20 | DI.MRI.S_ITS ---
PROCEDURE: MR HEAD/BRAIN WO/W CON INDICATIONS: Dizziness and giddiness TECHNIQUE: Noncontrast axial T1 spin echo, axial T2 fast spin echo, sagittal and axial FLAIR, coronal T2 fast spin echo, axial gradient echo, axial diffusion and ADC through the brain. After the administration of contrast, axial and coronal 3D VIBE or T1 spin echo with fat saturation through the brain. COMPARISON: None. FINDINGS: Image quality: Excellent. CSF Spaces: Basal cisterns are patent. No extra-axial fluid collections. Ventricles are normal in size and shape. Brain: No midline shift. No intracranial bleeds or masses. No abnormal intracranial enhancement. The brainstem appears normal. Diffusion-weighted images demonstrate no acute ischemic insults. No chronic ischemic insults. Normal intravascular flow voids are present. Skull and face: Calvarial marrow is normal in signal. Orbits appear normal. Sinuses: Sinuses and mastoids appear clear. IMPRESSION: Unremarkable brain MRI with and without contrast. No evidence of acute stroke, hemorrhage, or mass. Normal appearing brain parenchyma for patient age. Dictated by: Chris Raymond M.D. on 01/20/2020 at 12:49 Approved by: Chris Raymond M.D. on 01/20/2020 at 12:57
== END ==
PROVIDERS: Family Provider Family Medicine; PCP Family Medicine; Referring Provider Family Medicine; Visit Provider Family Medicine
DX: R42 Dizziness and giddiness (principal); R51 Headache
CPT/HCPCS: 70553

== ENCOUNTER 2020-04-07 10:30 | Emergency (ER) | payer MEDICARE, OTHER, SELFPAY ==
[2020-04-07 10:46] VITALS: BP 161/82; PULSE 81; RESP 19; TEMP 36.9; O2SAT 99
--- NOTE | 2020-04-07 11:01 | ED_ITS ---
HPI - Back Pain/Injury <Kym Morris PA-C - Last Filed: 04/07/20 21:16> General Chief Complaint: Back Pain/Injury Stated Complaint: POSSIBLE REACTION TO STEROID Time Seen by Provider: 04/07/20 11:01 Source: patient Limitations: no limitations History of Present Illness HPI Narrative: This is a 75-year-old woman with a history of SVT, multiple back surgeries, sciatica, Osteopenia, Menieres, diabetes, hypothyroid, and arthritis of her hip, who presents to the emergency department complaining of severe 10/10 pain in her low back across her pelvis and in the front along the joint of her pelvis where her thigh fold. She states that this morning she began experiencing severe pain that felt different than any of her previous sciatic type pain, to the point where she was unable to walk had to use her cane which she has not used an a while now. Family in the room with her states that they have not seen her in this kind of pain before. She describes it as like a flowing pain saying that it comes on intensely and then gradually resolves and then comes back. She also had some ?shakiness this morning in her hands. After being in a room for a little while the patient states that her pain has resolved now, it is about a 2/10 and is more consistent with a sciatic type pain she usually experiences. She denies any recent falls or injury. She notes that she got a shot of Toradol from her primary care as well as a course of steroids which she has been taking just took her 7th does these were prescribed for her ongoing left-sided hip pain which had been worsening. She also knows she use CBD oil topically for the 1st time last night on her lower leg knee and I and actually felt pretty good this morning after doing so until her pain began. She said she was generally feeling better since taking the steroids until this morning when she had the episode of severe pain. She denies any numbness or tingling of her groin area, any loss of bowel or bladder function, has been having normal bowel movements for her, no dysuria, no fever, no chills no shortness of breath, or any other symptoms. MD Complaint: back pain ( and Left hip pain) Onset (ago): hour(s) (2) Duration: improved ( now 2/10-- Chronic sciatic pain, pain she experienced earlier has now resolved.) Similar Symptoms Previously: Yes Location: lumbar spine (and left hip) Severity: severe Quality: other (flowing) Radiation: other ( at 1 point radiated from her back up towards her neck) Severity scale (1-10): >10 ( 10/10 on ED presentation, 2/10 on my exam) Relieving factors: none Exacerbating factors: walking ( was unable to walk earlier due to pain) Context: unknown Associated symptoms: fatigue ( has been taking steroids) and other ( some shakiness of hands now seems to be improved) Related Data Home Medications Medication Instructions Recorded Confirmed aspirin 81 mg tablet,delayed 81 mg PO DAILY 03/17/18 05/09/19 release calcitonin (salmon) 1 spray INTRANASAL (ALT) DAILY 02/25/19 05/09/19 ibuprofen 400 mg PO BID PRN 02/25/19 05/09/19 levothyroxine [Tirosint] 50 mcg PO DAILY 02/25/19 05/09/19 metformin 500 mg PO TID 02/25/19 05/09/19 Calcium 500 + D 1 tab PO DAILY 05/09/19 05/09/19 lisinopril 2.5 mg PO DAILY 05/09/19 05/09/19 metoprolol tartrate 25 mg PO TID PRN 05/09/19 05/09/19 Allergies Allergy/AdvReac Type Severity Reaction Status Date / Time diltiazem Allergy Severe Rash Verified 04/07/20 10:56 sodium chloride for AdvReac Severe Dizziness Verified 04/07/20 10:56 inhalation [From Saline] Review of Systems <Kym Morris PA-C - Last Filed: 04/07/20 21:16> Review of Systems Narrative: GENERAL: Denies chills, fatigue, malaise, fever, sweats. HEENT: Denies sinus pain, ear pain, sore throat, difficulty swallowing, dizziness. RESPIRATORY: Denies dyspnea, cough, wheezing, hemoptysis, sputum. CARDIOVASCULAR: Denies chest pain, palpitations, orthopnea, edema, GASTROINTESTINAL: Denies nausea, vomiting, abdominal pain, diarrhea, constipation, melena. : Denies dysuria, frequency, incontinence, hematuria, urinary retention. MUSCULOSKELETAL: denies weakness, positive for left hip joint pain that is chronic, negative for bony pain SKIN: Denies rash, skin lesions, or other NEUROLOGIC: Denies weakness, headache, positive for episode of numbness across her low back earlier this morning that resolved-- associated with pain, negative for change in speech, confusion, seizures, incoordination. PSYCHIATRIC: No concerning psychosocial issues. 12 point review of systems is negative except for those stated above ROS Unobtainable: All systems reviewed & are unremarkable except as noted in HPI and below Patient History <Kym Morris PA-C - Last Filed: 04/07/20 21:16> Medical History Complete uterovaginal prolapse (Acute) Diabetes (Chronic) GERD (gastroesophageal reflux disease) (Acute) History of compression fracture of spine (Acute) History of ectopic (Acute) Hypothyroidism (acquired) (Chronic) Menieres disease (Acute) Osteopenia (Acute) Postmenopausal (Acute) Surgical History History of appendectomy (Acute) History of carpal tunnel repair (Acute) History of kyphoplasty (Acute) History of surgery (Acute) Social History household members: spouse Smoking Status: Never smoker Smoking Status: Never smoker alcohol intake frequency: 0-2 drinks per day Substance Use Type: does not use Exam <Kym Morris PA-C - Last Filed: 04/07/20 21:16> Narrative Exam Narrative: GENERAL: [74] year old patient appears stated age. Well- nourished, well-developed patient, in mild distress. HEAD: Atraumatic. Normocephalic. EYES: Pupils equal round and reactive. Extraocular motions intact. No scleral icterus. No injection or drainage. ENT: Nose without bleeding, purulent drainage. Throat without erythema, tonsillar hypertrophy or exudate. Airway patent. NECK: Trachea midline. Non tender, spinous processes also nontender, normal pain-free range of motion CARDIOVASCULAR: Regular rate and rhythm without murmurs, gallops, or rubs. RESPIRATORY: Clear to auscultation. Breath sounds equal bilaterally. No wheezes, rales, or rhonchi. GASTROINTESTINAL: Abdomen soft, non-tender, nondistended, Negative CVA tenderness. EXTREMITIES: No edema or joint tenderness. Strength is equal bilaterally 4/5, patient is able to stand with support of cane or rail is able to flex at the hip, extend at the hip, perform abduction and adduct abduction at the hip with no increase in pain. BACK: Nontender without deformity or crepitance. No flank tenderness, she has tenderness at the ischial tuberosity on the left which he says is chronic for her. NEURO: AOx3. cranial nerves are intact. No pronator drift. SKIN: No rash or erythema of visible areas Initial Vital Signs Initial Vital Signs: Vital Signs Temperature 98.5 F 04/07/20 10:46 Pulse Rate 81 04/07/20 10:46 Respiratory Rate 19 04/07/20 10:46 Blood Pressure 161/82 H 04/07/20 10:46 Pulse Oximetry 99 04/07/20 10:46 <Mitali eKndall MD - Last Filed: 04/08/20 06:52> Initial Vital Signs Initial Vital Signs: Vital Signs Temperature 98.5 F 04/07/20 10:46 Pulse Rate 81 04/07/20 10:46 Respiratory Rate 19 04/07/20 10:46 Blood Pressure 161/82 H 04/07/20 10:46 Pulse Oximetry 99 04/07/20 10:46 Scores <Kym Morris PA-C - Last Filed: 04/07/20 21:16> GCS Mattie coma scale eye opening: Spontaneous [place] coma scale verbal response: Orientated Mattie coma scale motor response: Obey commands [place] coma scale total score: 15 Course <Kym Morris PA-C - Last Filed: 04/07/20 21:16> Course Course Narrative: On my exam the patient's pain had almost completely resolved, she still has 2/10 pain but describes this as more similar to her chronic pain. Though her pain has improved, I am concerned about the nature of her pain possibly representing either a kidney stone or possibly an occult fracture of her hip /pelvis, though this 2nd seems less likely considering she is able to stand and perform range of motion without an increase in her pain. I have ordered some basic labs including a urinalysis, and a pelvic/hip x-ray. Patient and her family member believe that she may be dealing with the side effects of the steroid she has been taking. Although I am unconvinced that this would explain her pain. She is neurologically intact, have low suspicion for an infectious process or CVA. 11:38 Orders Ordered: ED Orders 04/07/20 11:26 XR pelvis 1-2V Stat 04/07/20 11:30 Complete Blood Count AUTO DIFF Stat Comprehensive Metabolic Panel Stat 04/07/20 12:14 Urine Microscopic Stat Vital Signs Vital signs: Vital Signs - 8 hr 04/07/20 10:46 Temperature 98.5 F Pulse Rate 81 Respiratory Rate 19 Blood Pressure 161/82 H Pulse Oximetry 99 <Mitali Kendall MD - Last Filed: 04/08/20 06:52> Orders Ordered: ED Orders 04/07/20 11:26 XR pelvis 1-2V Stat 04/07/20 11:30 Complete Blood Count AUTO DIFF Stat Comprehensive Metabolic Panel Stat 04/07/20 12:14 Urine Microscopic Stat Vital Signs Vital signs: Vital Signs - 8 hr 04/07/20 10:46 Temperature 98.5 F Pulse Rate 81 Respiratory Rate 19 Blood Pressure 161/82 H Pulse Oximetry 99 MDM - Back Pain/Injury <Kym Morris PA-C - Last Filed: 04/07/20 21:16> Differential Diagnosis Differential diagnosis: Likely lumbar radiculopathy, sciatica, strain of lumbar region, pyelonephritis ( ) and other (UTI, ureterolithiasis, medication reaction) Medical Records Attestation: I reviewed the patient's medical records. Lab Data Attestation: I reviewed the patient's lab results. Lab results narrative: She does have an increased neutrophil count, however this is very likely explained by her use of steroids, as I suspect is her slightly elevated glucose today as compared to her normal which is usually in the 150-200 range based on review of previous labs. Result diagrams: 04/07/20 11:30 04/07/20 11:30 Labs: Lab Results 04/07/20 04/07/20 04/07/20 Range/Units 11:30 11:30 12:00 WBC 16.1 H (4.5-11.0) X10^3/uL RBC 5.17 (4.0-5.2) X10^6/uL Hgb 15.2 (12.0-16.0) g/dL Hct 45.9 (36-46) % MCV 88.8 (80-100) fL MCH 29.4 (26-34) PG MCHC 33.1 (30-36) % RDW 14.2 (11.6-14.8) % Plt Count 414 H (150-400) X10^3/uL Neut % (Auto) 88.4 H (50-75) % Lymph % (Auto) 7.5 L (25-40) % [place] % (Auto) 4.0 (3-14) % Eos % (Auto) 0.0 L (2-4) % Baso % (Auto) 0.1 (0-2) % Neut # (Auto) 11061 H (1160-0143) /uL Lymph # (Auto) 1200 (4961-0715) /uL [place] # (Auto) 600 (0-900) /uL Eos # (Auto) 0 (0-450) /uL Baso # (Auto) 0 (0-100) /uL Sodium 140 (137-145) mmol/L Potassium 4.2 (3.4-5.1) mmol/L Chloride 103 (98-107) mmol/L Carbon Dioxide 24 (22-32) mmol/L BUN 43 H (7-17) mg/dL Creatinine 0.80 (0.52-1.04) mg/dL Estimated GFR > 60.0 (>60) mL/min BUN/Creatinine Ratio 53.8 H (6-22) Glucose 244 H (80-110) mg/dL Calcium 10.4 H (8.4-10.2) mg/dL Total Bilirubin 0.7 (0.2-1.3) mg/dL AST 24 (14-36) IU/L ALT 16 (<35) IU/L Alkaline Phosphatase 83 (38-126) U/L Total Protein 9.1 H (6.3-8.2) g/dL Albumin 4.9 (3.5-5.0) g/dL Globulin 4.2 H (1.7-4.1) g/dL Albumin/Globulin Ratio 1.2 (1.0-2.8) Urine RBC 0-1/hpf (0-5/HPF) Urine WBC 5-10/hpf H (0-5/HPF) Ur Squamous Epith Cells 1-5 /hpf (0-5/HPF) Urine Bacteria Moderate (10-30) H (None) Ur Culture Indicated? Specimen cultured Urine Dip Bedside Urine Glucose Negative Bedside Urine Bilirubin + 1 Bedside Urine Ketone - Negative Urine Specific [place] 1.030 Bedside Urine Occult Blood +/- Bedside Urine pH 5.5 Bedside Urine Protein +/- 15 Bedside Urine Urobilinogen - Negative Bedside Urine Nitrite - Negative Bedside Urine Leukocytes +++ 500 Esterase Imaging Data pelvis XR: Attestation: I personally reviewed and interpreted this imaging study as follows: Radiologist's Impression: [address] [address] XRay Report Signed Patient: Soraida BarryR#: [id number] : 5Acct:[id number] Age/Sex: 74 / FDate of Service: 04/07/20 Loc: ED Accession Number: [id number] Procedure: XR pelvis 1-2V Ordering Provider: Kym Morris P.A-C PROCEDURE: XR PELVIS 1-2V INDICATIONS: pelvis pain, difficulty standing TECHNIQUE: Single view(s) of the pelvis acquired. COMPARISON: [facility], , PELVIS W UNILATERAL HIP RIGHT, 05/08/2008, 13:54. FINDINGS: Bones: No fractures or dislocations. No suspicious bony lesions. Soft tissues: Visualized bowel gas pattern is normal. No suspicious soft tissue calcifications. IMPRESSION: No acute radiographic findings. If there is continued pain, followup exam or additional imaging such as MRI or CT could be performed for further assessment. Dictated by: Jessica Smith M.D. on 04/07/2020 at 11:05 Approved by: Jessica Smith M.D. on 04/07/2020 at 11:05 [facility] Narrative Medical decision making narrative: This is a well-appearing 74-year-old with a cane to aid in walking, with a history of osteopenia, sciatica, hip arthritis, multiple back surgeries, diabetes, SVT who has been taking steroids for 7 days who presents to the emergency department complaining of severe 10/10 back pain early this morning now improved to 2/10 And like her chronic pain now without any pain medicine. considered UTI, ureterolithiasis, nerve compression, sciatic pain, occult fracture, infection, medication reaction. Labs as above does show slightly increased blood sugar levels as well as increased neutrophils however this is likely due to her steroid use. Her urine does not show any evidence blood is not suggestive presence of a stone, positive leukocyte Esteras e however again this is likely due steroids, has been sent for culture. Plan to discharge the patient with PCP follow-up, return with new or worsening symptoms. Emergency return precautions provided, all questions answered. <Mitali Kendall MD - Last Filed: 04/08/20 06:52> Lab Data Labs: Lab Results 04/07/20 04/07/20 04/07/20 Range/Units 11:30 11:30 12:00 WBC 16.1 H (4.5-11.0) X10^3/uL RBC 5.17 (4.0-5.2) X10^6/uL Hgb 15.2 (12.0-16.0) g/dL Hct 45.9 (36-46) % MCV 88.8 (80-100) fL MCH 29.4 (26-34) PG MCHC 33.1 (30-36) % RDW 14.2 (11.6-14.8) % Plt Count 414 H (150-400) X10^3/uL Neut % (Auto) 88.4 H (50-75) % Lymph % (Auto) 7.5 L (25-40) % [place] % (Auto) 4.0 (3-14) % Eos % (Auto) 0.0 L (2-4) % Baso % (Auto) 0.1 (0-2) % Neut # (Auto) 26793 H (7618-6307) /uL Lymph # (Auto) 1200 (9401-3309) /uL [place] # (Auto) 600 (0-900) /uL Eos # (Auto) 0 (0-450) /uL Baso # (Auto) 0 (0-100) /uL Sodium 140 (137-145) mmol/L Potassium 4.2 (3.4-5.1) mmol/L Chloride 103 (98-107) mmol/L Carbon Dioxide 24 (22-32) mmol/L BUN 43 H (7-17) mg/dL Creatinine 0.80 (0.52-1.04) mg/dL Estimated GFR > 60.0 (>60) mL/min BUN/Creatinine Ratio 53.8 H (6-22) Glucose 244 H (80-110) mg/dL Calcium 10.4 H (8.4-10.2) mg/dL Total Bilirubin 0.7 (0.2-1.3) mg/dL AST 24 (14-36) IU/L ALT 16 (<35) IU/L Alkaline Phosphatase 83 (38-126) U/L Total Protein 9.1 H (6.3-8.2) g/dL Albumin 4.9 (3.5-5.0) g/dL Globulin 4.2 H (1.7-4.1) g/dL Albumin/Globulin Ratio 1.2 (1.0-2.8) Urine RBC 0-1/hpf (0-5/HPF) Urine WBC 5-10/hpf H (0-5/HPF) Ur Squamous Epith Cells 1-5 /hpf (0-5/HPF) Urine Bacteria Moderate (10-30) H (None) Ur Culture Indicated? Specimen cultured Urine Dip Bedside Urine Glucose Negative Bedside Urine Bilirubin + 1 Bedside Urine Ketone - Negative Urine Specific [place] 1.030 Bedside Urine Occult Blood +/- Bedside Urine pH 5.5 Bedside Urine Protein +/- 15 Bedside Urine Urobilinogen - Negative Bedside Urine Nitrite - Negative Bedside Urine Leukocytes +++ 500 Esterase Discharge Plan Departure Patient Disposition: Home Clinical Impression: Bony pelvic pain, Acute pain of left hip Discharge Date/Time: 04/07/20 12:38 Instructions: DI for Back Pain With Sciatica, DI for Back Strain or Sprain Activity Restrictions/Additional Instructions: Thank you for allowing us to be part of your care in the emergency department today. After reviewing her labs and the x-ray imaging,tThere is no evidence of an emergent or life threatening illness at this time, but follow up with your doctor in 1-2 days is recommended nonetheless to continue to rule out serious underlying causes of your symptoms. He did have slightly elevated blood sugar today, as well as a slightly elevated white blood cell count but both of these can be explained by the fact that even taking steroids recently. Steroid medications do cause some side effects which you have likely been experiencing including feeling more tired and a little bit of shakiness, it is your choice of course whether you choose to continue the steroid medication, however I do not think that the steroid medication is likely to be the cause of the increased pain you had earlier this morning. Your pain had almost completely improved during her emergency department stay even without administration of pain medicines, I am hopeful that it will not return, however if you have new or worsening symptoms please do not hesitate to seek medical care. Your urine has been sent for culture, but otherwise your labs/imagingresults all returned today. We did not see evidence of a fracture on her x-ray, and you have also been able to stand and ambulate and move your legs without increasing her pain so I think it is very unlikely that you have sustained an ?occult? fracture. I recommend following up with your doctor in the next 1-2 days. Please call the office for an appointment. Please return to the Emergency Department for any worsening or persistent symptoms. Please take medications as directed. Prescriptions: No Action aspirin [Aspir-81] 81 mg tablet,delayed release (DR/EC) 81 mg PO DAILY RF: 0 metformin 500 mg Tablet 500 mg PO TID RF: 0 calcitonin (salmon) 200 unit/actuation [place],Non-Aerosol 1 spray INTRANASAL (ALT) DAILY RF: 0 ibuprofen 200 mg Tablet 400 mg PO BID PRN (Reason: Pain, Mild) RF: 0 Tirosint 50 mcg Capsule 50 mcg PO DAILY RF: 0 lisinopril 2.5 mg Tablet 2.5 mg PO DAILY RF: 0 metoprolol tartrate 25 mg Tablet 25 mg PO TID PRN (Reason: palpitations) RF: 0 Calcium 500 + D 1 tab PO DAILY RF: 0 Referrals: Arun Tavares MD [Primary Care Provider] - <Mitali Kendall MD - Last Filed: 04/08/20 06:52> Cosign ED Attending Cosdouglasature Attestation: I was immediately available in the department for consultation throughout this patient's visit. I agree with documentation as above. Mitali Kendall MD
--- NOTE | 2020-04-07 11:26 | DI.RAD.S_ITS ---
PROCEDURE: XR PELVIS 1-2V INDICATIONS: pelvis pain, difficulty standing TECHNIQUE: Single view(s) of the pelvis acquired. COMPARISON: [facility], , PELVIS W UNILATERAL HIP RIGHT, 05/08/2008, 13:54. FINDINGS: Bones: No fractures or dislocations. No suspicious bony lesions. Soft tissues: Visualized bowel gas pattern is normal. No suspicious soft tissue calcifications. IMPRESSION: No acute radiographic findings. If there is continued pain, followup exam or additional imaging such as MRI or CT could be performed for further assessment. Dictated by: Jessica Smith M.D. on 04/07/2020 at 11:05 Approved by: Jessica Smith M.D. on 04/07/2020 at 11:05
[2020-04-07 11:46] LABS: Add Manual Diff / Slide Review NO; Basophils Absolute Auto 0 /uL (0-100); Basophils Percent Auto 0.1 % (0-2); Eosinophils Absolute Auto 0 /uL (0-450); Hematocrit 45.9 % (36-46); Hemoglobin 15.2 g/dL (12.0-16.0); Lymphocytes Absolute Auto 1200 /uL (1100-4500); Lymphocytes Percent Auto 7.5 % (25-40); Mean Corpuscular HGB Conc 33.1 % (30-36); Mean Corpuscular Hemoglobin 29.4 PG (26-34); Mean Corpuscular Volume 88.8 fL (80-100); Monocytes Absolute Auto 600 /uL (0-900); Neutrophils Absolute Auto 14200 /uL (1500-7000); Neutrophils Percent Auto 88.4 % (50-75); Platelet Count 414 X10^3/uL (150-400); Red Blood Cell Count 5.17 X10^6/uL (4.0-5.2); Red Cell Distribution Width 14.2 % (11.6-14.8); White Blood Cell Count 16.1 X10^3/uL (4.5-11.0)
[2020-04-07 11:59] LABS: Alanine Aminotransferase 16 IU/L (<35); Albumin 4.9 g/dL (3.5-5.0); Albumin Globulin Ratio 1.2 (1.0-2.8); Alkaline Phosphatase 83 U/L (38-126); Aspartate Aminotransferase 24 IU/L (14-36); BUN Creatinine Ratio 53.8 (6-22); Bilirubin Total 0.7 mg/dL (0.2-1.3); Blood Urea Nitrogen 43 mg/dL (7-17); Calcium 10.4 mg/dL (8.4-10.2); Carbon Dioxide 24 mmol/L (22-32); Chloride 103 mmol/L (98-107); Estimated Glomerular Filt Rate > 60.0 mL/min (>60); Globulin 4.2 g/dL (1.7-4.1); Glucose 244 mg/dL (80-110); HEMOLYSIS 25 (0-50); Potassium 4.2 mmol/L (3.4-5.1); Sodium 140 mmol/L (137-145); Total Protein 9.1 g/dL (6.3-8.2)
[2020-04-07 12:24] LABS: Bacteria Urine Moderate (10-30); Culture Indicated Urine Specimen Cultured; RBC Urine 0-1/HPF (0-5/HPF); Squamous Epithelial Cell Urine 1-5 /HPF (0-5/HPF); WBC Urine 5-10/HPF (0-5/HPF)
[2020-04-07 12:37] VITALS: BP 144/72; PULSE 81; RESP 18; O2SAT 99
== END 2020-04-07 12:38 | disposition home or self-care (01) ==
PROVIDERS: Emergency Provider Student in an Organized Health Care Education/Training Program; Family Provider Family Medicine; PCP Family Medicine
DX: R10.2 Pelvic and perineal pain (principal); M25.552 Pain in left hip; M54.42 Lumbago with sciatica, left side
CPT/HCPCS: 72170; 80053; 81003; 81015; 85025; 87077; 87086; 87186; 99282; 99284

== ENCOUNTER 2021-01-05 22:49 | Emergency (ER) | payer MEDICARE, OTHER, SELFPAY ==
--- NOTE | 2021-01-05 22:53 | DI.RAD.S_ITS ---
PROCEDURE: XR CHEST 1V INDICATIONS: chest pain TECHNIQUE: One view of the chest was acquired. COMPARISON: [facility], CR, XR CHEST 1V, 10/21/2018, 20:27. [facility], CR, XR CHEST 1V, 02/25/2019, 15:12. [facility], CR, XR CHEST 1V, 05/09/2019, 15:36. FINDINGS: Surgical changes and devices: Vertebroplasty cement can be seen within the lower thoracic spine. Lungs and pleura: An incomplete inspiratory result is noted, causing a crowded appearance to the lung markings. No focal infiltrates are seen. No pneumothorax or significant pleural effusions are seen. Mediastinum: Mediastinal contours appear normal. Heart size is normal. Atherosclerotic calcification of the aortic arch is noted. Bones and chest wall: Age-appropriate bony degenerative changes are seen. No suspicious bony lesions. Overlying soft tissues appear unremarkable. IMPRESSION: No acute abnormality is seen. Postoperative and degenerative changes are seen. Note: No significant discrepancy from the preliminary report. Dictated by: Daniel Knox M.D. on 01/06/2021 at 8:20 Approved by: Daniel Knox M.D. on 01/06/2021 at 8:20
[2021-01-05 23:00] VITALS: BP 167/100; PULSE 130; RESP 22; TEMP 36.2; O2SAT 98; BMI 27.2
[2021-01-05 23:07] VITALS: BP 152/75; PULSE 124; RESP 20; O2SAT 99
[2021-01-05 23:19] LABS: Add Manual Diff / Slide Review NO; Basophils Absolute Auto 100 /uL (0-100); Basophils Percent Auto 1.3 % (0-2); Eosinophils Absolute Auto 300 /uL (0-450); Eosinophils Percent Auto 2.6 % (2-4); Hematocrit 45.2 % (36-46); Hemoglobin 14.7 g/dL (12.0-16.0); Lymphocytes Absolute Auto 3500 /uL (1100-4500); Lymphocytes Percent Auto 33.2 % (25-40); Mean Corpuscular HGB Conc 32.6 % (30-36); Mean Corpuscular Hemoglobin 28.7 PG (26-34); Mean Corpuscular Volume 88.2 fL (80-100); Monocytes Absolute Auto 700 /uL (0-900); Monocytes Percent Auto 6.4 % (3-14); Neutrophils Absolute Auto 6000 /uL (1500-7000); Neutrophils Percent Auto 56.5 % (50-75); Platelet Count 361 X10^3/uL (150-400); Red Blood Cell Count 5.13 X10^6/uL (4.0-5.2); Red Cell Distribution Width 14.6 % (11.6-14.8); White Blood Cell Count 10.7 X10^3/uL (4.5-11.0)
[2021-01-05 23:25] LABS: INR 1.1 (0.9-1.3); Prothrombin Time 12.1 SECONDS (10.1-12.7)
[2021-01-05 23:28] LABS: PTT Partial Thromboplastin Tim 34 SECONDS (26.4-36.2)
[2021-01-05 23:30] VITALS: BP 117/78; PULSE 122; RESP 24; O2SAT 96
[2021-01-05 23:30] LABS: Alanine Aminotransferase 15 IU/L (<35); Albumin 4.5 g/dL (3.5-5.0); Albumin Globulin Ratio 1.2 (1.0-2.8); Alkaline Phosphatase 98 U/L (38-126); Aspartate Aminotransferase 26 IU/L (14-36); BUN Creatinine Ratio 26.1 (6-22); Bilirubin Total 0.4 mg/dL (0.2-1.3); Blood Urea Nitrogen 24 mg/dL (7-17); Calcium 10.1 mg/dL (8.4-10.2); Carbon Dioxide 24 mmol/L (22-32); Chloride 104 mmol/L (98-107); Creatine Kinase 43 U/L (30-135); Estimated Glomerular Filt Rate 59.5 mL/min (>60); Globulin 3.9 g/dL (1.7-4.1); Glucose 171 mg/dL (80-110); Lipase 308 U/L (23-300); Potassium 4.1 mmol/L (3.4-5.1); Sodium 139 mmol/L (137-145); Total Protein 8.4 g/dL (6.3-8.2)
[2021-01-05 23:33] LABS: HEMOLYSIS 51 (0-50)
[2021-01-05 23:41] LABS: Troponin I < 0.012 ng/mL (0.01-0.034)
--- NOTE | 2021-01-05 23:46 | ED.ARRPALP ---
HPI - Arrhythmia/Palpitations General Chief Complaint: Arrhythmia/Palpitations Stated Complaint: states SVT; racing heart Time Seen by Provider: 01/05/21 23:11 Source: patient Mode of arrival: Ambulatory Limitations: no limitations History of Present Illness HPI narrative: Patient is a 75-year-old female history of SVT is. She states that around fiber 6:00 p.m. she had feelings of chest discomfort and palpitations. She initially took a metoprolol it did not seem to help and then she took a diltiazem it also did not help and she comes to the ED. She does appear to be actually in atrial fibrillation, although she adamantly denies that. She denies any dizziness lightheadedness or shortness of breath. She feels like she is having discomfort that radiates up into her neck as well she can feel a pounding and see it pounding irregularly in her neck. MD complaint: rapid heart beat and palpitations Related Data Home Medications Medication Instructions Recorded Confirmed aspirin 81 mg tablet,delayed 81 mg PO DAILY 03/17/18 05/09/19 release calcitonin (salmon) 1 spray INTRANASAL (ALT) DAILY 02/25/19 05/09/19 ibuprofen 400 mg PO BID PRN 02/25/19 05/09/19 levothyroxine [Tirosint] 50 mcg PO DAILY 02/25/19 05/09/19 metformin 500 mg PO TID 02/25/19 05/09/19 Calcium 500 + D 1 tab PO DAILY 05/09/19 05/09/19 lisinopril 2.5 mg PO DAILY 05/09/19 05/09/19 metoprolol tartrate 25 mg PO TID PRN 05/09/19 05/09/19 Allergies Allergy/AdvReac Type Severity Reaction Status Date / Time sodium chloride for AdvReac Severe Dizziness Verified 01/05/21 23:22 inhalation [From Saline] Review of Systems Review of Systems Narrative: GENERAL: Denies chills, fatigue, malaise, fever, sweats, travel HEENT: Denies sinus pain, ear pain, sore throat, difficulty swallowing, neck pain RESPIRATORY: Denies dyspnea, cough, wheezing, hemoptysis, sputum. CARDIOVASCULAR: See HPI GASTROINTESTINAL: Denies nausea, vomiting, abdominal pain, diarrhea, constipation, melena. : Denies dysuria, frequency, incontinence, hematuria, urinary retention, flank pain. MUSCULOSKELETAL: Denies weakness, joint pain, or bony pain SKIN: No rash, no erythema, no pruritus NEUROLOGIC: Denies weakness, dizziness, headache, numbness, change in speech, confusion PSYCHIATRIC: No concerning psychosocial issues. 12 point review of systems is negative except for those stated above and HPI Patient History Medical History Complete uterovaginal prolapse Diabetes GERD (gastroesophageal reflux disease) History of compression fracture of spine History of ectopic Hypothyroidism (acquired) Menieres disease Osteopenia Postmenopausal Surgical History History of appendectomy History of carpal tunnel repair History of kyphoplasty History of surgery Social History household members: spouse Smoking Status: Never smoker Smoking Status: Never smoker alcohol intake frequency: 0-2 drinks per day Substance Use Type: does not use Exam Initial Vital Signs Initial Vital Signs: Vital Signs Temperature 97.2 F L 01/05/21 23:00 Pulse Rate 130 H 01/05/21 23:00 Respiratory Rate 22 01/05/21 23:00 Blood Pressure 167/100 H 01/05/21 23:00 Pulse Oximetry 98 01/05/21 23:00 GENERAL: Alert pleasant 75-year-old female and in no acute distress. HEENT: Head atraumatic,EOMI, pupils reactive, face symmetric, moist mucous membranes CARDIOVASCULAR: Irregularly irregular RESPIRATORY: Breath sounds equal bilaterally, no wheezes rales or rhonchi. ABDOMEN: Soft, nontender. Normoactive bowel sounds all 4 quadrants. No guarding or rebound. EXTREMITIES: Normal range of motion, no clubbing or edema. Neurovascularly intact NEUROLOGICAL: Alert and oriented x4.Normal gait and speech. SKIN: Warm, dry, no laceration, no petechiae, no rashes or lesions. Course Orders Ordered: ED Orders 01/05/21 22:53 XR chest 1V Stat EKG-12 Lead Stat 01/05/21 23:05 Complete Blood Count AUTO DIFF Stat Comprehensive Metabolic Panel Stat Lipase Stat Partial Thromboplastin Time Stat Prothrombin Time INR Stat Troponin & CK Cardiac Panel Stat 01/06/21 EKG-12 Lead Stat Discontinued Medications Diltiazem HCl (Diltiazem 5 Mg/Ml Sdv) 10 mg IV NOW ONE Stop: 01/06/21 00:16 Last Admin: 01/06/21 00:24 Dose: 10 mg Documented by: TRISTEN Vital Signs Vital signs: Vital Signs - 8 hr 01/05/21 23:00 01/05/21 23:07 01/05/21 23:30 Temperature 97.2 F L Pulse Rate 130 H 124 H 122 H Respiratory Rate 22 20 24 Blood Pressure 167/100 H 152/75 H 117/78 Pulse Oximetry 98 99 96 01/06/21 00:00 01/06/21 00:30 01/06/21 00:52 Temperature Pulse Rate 122 H 61 60 Respiratory Rate 19 19 Blood Pressure 121/73 108/55 L Pulse Oximetry 95 94 MDM - Arrhythmia/Palpitations Lab Data Attestation: I reviewed the patient's lab results. Result diagrams: 01/05/21 23:05 01/05/21 23:05 Labs: Lab Results 01/05/21 01/05/21 01/05/21 Range/Units 23:05 23:05 23:05 WBC 10.7 (4.5-11.0) X10^3/uL RBC 5.13 (4.0-5.2) X10^6/uL Hgb 14.7 (12.0-16.0) g/dL Hct 45.2 (36-46) % MCV 88.2 (80-100) fL MCH 28.7 (26-34) PG MCHC 32.6 (30-36) % RDW 14.6 (11.6-14.8) % Plt Count 361 (150-400) X10^3/uL Neut % (Auto) 56.5 (50-75) % Lymph % (Auto) 33.2 (25-40) % [place] % (Auto) 6.4 (3-14) % Eos % (Auto) 2.6 (2-4) % Baso % (Auto) 1.3 (0-2) % Neut # (Auto) 6000 (5396-4150) /uL Lymph # (Auto) 3500 (7046-5268) /uL [place] # (Auto) 700 (0-900) /uL Eos # (Auto) 300 (0-450) /uL Baso # (Auto) 100 (0-100) /uL PT 12.1 (10.1-12.7) SECONDS INR 1.1 (0.9-1.3) APTT 34 (26.4-36.2) SECONDS Sodium 139 (137-145) mmol/L Potassium 4.1 (3.4-5.1) mmol/L Chloride 104 (98-107) mmol/L Carbon Dioxide 24 (22-32) mmol/L BUN 24 H (7-17) mg/dL Creatinine 0.92 (0.52-1.04) mg/dL Estimated GFR 59.5 L (>60) mL/min BUN/Creatinine Ratio 26.1 H (6-22) Glucose 171 H (80-110) mg/dL Calcium 10.1 (8.4-10.2) mg/dL Total Bilirubin 0.4 (0.2-1.3) mg/dL AST 26 (14-36) IU/L ALT 15 (<35) IU/L Alkaline Phosphatase 98 (38-126) U/L Total Creatine Kinase 43 (30-135) U/L CK-MB (CK-2) TNP CK-MB (CK-2) Rel Index TNP Troponin I < 0.012 (0.01-0.034) ng/mL Total Protein 8.4 H (6.3-8.2) g/dL Albumin 4.5 (3.5-5.0) g/dL Globulin 3.9 (1.7-4.1) g/dL Albumin/Globulin Ratio 1.2 (1.0-2.8) Lipase 308 H (23-300) U/L Imaging Data Chest x-ray: Radiologist's Impresson: Preliminary report: No acute finding ECG Data Attestation: I personally reviewed and interpreted this ECG as follows: Prior ECG tracings: available for review Interpretation: Irregular no P-waves atrial fibrillation rate 127 Normal sinus rhythm rate 64 p.r. interval 160 QRS 82 QTC of [address] changes or T-wave inversions MDM Narrative Medical decision making narrative: Patient overall appears well she is given 10 mg of diltiazem and converted to sinus rhythm. Her symptoms completely resolve. Patient is clearly not in SVT at this time. Blood work is overall reassuring. I recommend she follow up with primary care possibly Cardiology. Discharge Plan Departure Patient Disposition: Home Clinical Impression: Atrial fibrillation Instructions: DI for Atrial Fibrillation Activity Restrictions/Additional Instructions: *You have been diagnosed with atrial fibrillation *What to do: It appears as though you are in an abnormal rhythm likely atrial fibrillation. *Continue to take medications as directed *Follow up with your primary care provider in 2-3 days *Return to ER if you should have chest pain dizziness lightheadedness palpitations or any new, worsening or concerning symptoms Prescriptions: No Action aspirin [Aspir-81] 81 mg tablet,delayed release (DR/EC) 81 mg PO DAILY RF: 0 metformin 500 mg Tablet 500 mg PO TID RF: 0 calcitonin (salmon) 200 unit/actuation [place],Non-Aerosol 1 spray INTRANASAL (ALT) DAILY RF: 0 ibuprofen 200 mg Tablet 400 mg PO BID PRN (Reason: Pain, Mild) RF: 0 Tirosint 50 mcg Capsule 50 mcg PO DAILY RF: 0 lisinopril 2.5 mg Tablet 2.5 mg PO DAILY RF: 0 metoprolol tartrate 25 mg Tablet 25 mg PO TID PRN (Reason: palpitations) RF: 0 Calcium 500 + D 1 tab PO DAILY RF: 0 Referrals: Arun Tavares MD [Primary Care Provider] -
[2021-01-06] VITALS: BP 121/73; PULSE 122; RESP 19; O2SAT 95
[2021-01-06] MEDS: dilTIAZem 5 MG/ML SDV 10 MG IV (00:24)
[2021-01-06 00:30] VITALS: BP 108/55; PULSE 61; RESP 19; O2SAT 94
[2021-01-06 00:52] VITALS: PULSE 60
== END 2021-01-06 00:52 | disposition home or self-care (01) ==
PROVIDERS: Emergency Provider Emergency Medicine; Family Provider Family Medicine; PCP Family Medicine
DX: I48.91 Unspecified atrial fibrillation (principal)
CPT/HCPCS: 36415; 71045; 80053; 82550; 83690; 84484; 85025; 85610; 85730; 93005; 96374; 99284

== ENCOUNTER → 2021-02-21 11:15 | Outpatient (CLI) | payer MEDICARE, OTHER, SELFPAY | PROVIDERS: Family Provider Family Medicine; PCP Family Medicine; Referring Provider Family Medicine; Visit Provider Family Medicine | DX: M81.0 Age-related osteoporosis without current pathological fracture (principal); Z78.0 Asymptomatic menopausal state; E07.9 Disorder of thyroid, unspecified; E11.9 Type 2 diabetes mellitus without complications | CPT/HCPCS: 77080; 77081 ==

== ENCOUNTER 2021-06-23 01:52 | Emergency (ER) | payer MEDICARE, OTHER, SELFPAY ==
--- NOTE | 2021-06-23 01:55 | DI.RAD.S_ITS ---
PROCEDURE: XR CHEST 1V INDICATIONS: chest pain TECHNIQUE: One view of the chest was acquired. COMPARISON: [facility], CR, XR CHEST 1V, 01/06/2021, 0:06. FINDINGS: Surgical changes and devices: None. Lungs and pleura: Lungs are clear. No pleural effusions or pneumothorax. Mediastinum: Mediastinal contours appear normal. Heart size is normal. Atherosclerotic vascular calcification noted in the aortic arch. Bones and chest wall: No suspicious bony lesions. Overlying soft tissues appear unremarkable. Thoracolumbar vertebroplasties noted. Convex right thoracolumbar scoliosis. IMPRESSION: No acute cardiopulmonary findings Note: Final report is concordant with preliminary interpretation by [facility], [employer] Approved by: Aníbal Louise M.D. on 06/23/2021 at 7:09
[2021-06-23 02:03] VITALS: BP 135/60; PULSE 120; RESP 15; TEMP 36.4; O2SAT 98; BMI 27.2
--- NOTE | 2021-06-23 02:07 | ED_ITS ---
HPI - Arrhythmia/Palpitations General Chief Complaint: Arrhythmia/Palpitations Stated Complaint: svt, fast heart rate Time Seen by Provider: 06/23/21 02:03 History of Present Illness HPI narrative: Patient is a 75-year-old female history of SVT, possible atrial fibrillation presenting today with heart palpitations. She said started around 3:00 a.m. this afternoon she has had multiple episodes this week which is abnormal. Previously she has been able to take the D medicine or the M medicine. They frequently say diltiazem for the D medicine but they do not have it written down. Today she took the D medicine it did not get better 2 hours later she took metoprolol 2 hours after that she took another dose of metoprolol she tried going to sleep in it still just feels like she is pounding. She was seen evaluated here previously in December of 2020 presenting with the same thing. She self converted with 1 dose of IV diltiazem. 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 She is not on any anti coagulation. Related Data Home Medications Medication Instructions Recorded Confirmed aspirin 81 mg tablet,delayed 81 mg PO DAILY 03/17/18 05/09/19 release (Aspir-) calcitonin (salmon) 200 1 spray INTRANASAL (ALT) DAILY 02/25/19 05/09/19 unit/actuation nasal spray ibuprofen 200 mg tablet 400 mg PO BID PRN 02/25/19 05/09/19 levothyroxine 50 mcg capsule 50 mcg PO DAILY 02/25/19 05/09/19 (Tirosint) metformin 500 mg tablet 500 mg PO TID 02/25/19 05/09/19 Calcium 500 + D 1 tab PO DAILY 05/09/19 05/09/19 lisinopril 2.5 mg tablet 2.5 mg PO DAILY 05/09/19 05/09/19 metoprolol tartrate 25 mg tablet 25 mg PO TID PRN 05/09/19 05/09/19 Allergies Allergy/AdvReac Type Severity Reaction Status Date / Time sodium chloride for AdvReac Severe Dizziness Verified 01/05/21 23:22 inhalation [From Saline] Review of Systems Review of Systems Narrative: GENERAL: Denies chills, fatigue, malaise, fever, sweats, travel HEENT: Denies sinus pain, ear pain, sore throat, difficulty swallowing, neck pain RESPIRATORY: Denies dyspnea, cough, wheezing, hemoptysis, sputum. CARDIOVASCULAR: See HPI GASTROINTESTINAL: Denies nausea, vomiting, abdominal pain, diarrhea, constipation, melena. : Denies dysuria, frequency, incontinence, hematuria, urinary retention, flank pain. MUSCULOSKELETAL: Denies weakness, joint pain, or bony pain SKIN: No rash, no erythema, no pruritus NEUROLOGIC: Denies weakness, dizziness, headache, numbness, change in speech, co nfusion PSYCHIATRIC: No concerning psychosocial issues. 12 point review of systems is negative except for those stated above and HPI Patient History Medical History (Updated 06/23/21 @ 02:47 by Kay Carson DO) Complete uterovaginal prolapse Diabetes GERD (gastroesophageal reflux disease) History of compression fracture of spine History of ectopic Hypothyroidism (acquired) Menieres disease Osteopenia Postmenopausal Surgical History History of appendectomy History of carpal tunnel repair History of kyphoplasty History of surgery Social History household members: spouse Smoking Status: Never smoker Smoking Status: Never smoker alcohol intake frequency: 0-2 drinks per day Substance Use Type: does not use Exam Initial Vital Signs Initial Vital Signs: Vital Signs Temperature 97.6 F 06/23/21 02:03 Pulse Rate 120 H 06/23/21 02:03 Respiratory Rate 15 06/23/21 02:03 Blood Pressure 135/60 06/23/21 02:03 Pulse Oximetry 98 06/23/21 02:03 GENERAL: Alert anxious 75-year-old female HEENT: Head atraumatic,EOMI, pupils reactive, face symmetric, moist mucous membranes CARDIOVASCULAR: Regular tachycardic without murmur RESPIRATORY: Breath sounds equal bilaterally, no wheezes rales or rhonchi. ABDOMEN: Soft, nontender. Normoactive bowel sounds all 4 quadrants. No guarding or rebound. EXTREMITIES: Normal range of motion, no clubbing or edema. Neurovascularly intact NEUROLOGICAL: Alert and oriented x4.Normal gait and speech. SKIN: Warm, dry, no laceration, no petechiae, no rashes or lesions. Course Orders Ordered: ED Orders 06/23/21 EKG-12 Lead Stat 06/23/21 01:55 XR chest 1V Stat EKG-12 Lead Stat 06/23/21 02:04 Complete Blood Count AUTO DIFF Stat Comprehensive Metabolic Panel Stat Lipase Stat Troponin & CK Cardiac Panel Stat Discontinued Medications Diltiazem HCl (Diltiazem 5 Mg/Ml Sdv) 10 mg IV NOW ONE Stop: 06/23/21 02:13 Last Admin: 06/23/21 02:22 Dose: 10 mg Documented by: Vital Signs Vital signs: Vital Signs - 8 hr 06/23/21 02:03 06/23/21 02:22 06/23/21 02:29 Temperature 97.6 F Pulse Rate 120 H 118 H 55 L Respiratory Rate 15 27 H Blood Pressure 135/60 111/78 Pulse Oximetry 98 99 06/23/21 02:30 06/23/21 03:00 06/23/21 03:06 Temperature Pulse Rate 54 L 59 L 60 Respiratory Rate 25 H 24 22 Blood Pressure 103/51 L 110/56 L Pulse Oximetry 99 98 96 MDM - Arrhythmia/Palpitations Lab Data Result diagrams: 06/23/21 02:04 06/23/21 02:04 Labs: Lab Results 06/23/21 06/23/21 Range/Units 02:04 02:04 WBC 9.9 (4.5-11.0) X10^3/uL RBC 5.21 H (4.0-5.2) X10^6/uL Hgb 15.0 (12.0-16.0) g/dL Hct 46.0 (36-46) % MCV 88.3 (80-100) fL MCH 28.8 (26-34) PG MCHC 32.6 (30-36) % RDW 14.8 (11.6-14.8) % Plt Count 359 (150-400) X10^3/uL Neut % (Auto) 47.5 L (50-75) % Lymph % (Auto) 41.0 H (25-40) % [place] % (Auto) 7.1 (3-14) % Eos % (Auto) 3.0 (2-4) % Baso % (Auto) 1.4 (0-2) % Neut # (Auto) 4700 (7624-1774) /uL Lymph # (Auto) 4100 (4074-2925) /uL [place] # (Auto) 700 (0-900) /uL Eos # (Auto) 300 (0-450) /uL Baso # (Auto) 100 (0-100) /uL Sodium 138 (137-145) mmol/L Potassium 3.9 (3.4-5.1) mmol/L Chloride 100 (98-107) mmol/L Carbon Dioxide 26 (22-32) mmol/L BUN 24 H (7-17) mg/dL Creatinine 0.95 (0.52-1.04) mg/dL Estimated GFR 57.3 L (>60) mL/min BUN/Creatinine Ratio 25.3 H (6-22) Glucose 171 H (80-110) mg/dL Calcium 10.0 (8.4-10.2) mg/dL Total Bilirubin 0.4 (0.2-1.3) mg/dL AST 26 (14-36) IU/L ALT 16 (<35) IU/L Alkaline Phosphatase 103 (38-126) U/L Total Creatine Kinase 48 (30-135) U/L CK-MB (CK-2) TNP CK-MB (CK-2) Rel Index TNP Troponin I < 0.012 (0.01-0.034) ng/mL Total Protein 8.7 H (6.3-8.2) g/dL Albumin 4.8 (3.5-5.0) g/dL Globulin 3.9 (1.7-4.1) g/dL Albumin/Globulin Ratio 1.2 (1.0-2.8) Lipase 341 H (23-300) U/L ECG Data Interpretation: Junctional rhythm rate [address] changes similar to previous EKG December 2020 EKG 2. Sinus rhythm rate 56 DC interval 188 QRS [address] changes MDM Narrative Medical decision making narrative: The patient is a bit anxious blood work is overall reassuring. She easily self converted in a very short period of time after diltiazem 10 mg. She overall is feeling significantly better. At this time I recommend she follow up with her aircraft pneudraulic systems mechanic. Discharge Plan Departure Patient Disposition: Home Clinical Impression: AV junctional rhythm Instructions: Arrhythmias Activity Restrictions/Additional Instructions: *You have been diagnosed with arrhythmia *What to do: I am happy that you easily converted back to normal sinus rhythm and that you feel better. Please be sure to follow-up with her aircraft pneudraulic systems mechanic. He may need a Holter monitor to assess how frequently you are having arrhythmias *Continue to take medications as directed *Follow up with your primary care provider in 2-3 days *Return to ER if you should have increasing palpitations, no relief with medication, dizziness, chest pain or any new, worsening or concerning symptoms Prescriptions: No Action aspirin [Aspir-81] 81 mg tablet,delayed release (DR/EC) 81 mg PO DAILY RF: 0 metformin 500 mg Tablet 500 mg PO TID RF: 0 calcitonin (salmon) 200 unit/actuation [place],Non-Aerosol 1 spray INTRANASAL (ALT) DAILY RF: 0 ibuprofen 200 mg Tablet 400 mg PO BID PRN (Reason: Pain, Mild) RF: 0 Tirosint 50 mcg Capsule 50 mcg PO DAILY RF: 0 lisinopril 2.5 mg Tablet 2.5 mg PO DAILY RF: 0 metoprolol tartrate 25 mg Tablet 25 mg PO TID PRN (Reason: palpitations) RF: 0 Calcium 500 + D 1 tab PO DAILY RF: 0 Referrals: Arun Tavares MD [Primary Care Provider] -
--- NOTE | 2021-06-23 02:17 | PC.NURSE ---
patient has had fast/rapid heart rate since 1529. 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 Patient states she has had three similar epiosdes in the last week. Patient reports some chest heaviness, left arm pain.
[2021-06-23 02:21] LABS: Add Manual Diff / Slide Review NO; Basophils Absolute Auto 100 /uL (0-100); Basophils Percent Auto 1.4 % (0-2); Eosinophils Absolute Auto 300 /uL (0-450); Lymphocytes Absolute Auto 4100 /uL (1100-4500); Mean Corpuscular HGB Conc 32.6 % (30-36); Mean Corpuscular Hemoglobin 28.8 PG (26-34); Mean Corpuscular Volume 88.3 fL (80-100); Monocytes Absolute Auto 700 /uL (0-900); Monocytes Percent Auto 7.1 % (3-14); Neutrophils Absolute Auto 4700 /uL (1500-7000); Neutrophils Percent Auto 47.5 % (50-75); Platelet Count 359 X10^3/uL (150-400); Red Blood Cell Count 5.21 X10^6/uL (4.0-5.2); Red Cell Distribution Width 14.8 % (11.6-14.8); White Blood Cell Count 9.9 X10^3/uL (4.5-11.0)
[2021-06-23 02:22] VITALS: BP 111/78; PULSE 118
[2021-06-23] MEDS: dilTIAZem 5 MG/ML SDV 10 MG IV (02:22)
[2021-06-23 02:28] LABS: Alanine Aminotransferase 16 IU/L (<35); Albumin 4.8 g/dL (3.5-5.0); Albumin Globulin Ratio 1.2 (1.0-2.8); Alkaline Phosphatase 103 U/L (38-126); Aspartate Aminotransferase 26 IU/L (14-36); BUN Creatinine Ratio 25.3 (6-22); Bilirubin Total 0.4 mg/dL (0.2-1.3); Blood Urea Nitrogen 24 mg/dL (7-17); Carbon Dioxide 26 mmol/L (22-32); Chloride 100 mmol/L (98-107); Creatine Kinase 48 U/L (30-135); Estimated Glomerular Filt Rate 57.3 mL/min (>60); Globulin 3.9 g/dL (1.7-4.1); Glucose 171 mg/dL (80-110); HEMOLYSIS < 15 (0-50); Lipase 341 U/L (23-300); Potassium 3.9 mmol/L (3.4-5.1); Sodium 138 mmol/L (137-145); Total Protein 8.7 g/dL (6.3-8.2)
[2021-06-23 02:29] VITALS: PULSE 55; RESP 27; O2SAT 99
[2021-06-23 02:30] VITALS: BP 103/51; PULSE 54; RESP 25; O2SAT 99
[2021-06-23 02:40] LABS: Troponin I < 0.012 ng/mL (0.01-0.034)
[2021-06-23 03:00] VITALS: PULSE 59; RESP 24; O2SAT 98
[2021-06-23 03:06] VITALS: BP 110/56; PULSE 60; RESP 22; O2SAT 96
== END 2021-06-23 03:18 | disposition home or self-care (01) ==
PROVIDERS: Emergency Provider Emergency Medicine; Family Provider Family Medicine; PCP Family Medicine
DX: I49.8 Other specified cardiac arrhythmias (principal)
CPT/HCPCS: 36415; 71045; 80053; 82550; 83690; 84484; 85025; 93005; 96374; 99284

== ENCOUNTER → 2021-10-14 12:38 | Outpatient (CLI) | payer MEDICARE, OTHER, SELFPAY ==
--- NOTE | 2021-10-14 | DI.RAD.S_ITS ---
PROCEDURE: XR THORACIC SPINE 3V INDICATIONS: Dorsalgia, unspecified TECHNIQUE: 2 views of the thoracic spine were acquired. COMPARISON: [facility], , THORACIC SPINE 3 VIEWS, 03/03/2016, 10:39. FINDINGS: Bones: No acute, displaced fracture or retropulsion. Diffuse osteopenia with T6 compression deformity. Redemonstrated evidence of vertebroplasty at T10 and T12. 12 pairs of ribs are noted, and appear intact where visualized. Soft tissues: No paravertebral stripe thickening. IMPRESSION: No significant interval change. Dictated by: Ted Jacobo M.D. on 10/14/2021 at 14:04 Approved by: Ted Jacobo M.D. on 10/14/2021 at 14:09
== END ==
PROVIDERS: Family Provider Family Medicine; PCP Family Medicine; Referring Provider Family Medicine; Visit Provider Family Medicine
DX: M54.9 Dorsalgia, unspecified (principal)
CPT/HCPCS: 72082

== ENCOUNTER 2021-11-11 09:31 | Emergency (ER) | payer MEDICARE, OTHER, SELFPAY ==
[2021-11-11 09:40] VITALS: BP 180/81; PULSE 104; RESP 18; TEMP 36.7; O2SAT 99; BMI 28.3
--- NOTE | 2021-11-11 10:11 | ED.BACK ---
HPI - Back Pain/Injury General Chief Complaint: Back Pain/Injury Stated Complaint: Thinks broken back. Has osteoporosis Time Seen by Provider: 11/11/21 10:10 Source: patient and family Mode of arrival: Ambulatory Limitations: no limitations Related Data Home Medications Medication Instructions Recorded Confirmed aspirin 81 mg tablet,delayed 81 mg PO DAILY 03/17/18 05/09/19 release (Aspir-) calcitonin (salmon) 200 1 spray INTRANASAL (ALT) DAILY 02/25/19 05/09/19 unit/actuation nasal spray ibuprofen 200 mg tablet 400 mg PO BID PRN 02/25/19 05/09/19 levothyroxine 50 mcg capsule 50 mcg PO DAILY 02/25/19 05/09/19 (Tirosint) metformin 500 mg tablet 500 mg PO TID 02/25/19 05/09/19 Calcium 500 + D 1 tab PO DAILY 05/09/19 05/09/19 lisinopril 2.5 mg tablet 2.5 mg PO DAILY 05/09/19 05/09/19 metoprolol tartrate 25 mg tablet 25 mg PO TID PRN 05/09/19 05/09/19 Allergies Allergy/AdvReac Type Severity Reaction Status Date / Time sodium chloride for AdvReac Severe Dizziness Verified 01/05/21 23:22 inhalation [From Saline] Review of Systems Review of Systems ROS Unobtainable: All systems reviewed & are unremarkable except as noted in HPI and below Patient History Medical History (Updated 11/11/21 @ 10:28 by Jacquelyn Kwong DO) Complete uterovaginal prolapse Diabetes GERD (gastroesophageal reflux disease) History of compression fracture of spine History of ectopic Hypothyroidism (acquired) Menieres disease Osteopenia Postmenopausal Surgical History History of appendectomy History of carpal tunnel repair History of kyphoplasty History of surgery Social History household members: spouse Smoking Status: Never smoker Smoking Status: Never smoker alcohol intake frequency: 0-2 drinks per day Substance Use Type: does not use Exam Initial Vital Signs Initial Vital Signs: Vital Signs Temperature 98.1 F 11/11/21 09:40 Pulse Rate 104 H 11/11/21 09:40 Respiratory Rate 18 11/11/21 09:40 Blood Pressure 180/81 H 11/11/21 09:40 Pulse Oximetry 99 11/11/21 09:40 Course Vital Signs Vital signs: Vital Signs - 8 hr 11/11/21 09:40 Temperature 98.1 F Pulse Rate 104 H Respiratory Rate 18 Blood Pressure 180/81 H Pulse Oximetry 99 Discharge Plan Departure Patient Disposition: Left Without Being Seen Clinical Impression: Patient left without being seen Prescriptions: No Action aspirin [Aspir-81] 81 mg tablet,delayed release (DR/EC) 81 mg PO DAILY 0RF metformin 500 mg Tablet 500 mg PO TID 0RF Label Comments: patient states takes twice a day. 05/09/19 Rx Instructions: with meals calcitonin (salmon) 200 unit/actuation [place],Non-Aerosol 1 spray INTRANASAL (ALT) DAILY 0RF ibuprofen 200 mg Tablet 400 mg PO BID PRN (Reason: Pain, Mild) 0RF Tirosint 50 mcg Capsule 50 mcg PO DAILY 0RF lisinopril 2.5 mg Tablet 2.5 mg PO DAILY 0RF metoprolol tartrate 25 mg Tablet 25 mg PO TID PRN (Reason: palpitations) 0RF Calcium 500 + D 1 tab PO DAILY 0RF Referrals: Arun Tavares MD [Primary Care Provider] -
--- NOTE | 2021-11-11 10:29 | PC.NURSE ---
No neuro deficit. Pt states she does not want to wait, wants to go home, informed that she is next up to be seen but pt wants to leave. < 60 min wait. Encouraged to return.
== END 2021-11-11 10:25 | disposition left against medical advice (07) ==
PROVIDERS: Emergency Provider Emergency Medicine; Family Provider Family Medicine; PCP Family Medicine
DX: M54.9 Dorsalgia, unspecified (principal)
CPT/HCPCS: 99281

== ENCOUNTER → 2021-11-22 17:58 | Outpatient (CLI) | payer MEDICARE, OTHER, SELFPAY ==
--- NOTE | 2021-11-22 | DI.MRI.S_ITS ---
PROCEDURE: MR THORACIC SPINE WO CON INDICATIONS: Wedge compression fracture of T11-T12 vertebra TECHNIQUE: Noncontrast sagittal T1 spine echo and T2 fast spin echo, sagittal STIR, axial T1 and T2 fast spin echo through the thoracic spine. COMPARISON: [facility], CR, XR THORACIC SPINE 2 VIEWS, 11/20/2021, 15:45. FINDINGS: Image quality: Excellent. Alignment and Curvature: There is normal bony alignment. Bone Marrow: Multiple compression fractures are noted throughout the thoracic spine. Evidence of vertebroplasty noted at T10, T12, L1, L2, L3. T9 vertebral body has appropriate height and marrow signal. There is 50% wedge-shaped anterior height loss at T 7 and T8 without retropulsed fracture fragment. Wedge-shaped compression fractures noted at T5 and T6 as well without marrow edema. Spinal Cord: Visualized spinal cord is normal in size and signal. Paraspinous Soft Tissues: No paravertebral masses. Miscellaneous: Mild central stenosis noted at T10-11. No cord compression. IMPRESSION: 1. Acute to subacute compression fractures at T5 and T6 would be amendable to percutaneous vertebroplasty treatment if clinically appropriate. 2. Old untreated compression fractures at T5, T6 and T11 without marrow edema. Vertebroplasty treatment noted at T10, T12, L1 through L3. Approved by: Aníbal Louise M.D. on 11/23/2021 at 23:31
== END ==
PROVIDERS: Family Provider Family Medicine; PCP Family Medicine; Referring Provider Physician Assistant Surgical; Visit Provider Physician Assistant Surgical
DX: S22.050A Wedge compression fracture of T5-T6 vertebra, initial encounter for closed fracture (principal); S22.080S Wedge compression fracture of T11-T12 vertebra, sequela
CPT/HCPCS: 72146

== ENCOUNTER 2022-09-26 09:28 | Emergency (ER) | payer MEDICARE, OTHER, SELFPAY ==
[2022-09-26] VITALS (29 sets, daily range): BP systolic 149–205; BP diastolic 59–97; PULSE 67–111; RESP 20–60; TEMP 36.9; O2SAT 95–99; BMI 25.2
--- NOTE | 2022-09-26 09:40 | DI.RAD.S_ITS ---
PROCEDURE: XR CHEST 1V INDICATIONS: chest pain TECHNIQUE: One view of the chest was acquired. COMPARISON: [facility], CR, XR CHEST 1V, 06/23/2021, 2:15. FINDINGS: Surgical changes and devices: Numerous thoracic and lumbar compression fractures have been treated with percutaneous cement. Lungs and pleura: Lungs are clear. No pleural effusions or pneumothorax. Mediastinum: Mediastinal contours appear normal. Heart size is normal. Bones and chest wall: No suspicious bony lesions. Overlying soft tissues appear unremarkable. IMPRESSION: No evidence acute pulmonary process. Dictated by: Chris Raymond M.D. on 09/26/2022 at 10:03 Approved by: Chris Raymond M.D. on 09/26/2022 at 10:03
[2022-09-26 09:47] LABS: Add Manual Diff / Slide Review NO; Basophils Absolute Auto 100 /uL (0-100); Basophils Percent Auto 1.2 % (0-2); Eosinophils Absolute Auto 300 /uL (0-450); Eosinophils Percent Auto 4.9 % (2-4); Hematocrit 40.9 % (36-46); Hemoglobin 13.7 g/dL (12.0-16.0); Lymphocytes Absolute Auto 2100 /uL (1100-4500); Lymphocytes Percent Auto 39.3 % (25-40); Mean Corpuscular HGB Conc 33.4 % (30-36); Mean Corpuscular Hemoglobin 29.1 PG (26-34); Monocytes Absolute Auto 400 /uL (0-900); Monocytes Percent Auto 7.2 % (3-14); Neutrophils Absolute Auto 2500 /uL (1500-7000); Neutrophils Percent Auto 47.4 % (50-75); Platelet Count 289 X10^3/uL (150-400); Red Cell Distribution Width 13.8 % (11.6-14.8); White Blood Cell Count 5.4 X10^3/uL (4.5-11.0)
[2022-09-26 09:52] LABS: INR 1.1 (0.9-1.3); Prothrombin Time 12.4 SECONDS (10.1-12.7)
[2022-09-26 09:54] LABS: PTT Partial Thromboplastin Tim 30 SECONDS (26-36)
[2022-09-26 09:56] LABS: Alanine Aminotransferase 15 IU/L (<35); Albumin 4.5 g/dL (3.5-5.0); Albumin Globulin Ratio 1.2 (1.0-2.8); Alkaline Phosphatase 87 U/L (38-126); Aspartate Aminotransferase 19 IU/L (14-36); BUN Creatinine Ratio 24.1 (6-22); Bilirubin Total 0.7 mg/dL (0.2-1.3); Blood Urea Nitrogen 21 mg/dL (7-17); Calcium 9.3 mg/dL (8.4-10.2); Carbon Dioxide 25 mmol/L (22-32); Chloride 98 mmol/L (98-107); Creatine Kinase 38 U/L (30-135); Estimated Glomerular Filt Rate > 60 mL/min (>60); Globulin 3.7 g/dL (1.7-4.1); Glucose 246 mg/dL (80-110); HEMOLYSIS < 15 (0-50); Lipase 237 U/L (23-300); Magnesium 1.5 mg/dL (1.6-2.3); Potassium 3.6 mmol/L (3.4-5.1); Sodium 136 mmol/L (137-145); Total Protein 8.2 g/dL (6.3-8.2)
[2022-09-26 10:07] LABS: Troponin I < 0.012 ng/mL (0.01-0.034)
--- NOTE | 2022-09-26 10:13 | PC.NURSE ---
Pt arrives with . reports CP overnight and this morning. h/o SVT and took an extra diltiazem at 3am when she was having palpitations and her HR was 150's. AAOx3, states her CP is resolving however having radiation to low back. Eyes are tightly shut in pain and encouraging pt to breathe. HR 81 at this time from 110-115 at triage. BP 173/77. Appears more comfortable at this time.
[2022-09-26 11:00] LABS: Bacteria Urine Many (>30); Culture Indicated Urine Specimen Cultured; RBC Urine 1-5/HPF (0-5/HPF); Squamous Epithelial Cell Urine 1-5 /HPF (0-5/HPF); WBC Urine 30-100/HPF (0-5/HPF)
--- NOTE | 2022-09-26 11:26 | ED.CHESTPAIN ---
HPI - Chest Pain General Chief Complaint: Chest Pain Stated Complaint: chest pain high heart rate Time Seen by Provider: 09/26/22 09:40 History of Present Illness HPI narrative: Patient is a 77-year-old female history of SVT hypertension hyperlipidemia presenting today with chest discomfort. She reports that she was supposed to have a stress test today. She was taken off all of her medication yesterday however she would an episode of SVT last night and yesterday lasting from 3:00 p.m. to 7:00 p.m. he had to take some diltiazem I did get her out of it. This morning she woke up with some epigastric like pain as a dull aching pressure nonradiating lasting for approximately 10 minutes coming and going. Nothing specific made it better or worse. She then got extremely anxious and was hyperventilating decided to come to the ER. She is in sinus rhythm. He currently is no longer having any chest pain. He denied shortness of breath nausea or vomiting Related Data Home Medications Medication Instructions Recorded Confirmed aspirin 81 mg tablet,delayed 81 mg PO DAILY 03/17/18 11/16/21 release (Aspir-) calcitonin (salmon) 200 1 spray intranasal (ALT) DAILY 02/25/19 11/16/21 unit/actuation nasal spray ibuprofen 200 mg tablet 400 mg PO BID PRN Pain, Mild 02/25/19 11/16/21 levothyroxine 50 mcg capsule 50 mcg PO DAILY 02/25/19 11/16/21 (Tirosint) metformin 500 mg tablet 500 mg PO TID 02/25/19 11/16/21 Calcium 500 + D 1 tab PO DAILY 05/09/19 11/16/21 lisinopril 2.5 mg tablet 2.5 mg PO DAILY 05/09/19 11/16/21 metoprolol tartrate 25 mg tablet 25 mg PO TID PRN palpitations 05/09/19 11/16/21 Previous Rx's Medication Instructions Recorded lidocaine 5 % topical patch 1 patch topical DAILY PRN pain #15 11/16/21 (Lidoderm) ea methocarbamol 500 mg tablet 500 mg PO Q8H PRN muscle spasm #20 11/16/21 tabs methylprednisolone 4 mg tablets in See Rx Instructions PO PER PKG DIR 11/16/21 a dose pack (Medrol (Sathish)) #21 ea mupirocin 2 % topical ointment 1 applic topical BID #15 grams 11/16/21 tramadol 50 mg tablet 50 mg PO DAILY PRN pain #14 tabs 11/16/21 Allergies Allergy/AdvReac Type Severity Reaction Status Date / Time sodium chloride for AdvReac Severe Dizziness Verified 01/05/21 23:22 inhalation [From Saline] Review of Systems Review of Systems ROS Unobtainable: All systems reviewed & are unremarkable except as noted in HPI and below Patient History Medical History (Updated 09/26/22 @ 12:57 by Kay Carson DO) Complete uterovaginal prolapse Diabetes GERD (gastroesophageal reflux disease) History of compression fracture of spine History of ectopic Hypothyroidism (acquired) Menieres disease Osteopenia Postmenopausal Surgical History History of appendectomy History of carpal tunnel repair History of kyphoplasty History of surgery Social History household members: spouse Smoking Status: Never smoker Smoking Status: Never smoker alcohol intake frequency: 0-2 drinks per day Substance Use Type: does not use Exam Initial Vital Signs Initial Vital Signs: Vital Signs Temperature 98.4 F 09/26/22 09:37 Pulse Rate 111 H 09/26/22 09:37 Respiratory Rate 20 09/26/22 09:37 Blood Pressure 187/68 H 09/26/22 09:37 Pulse Oximetry 99 09/26/22 09:37 Oxygen Delivery Method 09/26/22 09:37 GENERAL: Alert pleasant 77-year-old female and in no acute distress. HEENT: Head atraumatic,EOMI, pupils reactive, face symmetric, moist mucous membranes CARDIOVASCULAR: Regular rate and rhythm without murmurs, rubs or gallops. RESPIRATORY: Breath sounds equal bilaterally, no wheezes rales or rhonchi. ABDOMEN: Soft, nontender. Normoactive bowel sounds all 4 quadrants. No guarding or rebound. EXTREMITIES: Normal range of motion, no clubbing or edema. Neurovascularly intact NEUROLOGICAL: Alert and oriented x4.Normal gait and speech. SKIN: Warm, dry, no laceration, no petechiae, no rashes or lesions. Course Orders Ordered: ED Orders 09/26/22 10:30 Urine Culture Stat Urine Microscopic Stat 09/26/22 11:42 Troponin & CK Cardiac Panel Stat Discontinued Medications Sodium Chloride (Normal Saline 0.9%) 1,000 mls @ 150 mls/hr IV CONT JASON Last Admin: 09/26/22 12:46 Dose: Not Given Documented By: NATALEE Vital Signs Vital signs: Vital Signs - 8 hr 09/26/22 11:10 09/26/22 11:10 09/26/22 11:15 Pulse Rate 74 76 Respiratory Rate 35 H 52 H Blood Pressure 157/69 H Pulse Oximetry 98 96 Oxygen Delivery Method 09/26/22 11:20 09/26/22 11:20 09/26/22 11:30 Pulse Rate 77 Respiratory Rate 44 H Blood Pressure 169/75 H 172/81 H Pulse Oximetry 97 Oxygen Delivery Method 09/26/22 11:30 09/26/22 11:40 09/26/22 11:40 Pulse Rate 84 77 Respiratory Rate 60 H 33 H Blood Pressure 167/75 H Pulse Oximetry 98 97 Oxygen Delivery Method 09/26/22 11:45 09/26/22 11:50 09/26/22 11:50 Pulse Rate 76 77 Respiratory Rate 53 H 47 H Blood Pressure 159/73 H Pulse Oximetry 98 97 Oxygen Delivery Method 09/26/22 12:00 09/26/22 12:00 09/26/22 12:13 Pulse Rate 78 Respiratory Rate 39 H Blood Pressure 170/77 H 163/72 H Pulse Oximetry 97 Oxygen Delivery Method 09/26/22 12:13 09/26/22 12:15 09/26/22 12:20 Pulse Rate 67 69 68 Respiratory Rate 28 H 20 24 Blood Pressure Pulse Oximetry 98 99 98 Oxygen Delivery Method 09/26/22 12:20 09/26/22 12:30 09/26/22 12:30 Pulse Rate 76 Respiratory Rate 24 Blood Pressure 156/63 H 149/67 H Pulse Oximetry 96 Oxygen Delivery Method 09/26/22 12:40 09/26/22 12:40 09/26/22 12:45 Pulse Rate 74 73 Respiratory Rate Blood Pressure 162/74 H Pulse Oximetry 97 97 Oxygen Delivery Method 09/26/22 12:50 09/26/22 12:50 09/26/22 13:00 Pulse Rate 75 82 Respiratory Rate 20 20 Blood Pressure 158/72 H Pulse Oximetry 97 98 Oxygen Delivery Method Room Air MDM - Chest Pain Lab Data 09/26/22 09:30 09/26/22 09:30 Labs: Lab Results 09/26/22 09/26/22 09/26/22 Range/Units 09:30 09:30 09:30 WBC 5.4 (4.5-11.0) X10^3/uL RBC 4.70 (4.0-5.2) X10^6/uL Hgb 13.7 (12.0-16.0) g/dL Hct 40.9 (36-46) % MCV 87.0 (80-100) fL MCH 29.1 (26-34) PG MCHC 33.4 (30-36) % RDW 13.8 (11.6-14.8) % Plt Count 289 (150-400) X10^3/uL Neut % (Auto) 47.4 L (50-75) % Lymph % (Auto) 39.3 (25-40) % [place] % (Auto) 7.2 (3-14) % Eos % (Auto) 4.9 H (2-4) % Baso % (Auto) 1.2 (0-2) % Neut # (Auto) 2500 (2813-9198) /uL Lymph # (Auto) 2100 (6180-6664) /uL [place] # (Auto) 400 (0-900) /uL Eos # (Auto) 300 (0-450) /uL Baso # (Auto) 100 (0-100) /uL PT 12.4 (10.1-12.7) SECONDS INR 1.1 (0.9-1.3) APTT 30 (26-36) SECONDS Sodium 136 L (137-145) mmol/L Potassium 3.6 (3.4-5.1) mmol/L Chloride 98 (98-107) mmol/L Carbon Dioxide 25 (22-32) mmol/L BUN 21 H (7-17) mg/dL Creatinine 0.87 (0.52-1.04) mg/dL Estimated GFR > 60 (>60) mL/min BUN/Creatinine Ratio 24.1 H (6-22) Glucose 246 H (80-110) mg/dL Calcium 9.3 (8.4-10.2) mg/dL Magnesium 1.5 L (1.6-2.3) mg/dL Total Bilirubin 0.7 (0.2-1.3) mg/dL AST 19 (14-36) IU/L ALT 15 (<35) IU/L Alkaline Phosphatase 87 (38-126) U/L Total Creatine Kinase 38 (30-135) U/L CK-MB (CK-2) TNP CK-MB (CK-2) Rel Index TNP Troponin I < 0.012 (0.01-0.034) ng/mL Total Protein 8.2 (6.3-8.2) g/dL Albumin 4.5 (3.5-5.0) g/dL Globulin 3.7 (1.7-4.1) g/dL Albumin/Globulin Ratio 1.2 (1.0-2.8) Lipase 237 (23-300) U/L Urine RBC (0-5/HPF) Urine WBC (0-5/HPF) Ur Squamous Epith Cells (0-5/HPF) Urine Bacteria (None) Ur Culture Indicated? 09/26/22 09/26/22 Range/Units 10:30 11:42 WBC (4.5-11.0) X10^3/uL RBC (4.0-5.2) X10^6/uL Hgb (12.0-16.0) g/dL Hct (36-46) % MCV (80-100) fL MCH (26-34) PG MCHC (30-36) % RDW (11.6-14.8) % Plt Count (150-400) X10^3/uL Neut % (Auto) (50-75) % Lymph % (Auto) (25-40) % [place] % (Auto) (3-14) % Eos % (Auto) (2-4) % Baso % (Auto) (0-2) % Neut # (Auto) (6839-9296) /uL Lymph # (Auto) (2986-6678) /uL [place] # (Auto) (0-900) /uL Eos # (Auto) (0-450) /uL Baso # (Auto) (0-100) /uL PT (10.1-12.7) SECONDS INR (0.9-1.3) APTT (26-36) SECONDS Sodium (137-145) mmol/L Potassium (3.4-5.1) mmol/L Chloride (98-107) mmol/L Carbon Dioxide (22-32) mmol/L BUN (7-17) mg/dL Creatinine (0.52-1.04) mg/dL Estimated GFR (>60) mL/min BUN/Creatinine Ratio (6-22) Glucose (80-110) mg/dL Calcium (8.4-10.2) mg/dL Magnesium (1.6-2.3) mg/dL Total Bilirubin (0.2-1.3) mg/dL AST (14-36) IU/L ALT (<35) IU/L Alkaline Phosphatase (38-126) U/L Total Creatine Kinase 36 (30-135) U/L CK-MB (CK-2) TNP CK-MB (CK-2) Rel Index TNP Troponin I < 0.012 (0.01-0.034) ng/mL Total Protein (6.3-8.2) g/dL Albumin (3.5-5.0) g/dL Globulin (1.7-4.1) g/dL Albumin/Globulin Ratio (1.0-2.8) Lipase (23-300) U/L Urine RBC 1-5/hpf (0-5/HPF) Urine WBC 30-100/hpf H (0-5/HPF) Ur Squamous Epith Cells 1-5 /hpf (0-5/HPF) Urine Bacteria Many (>30) H (None) Ur Culture Indicated? Specimen cultured Urine Dip Bedside Urine Glucose Negative Bedside Urine Bilirubin - Negative Bedside Urine Ketone - Negative Urine Specific [place] 1.015 Bedside Urine Occult Blood +/- Bedside Urine pH 6.0 Bedside Urine Protein - Negative Bedside Urine Urobilinogen - Negative Bedside Urine Nitrite + Positive Bedside Urine Leukocytes ++ 125 Esterase Imaging Data Chest x-ray: Radiologist's Impression: XRay Report Signed Patient: Soraida Barry MR#: [id number] : 1945 Acct:[id number] Age/Sex: 77 / F Date of Service: 09/26/22 Loc: ED Accession Number: [id number] ?? Procedure: XR chest 1V Ordering Provider: Kay Carson D.O. PROCEDURE:? XR CHEST 1V ? INDICATIONS:? chest pain ? TECHNIQUE:? One view of the chest was acquired.? ? COMPARISON:? [facility], , XR CHEST 1V, 06/23/2021, 2:15. ? FINDINGS:? ? Surgical changes and devices:? Numerous thoracic and lumbar compression fractures have been treated with percutaneous cement. ? Lungs and pleura:? Lungs are clear.? No pleural effusions or pneumothorax.? ? Mediastinum:? Mediastinal contours appear normal.? Heart size is normal.? ? Bones and chest wall:? No suspicious bony lesions.? Overlying soft tissues appear unremarkable.? ? IMPRESSION:? No evidence acute pulmonary process. ? ? ECG Data Interpretation: Normal sinus rhythm rate 98 AL interval 144 QRS [address] changes. T-wave inversion noted in lead 3, similar to previous MDM Narrative Medical decision making narrative: Patient 77-year-old female history of SVT, hypertension hyperlipidemia presenting today with chest pain. She was scheduled have a stress test today however due to her chest pain and an episode of SVT last night she missed her stress test. She has had this pain before. Patient did have an episode of SVT yesterday after not being medicated secondary to her up stress test. However she had epigastric pressure like pain this morning. Nonradiating. Fairly constant atypical for acute coronary syndrome. She did take her diltiazem yesterday to help get her out of SVT. Is noted to be mildly hypertensive blood pressure 187/68 no sign of end-organ damage she sent a sinus rhythm. Chest x-ray is negative. She is 2- troponins .12:22 Dr. Dan, cardiology updated on patient's symptoms test results. He thinks this is all from missing her medication. He reports that her stress test needs to be rescheduled and that she should always take her medications despite an upcoming stress test Patient has been chest pain-free here in the emergency department. She reports that she feels quite anxious and she thinks that is what has happened. Blood pressure has improved without any intervention. Differential diagnosis considered, arrhythmia acute coronary syndrome, pulmonary embolism pneumothorax, anxiety Discharge Plan Departure Patient Disposition: Home Clinical Impression: Chest pain, SVT (supraventricular tachycardia) Instructions: DI for Atypical Chest Pain Activity Restrictions/Additional Instructions: *You have been diagnosed with SVT and atypical chest pain *What to do: I spoke with Cardiology who reports that you do need a stress test have it rescheduled and whatever you do do not stop taking your medication. Please resume all medications as previously prescribed. *Continue to take medications as directed *Follow up with your primary care provider in 2-3 days or call [phone] *Return to ER if you should have increasing chest discomfort shortness of breath, palpitations dizziness passing out or any new, worsening or concerning symptoms Prescriptions: No Action methocarbamol 500 mg tablet 500 mg PO Q8H PRN (Reason: muscle spasm) Qty: 20 0RF tramadol 50 mg tablet 50 mg PO DAILY PRN (Reason: pain) Qty: 14 0RF lidocaine [Lidoderm] 5 % adhesive patch,medicated 1 patch topical DAILY PRN (Reason: pain) Qty: 15 0RF Rx Instructions: leave on most painful area for up to 12 hrs mupirocin 2 % ointment 1 applic topical BID Qty: 15 0RF methylprednisolone [Medrol (Sathish)] 4 mg tablets,dose pack See Rx Instructions PO PER PKG DIR Qty: 21 0RF Rx Instructions: PO PER PKG DIR aspirin [Aspir-81] 81 mg tablet,delayed release (DR/EC) 81 mg PO DAILY metformin 500 mg Tablet 500 mg PO TID Label Comments: patient states takes twice a day. 05/09/19 Rx Instructions: with meals calcitonin (salmon) 200 unit/actuation Andrew,Non-Aerosol 1 spray INTRANASAL (ALT) DAILY ibuprofen 200 mg Tablet 400 mg PO BID PRN (Reason: Pain, Mild) Tirosint 50 mcg Capsule 50 mcg PO DAILY lisinopril 2.5 mg Tablet 2.5 mg PO DAILY metoprolol tartrate 25 mg Tablet 25 mg PO TID PRN (Reason: palpitations) Calcium 500 + D 1 tab PO DAILY Referrals: Arun Tavares MD [Primary Care Provider] - Stand Alone Forms: Patient Portal/API
[2022-09-26 12:01] LABS: Creatine Kinase 36 U/L (30-135)
[2022-09-26 12:33] LABS: Troponin I < 0.012 ng/mL (0.01-0.034)
== END 2022-09-26 13:10 | disposition home or self-care (01) ==
PROVIDERS: Emergency Provider Emergency Medicine; Family Provider Family Medicine; PCP Family Medicine
DX: R07.9 Chest pain, unspecified (principal); I47.1 Supraventricular tachycardia; Z79.899 Other long term (current) drug therapy
CPT/HCPCS: 36415; 71045; 80053; 81003; 81015; 82550; 83690; 83735; 84484; 85025; 85610; 85730; 87077; 87086; 87186; 93005; 93010; 99284

== ENCOUNTER 2022-10-19 10:05 | Emergency (ER) | payer MEDICARE, OTHER, SELFPAY ==
--- NOTE | 2022-10-19 10:09 | DI.RAD.S_ITS ---
PROCEDURE: XR CHEST 1V INDICATIONS: chest pain TECHNIQUE: One view of the chest was acquired. COMPARISON: [facility], CR, XR CHEST 1V, 09/26/2022, 9:41. FINDINGS: Surgical changes and devices: None. Lungs and pleura: Lungs are clear. No pleural effusions or pneumothorax. Mediastinum: Mediastinal contours appear normal. Heart size is normal. Bones and chest wall: No suspicious bony lesions. Overlying soft tissues appear unremarkable. Postoperative changes of multilevel vertebroplasty. IMPRESSION: No acute abnormality Dictated by: Cecil Danielson M.D. on 10/19/2022 at 9:51 Approved by: Cecil Danielson M.D. on 10/19/2022 at 10:00
--- NOTE | 2022-10-19 10:19 | ED.GENADULT ---
HPI - General Adult General Chief complaint: Chest Pain Stated complaint: heart problems Time Seen by Provider: 10/19/22 10:06 Source: patient Mode of arrival: Ambulatory Limitations: no limitations History of Present Illness HPI narrative: Patient is a 77-year-old female. Has a history of SVT. Currently has a ZIO patch in place. Is here for evaluation because this morning she generally was not feeling well. They took her heart rate at home and she was in the 50s. She is having some shortness of breath. She also states she thinks that she has an ulcer. She is recently on some medications for a bladder infection but has since stopped those medications because she states that her stomach can handle them. Related Data Home Medications Medication Instructions Recorded Confirmed aspirin 81 mg tablet,delayed 81 mg PO DAILY 03/17/18 11/16/21 release (Aspir-) calcitonin (salmon) 200 1 spray intranasal (ALT) DAILY 02/25/19 11/16/21 unit/actuation nasal spray ibuprofen 200 mg tablet 400 mg PO BID PRN Pain, Mild 02/25/19 11/16/21 levothyroxine 50 mcg capsule 50 mcg PO DAILY 02/25/19 11/16/21 (Tirosint) metformin 500 mg tablet 500 mg PO TID 02/25/19 11/16/21 Calcium 500 + D 1 tab PO DAILY 05/09/19 11/16/21 lisinopril 2.5 mg tablet 2.5 mg PO DAILY 05/09/19 11/16/21 metoprolol tartrate 25 mg tablet 25 mg PO TID PRN palpitations 05/09/19 11/16/21 Previous Rx's Medication Instructions Recorded lidocaine 5 % topical patch 1 patch topical DAILY PRN pain #15 11/16/21 (Lidoderm) ea methocarbamol 500 mg tablet 500 mg PO Q8H PRN muscle spasm #20 11/16/21 tabs methylprednisolone 4 mg tablets in See Rx Instructions PO PER PKG DIR 11/16/21 a dose pack (Medrol (Sathish)) #21 ea mupirocin 2 % topical ointment 1 applic topical BID #15 grams 11/16/21 tramadol 50 mg tablet 50 mg PO DAILY PRN pain #14 tabs 11/16/21 Allergies Allergy/AdvReac Type Severity Reaction Status Date / Time sodium chloride for AdvReac Severe Dizziness Verified 10/19/22 10:31 inhalation [From Saline] Review of Systems Constitutional Constitutional: Reports system reviewed and no additional complaints, except as documented Cardiovascular Cardiovascular: Reports system reviewed and no additional complaints, except as documented Respiratory Respiratory: Reports system reviewed and no additional complaints, except as documented Gastrointestinal Gastrointestinal: Reports system reviewed and no additional complaints, except as documented Integumentary/Breasts Skin/Breast: Reports system reviewed and no additional complaints, except as documented Neurologic Neurologic: Reports system reviewed and no additional complaints, except as documented Patient History Medical History (Updated 10/19/22 @ 11:50 by Nirmal Kraft DO) Complete uterovaginal prolapse Diabetes GERD (gastroesophageal reflux disease) History of compression fracture of spine History of ectopic Hypothyroidism (acquired) Menieres disease Osteopenia Postmenopausal Surgical History History of appendectomy History of carpal tunnel repair History of kyphoplasty History of surgery Social History household members: spouse Smoking Status: Never smoker Smoking Status: Never smoker alcohol intake frequency: 0-2 drinks per day Substance Use Type: does not use Exam Initial Vital Signs Initial Vital Signs: Vital Signs Temperature 97.9 F 10/19/22 10:22 Pulse Rate 94 H 10/19/22 10:22 Respiratory Rate 18 10/19/22 10:22 Blood Pressure 117/80 10/19/22 10:22 Pulse Oximetry 99 10/19/22 10:22 Oxygen Delivery Method Room Air 10/19/22 10:22 Const General: cooperative and comfortable HENMT Head: normal to inspection and normocephalic Resp Effort & Inspection: normal respiratory effort Auscultation: clear to auscultation bilaterally Cardio Rate: regular rate Rhythm: regular rhythm GI Palpation: soft, No firm and No tender Neuro General: patient alert, patient awake and moves all extremities Extrem General: No edema Psych Mood: anxious mood Course Orders Ordered: ED Orders 10/19/22 10:09 XR chest 1V Stat 10/19/22 10:10 EKG-12 Lead Stat 10/19/22 10:15 Complete Blood Count AUTO DIFF Stat Comprehensive Metabolic Panel Stat Covid-19 + FLU A/B + RSV - PCR Stat Lipase Stat Magnesium Stat TSH [Thyroid Stimulating Hormone] Stat Troponin & CK Cardiac Panel Stat Discontinued Medications Pantoprazole Sodium (Pantoprazole 40 Mg Vial) 40 mg IV NOW ONE Stop: 10/19/22 10:19 Last Admin: 10/19/22 10:40 Dose: 40 mg Documented By: MIN Vital Signs Vital signs: Vital Signs - 8 hr 10/19/22 10:22 10/19/22 10:46 10/19/22 10:46 Temperature 97.9 F Pulse Rate 94 H 79 Respiratory Rate 18 20 Blood Pressure 117/80 153/70 H Pulse Oximetry 99 99 Oxygen Delivery Method Room Air 10/19/22 11:00 10/19/22 11:00 Temperature Pulse Rate 75 Respiratory Rate 22 Blood Pressure 147/67 H Pulse Oximetry 99 Oxygen Delivery Method Room Air Medical Decision Making Medical Records Medical records reviewed: Yes I reviewed the patient's medical records. Lab Data Lab results reviewed: Yes I reviewed the patient's lab results. 10/19/22 10:15 10/19/22 10:15 Labs: Lab Results 10/19/22 10/19/22 10/19/22 Range/Units 10:15 10:15 10:15 WBC 3.3 L (4.5-11.0) X10^3/uL RBC 5.28 H (4.0-5.2) X10^6/uL Hgb 15.0 (12.0-16.0) g/dL Hct 46.6 H (36-46) % MCV 88.4 (80-100) fL MCH 28.5 (26-34) PG MCHC 32.2 (30-36) % RDW 14.4 (11.6-14.8) % Plt Count 317 (150-400) X10^3/uL Neut % (Auto) 49.4 L (50-75) % Lymph % (Auto) 30.2 (25-40) % [place] % (Auto) 15.8 H (3-14) % Eos % (Auto) 4.4 H (2-4) % Baso % (Auto) 0.2 (0-2) % Neut # (Auto) 1700 (9526-1221) /uL Lymph # (Auto) 1000 L (8862-1819) /uL [place] # (Auto) 500 (0-900) /uL Eos # (Auto) 100 (0-450) /uL Baso # (Auto) 0 (0-100) /uL Sodium 134 L (137-145) mmol/L Potassium 4.0 (3.4-5.1) mmol/L Chloride 97 L (98-107) mmol/L Carbon Dioxide 22 (22-32) mmol/L BUN 24 H (7-17) mg/dL Creatinine 1.17 H (0.52-1.04) mg/dL Estimated GFR 48 L (>60) mL/min BUN/Creatinine Ratio 20.5 (6-22) Glucose 221 H (80-110) mg/dL Calcium 9.8 (8.4-10.2) mg/dL Magnesium 1.7 (1.6-2.3) mg/dL Total Bilirubin 0.4 (0.2-1.3) mg/dL AST 26 (14-36) IU/L ALT 18 (<35) IU/L Alkaline Phosphatase 109 (38-126) U/L Total Creatine Kinase 31 (30-135) U/L CK-MB (CK-2) TNP CK-MB (CK-2) Rel Index TNP Troponin I < 0.012 (0.01-0.034) ng/mL Total Protein 9.5 H (6.3-8.2) g/dL Albumin 5.0 (3.5-5.0) g/dL Globulin 4.5 H (1.7-4.1) g/dL Albumin/Globulin Ratio 1.1 (1.0-2.8) Lipase 240 (23-300) U/L TSH 0.856 (0.47-4.68) uIU/mL SARS-CoV-2 (PCR) (Negative) Influenza A (RT-PCR) (NEGATIVE) Influenza B (RT-PCR) (NEGATIVE) RSV (PCR) (Negative) 10/19/22 Range/Units 10:15 WBC (4.5-11.0) X10^3/uL RBC (4.0-5.2) X10^6/uL Hgb (12.0-16.0) g/dL Hct (36-46) % MCV (80-100) fL MCH (26-34) PG MCHC (30-36) % RDW (11.6-14.8) % Plt Count (150-400) X10^3/uL Neut % (Auto) (50-75) % Lymph % (Auto) (25-40) % [place] % (Auto) (3-14) % Eos % (Auto) (2-4) % Baso % (Auto) (0-2) % Neut # (Auto) (0840-1207) /uL Lymph # (Auto) (7638-8428) /uL [place] # (Auto) (0-900) /uL Eos # (Auto) (0-450) /uL Baso # (Auto) (0-100) /uL Sodium (137-145) mmol/L Potassium (3.4-5.1) mmol/L Chloride (98-107) mmol/L Carbon Dioxide (22-32) mmol/L BUN (7-17) mg/dL Creatinine (0.52-1.04) mg/dL Estimated GFR (>60) mL/min BUN/Creatinine Ratio (6-22) Glucose (80-110) mg/dL Calcium (8.4-10.2) mg/dL Magnesium (1.6-2.3) mg/dL Total Bilirubin (0.2-1.3) mg/dL AST (14-36) IU/L ALT (<35) IU/L Alkaline Phosphatase (38-126) U/L Total Creatine Kinase (30-135) U/L CK-MB (CK-2) CK-MB (CK-2) Rel Index Troponin I (0.01-0.034) ng/mL Total Protein (6.3-8.2) g/dL Albumin (3.5-5.0) g/dL Globulin (1.7-4.1) g/dL Albumin/Globulin Ratio (1.0-2.8) Lipase (23-300) U/L TSH (0.47-4.68) uIU/mL SARS-CoV-2 (PCR) Negative (Negative) Influenza A (RT-PCR) Flu a negative (NEGATIVE) Influenza B (RT-PCR) Flu b negative (NEGATIVE) RSV (PCR) Negative (Negative) Imaging Data Chest x-ray: Radiologist's Impression: PROCEDURE:? XR CHEST 1V ? INDICATIONS:? chest pain ? TECHNIQUE:? One view of the chest was acquired.? ? COMPARISON:? [facility], CR, XR CHEST 1V, 09/26/2022, 9:41. ? FINDINGS:? ? Surgical changes and devices:? None.? ? Lungs and pleura:? Lungs are clear.? No pleural effusions or pneumothorax.? ? Mediastinum:? Mediastinal contours appear normal.? Heart size is normal.? ? Bones and chest wall:? No suspicious bony lesions.? Overlying soft tissues appear unremarkable.? Postoperative changes of multilevel vertebroplasty. ? IMPRESSION:? No acute abnormality ECG Data Attestation: I personally reviewed and interpreted this ECG as follows: Interpretation: Sinus rhythm Ventricular rate 80 Left axis Normal QRS Normal QTC Artifact noted Nonspecific ST T wave changes MDM Narrative Medical decision making narrative: Patient has had no ectopy on the monitor nor on the EKG. Labs are unremarkable. No signs of infection. I do suspect that she is having GI upset she did get better after the Protonix. Her stomach issues also seemed to gotten worse after starting some antibiotics for an asymptomatic urinary tract infection. She is wearing a ZIO patch and we discussed that we need to have the results of that before we make any potential changes to rate influencing cardiac medications. Will discharge patient home with instructions to follow up with the primary doctor. She was given return precautions. She expressed understanding and agreement. Discharge Plan Departure Patient Disposition: Home Clinical Impression: Abdominal pain Instructions: DI for Abdominal Pain-Adult Activity Restrictions/Additional Instructions: Recommend that you stop any antibiotics. Continue the rest of your medications as directed. Keep all of your scheduled medical appointments. Return to the emergency department for any new symptoms. Prescriptions: No Action methocarbamol 500 mg tablet 500 mg PO Q8H PRN (Reason: muscle spasm) Qty: 20 0RF tramadol 50 mg tablet 50 mg PO DAILY PRN (Reason: pain) Qty: 14 0RF lidocaine [Lidoderm] 5 % adhesive patch,medicated 1 patch topical DAILY PRN (Reason: pain) Qty: 15 0RF Rx Instructions: leave on most painful area for up to 12 hrs mupirocin 2 % ointment 1 applic topical BID Qty: 15 0RF methylprednisolone [Medrol (Sathish)] 4 mg tablets,dose pack See Rx Instructions PO PER PKG DIR Qty: 21 0RF Rx Instructions: PO PER PKG DIR aspirin [Aspir-81] 81 mg tablet,delayed release (DR/EC) 81 mg PO DAILY metformin 500 mg Tablet 500 mg PO TID Patient Comments: patient states takes twice a day. 9/30/19 Rx Instructions: with meals calcitonin (salmon) 200 unit/actuation Welches,Non-Aerosol 1 spray INTRANASAL (ALT) DAILY ibuprofen 200 mg Tablet 400 mg PO BID PRN (Reason: Pain, Mild) Tirosint 50 mcg Capsule 50 mcg PO DAILY lisinopril 2.5 mg Tablet 2.5 mg PO DAILY metoprolol tartrate 25 mg Tablet 25 mg PO TID PRN (Reason: palpitations) Calcium 500 + D 1 tab PO DAILY Referrals: Arun Tavares MD [Primary Care Provider] - Stand Alone Forms: Patient Portal/API
[2022-10-19 10:22] VITALS: BP 117/80; PULSE 94; RESP 18; TEMP 36.6; O2SAT 99; BMI 25.6
[2022-10-19 10:26] LABS: Add Manual Diff / Slide Review NO; Basophils Absolute Auto 0 /uL (0-100); Basophils Percent Auto 0.2 % (0-2); Eosinophils Absolute Auto 100 /uL (0-450); Eosinophils Percent Auto 4.4 % (2-4); Hematocrit 46.6 % (36-46); Lymphocytes Absolute Auto 1000 /uL (1100-4500); Lymphocytes Percent Auto 30.2 % (25-40); Mean Corpuscular HGB Conc 32.2 % (30-36); Mean Corpuscular Hemoglobin 28.5 PG (26-34); Mean Corpuscular Volume 88.4 fL (80-100); Monocytes Absolute Auto 500 /uL (0-900); Monocytes Percent Auto 15.8 % (3-14); Neutrophils Absolute Auto 1700 /uL (1500-7000); Neutrophils Percent Auto 49.4 % (50-75); Platelet Count 317 X10^3/uL (150-400); Red Blood Cell Count 5.28 X10^6/uL (4.0-5.2); Red Cell Distribution Width 14.4 % (11.6-14.8); White Blood Cell Count 3.3 X10^3/uL (4.5-11.0)
[2022-10-19 10:37] LABS: Alanine Aminotransferase 18 IU/L (<35); Albumin Globulin Ratio 1.1 (1.0-2.8); Alkaline Phosphatase 109 U/L (38-126); Aspartate Aminotransferase 26 IU/L (14-36); BUN Creatinine Ratio 20.5 (6-22); Bilirubin Total 0.4 mg/dL (0.2-1.3); Blood Urea Nitrogen 24 mg/dL (7-17); Calcium 9.8 mg/dL (8.4-10.2); Carbon Dioxide 22 mmol/L (22-32); Chloride 97 mmol/L (98-107); Creatine Kinase 31 U/L (30-135); Estimated Glomerular Filt Rate 48 mL/min (>60); Globulin 4.5 g/dL (1.7-4.1); Glucose 221 mg/dL (80-110); HEMOLYSIS < 15 (0-50); Lipase 240 U/L (23-300); Magnesium 1.7 mg/dL (1.6-2.3); Sodium 134 mmol/L (137-145); Total Protein 9.5 g/dL (6.3-8.2)
[2022-10-19] MEDS: PANTOPRAZOLE 40 MG VIAL IV (10:40)
[2022-10-19 10:46] VITALS: BP 153/70; PULSE 79; RESP 20; O2SAT 99
[2022-10-19 11:00] VITALS: BP 147/67; PULSE 75; RESP 22; O2SAT 99
[2022-10-19 11:02] LABS: Troponin I < 0.012 ng/mL (0.01-0.034)
[2022-10-19 11:08] LABS: Influenza A - CEPHEID Flu A NEGATIVE (NEGATIVE); Influenza B - CEPHEID Flu B NEGATIVE (NEGATIVE); Respiratory Syncytial Virus Negative (Negative)
[2022-10-19 11:13] LABS: COVID-19 CEPHEID 4-PLEX PCR Negative (Negative); Thyroid Stimulating Hormone 0.856 uIU/mL (0.47-4.68)
== END 2022-10-19 12:15 | disposition home or self-care (01) ==
PROVIDERS: Emergency Provider Emergency Medicine; Family Provider Family Medicine; PCP Family Medicine
DX: R10.9 Unspecified abdominal pain (principal); R07.9 Chest pain, unspecified; Z79.899 Other long term (current) drug therapy; Z20.822 Contact with and (suspected) exposure to COVID-19
CPT/HCPCS: 0241U; 36415; 71045; 80053; 82550; 83690; 83735; 84443; 84484; 85025; 93005; 93010; 96374; 99284; C9113

== ENCOUNTER → 2024-03-21 15:32 | Outpatient (ROUT) | payer MEDICARE, OTHER, SELFPAY ==
[2024-03-21 17:31] LABS: COVID-19 CEPHEID PCR (VTM/NP) Negative (Negative)
== END ==
PROVIDERS: Family Provider Family Medicine; PCP Family Medicine; Visit Provider Internal Medicine
DX: J02.9 Acute pharyngitis, unspecified (principal); R68.83 Chills (without fever)
CPT/HCPCS: 87635

== ENCOUNTER → 2024-12-12 12:57 | Outpatient (CLI) | payer MEDICARE, OTHER, SELFPAY ==
--- NOTE | 2024-12-12 13:03 | DI.RAD.S_ITS ---
PROCEDURE: XR STERNUM 2V INDICATIONS: Unspecified fracture of sternum, sequela TECHNIQUE: 2 views of the sternum acquired. COMPARISON: No prior sternum x-ray for comparison. FINDINGS: Given the history possible fracture of the mid sternal body and at the superior aspect of the manubrium versus artifact partially imaged due to overlap from ribs, mediastinum and other structures. CT sternum is more optimal. Osteopenia and numerous compression fractures and vertebroplasty/kyphoplasty changes of the thoracic spine partially imaged. IMPRESSION: Possible sternal fracture. Thoracic compression fractures. If indicated CT chest/CT sternum could be considered. Dictated by: Mike Davies M.D. on 12/12/2024 at 16:48 Approved by: Mike Davies M.D. on 12/12/2024 at 16:53
== END ==
PROVIDERS: Family Provider Family Medicine; PCP Family Medicine; Referring Provider Family Medicine; Visit Provider Family Medicine
DX: M48.54XA Collapsed vertebra, not elsewhere classified, thoracic region, initial encounter for fracture (principal); S22.20XS Unspecified fracture of sternum, sequela
CPT/HCPCS: 71120

== ENCOUNTER → 2024-12-30 13:10 | Outpatient (CLI) | payer MEDICARE, OTHER, SELFPAY ==
--- NOTE | 2024-12-30 13:11 | DI.CT.S_ITS ---
PROCEDURE: CT CHEST WO CON INDICATIONS: Sternal fracture reported by patient to have occurred in June of 2024, without definite healing. Multiple osteoporotic compression fractures and kyphoplasty procedures through the thoracic spine into the upper lumbar spine. TECHNIQUE: Noncontrast 5 mm thick sections acquired from the pulmonary apices to the posterior costophrenic angles. 1 mm lung window, 5 mm thick coronal and sagittal and 7 mm axial MIP reformats were then acquired. For radiation dose reduction, the following was used: automated exposure control, adjustment of mA and/or kV according to patient size. COMPARISON: [facility], CR, XR STERNUM MIN 2V, 12/12/2024, 13:19. FINDINGS: Image quality: Diagnostic. Lower Neck: No enlarged lymph nodes. Thyroid: No thyroid nodules which require sonographic follow up, per consensus guidelines. Axillae: No enlarged lymph nodes. Chest Wall: Unremarkable. Bones: Multiple thoracic and upper lumbosacral spine osteoporotic compression fractures treated by radiodense bone-cement are again noted. No acute fracture is found. Note is made of what appears to be a healed upper sternal fracture best seen on sagittal re-formation imaging from source axial data. For example, please refer to series 11, image 32 where a slight offset of the fracture margins anteriorly and posteriorly appear present but union through the sternal body marrow space is found. Lungs and Pleura: No pneumothorax or pleural effusions. No consolidation or suspicious nodules. Heart: Heart size is normal. No pericardial effusion. Thoracic Vessels: The aorta and pulmonary arteries demonstrate normal size. Mediastinum and Mallika: No enlarged lymph nodes. Esophagus: No wall thickening. No hiatal hernia. Upper Abdomen: Visualized upper abdomen solid organs and bowel loops appear normal. IMPRESSION: Healed sternal fracture with only a slight offset at the healed fracture margins. Multiple prior osteoporotic thoracic and upper lumbosacral spine vertebral compression fractures treated with radiodense bone-cement are also again noted. No acute fracture is found. Dictated by: Sanjeev Zamora M.D. on 12/30/2024 at 16:35 Approved by: Sanjeev Zamora M.D. on 12/30/2024 at 16:41
== END ==
PROVIDERS: Family Provider Family Medicine; PCP Family Medicine; Referring Provider Family Medicine; Visit Provider Family Medicine
DX: S22.20XG Unspecified fracture of sternum, subsequent encounter for fracture with delayed healing (principal); X58.XXXD Exposure to other specified factors, subsequent encounter
CPT/HCPCS: 71250

== ENCOUNTER → 2025-02-17 18:33 | Outpatient (CLI) | payer MEDICARE, OTHER, SELFPAY ==
--- NOTE | 2025-02-17 18:37 | DI.RAD.S_ITS ---
PROCEDURE: XR HIP W PEL IF DONE BILAT 2V INDICATIONS: PELVIS PAIN TECHNIQUE: AP pelvis with lateral view(s) of the right hip(s). COMPARISON: None. FINDINGS: Bones: No fractures or dislocations. Severe osteopenia. Pelvic ring appears intact. No suspicious bony lesions. Soft tissues: The visualized bowel gas pattern is normal. No suspicious soft tissue calcifications. IMPRESSION: No fractures are seen. In the presence of severe osteopenia, fractures may be radiographically occult. Consider CT pelvis if continue to suspect acute fracture. Dictated by: Chris Raymond M.D. on 02/17/2025 at 23:11 Approved by: Chris Raymond M.D. on 02/17/2025 at 23:15
== END ==
LOC: RAD 18:35
PROVIDERS: Family Provider Family Medicine; PCP Family Medicine; Referring Provider Family Medicine; Visit Provider Family Medicine
DX: M85.88 Other specified disorders of bone density and structure, other site (principal); R10.2 Pelvic and perineal pain
CPT/HCPCS: 73521

== ENCOUNTER → 2025-02-23 13:41 | Outpatient (CLI) | payer MEDICARE, OTHER, SELFPAY ==
--- NOTE | 2025-02-23 13:42 | DI.CT.S_ITS ---
PROCEDURE: CT LUMBAR SPINE WO CON INDICATIONS: LOW BACK PAIN TECHNIQUE: Noncontrast 3 mm thick sections acquired from the T12 level to the sacrum. Sagittal and coronal reformats were constructed. For radiation dose reduction, the following was used: automated exposure control. COMPARISON: None. FINDINGS: Image quality: Excellent. Bones: Osteoporosis by Hounsfield units criteria. Compression deformities of the T10 through L5. Kyphoplasty at T10, T12, L1, L2, L3. No significant endplate retropulsion fractures. The L4 compression fracture appears subacute. T12-L1: Moderate disc height loss. L1-L2: Moderate disc height loss. L2-L3: Moderate disc height loss. Mild right neural foraminal narrowing and left neural foraminal narrowing. L3-L4: Disc osteophyte complex and facet hypertrophy resulting in mild spinal canal narrowing. L4-L5: Disc osteophyte complex, facet hypertrophy, ligamentum flavum hypertrophy resulting in mild spinal canal narrowing. L5-S1: Broad-based disc bulge, facet hypertrophy, ligamentum flavum hypertrophy causing mild spinal canal narrowing. Soft tissues: Staghorn calculus of the left kidney. Cardiomegaly. IMPRESSION: Compression deformities of T10 through L5. The L4 compression deformity appears subacute given the presence of sclerosis. Multilevel degenerative disc disease and facet arthrosis, with up to mild spinal canal narrowing at L5-S1, L4-5 and L3-4. Prior kyphoplasty. Left-sided renal staghorn calculus. Dictated by: Daniel Walsh M.D. on 02/24/2025 at 16:00 Approved by: Daniel Walsh M.D. on 02/24/2025 at 16:04
== END ==
LOC: CT 13:42
PROVIDERS: Family Provider Family Medicine; PCP Family Medicine; Referring Provider Family Medicine; Visit Provider Family Medicine
DX: M51.369 Other intervertebral disc degeneration, lumbar region without mention of lumbar back pain or lower extremity pain (principal); M51.379 Other intervertebral disc degeneration, lumbosacral region without mention of lumbar back pain or lower extremity pain; M81.0 Age-related osteoporosis without current pathological fracture; M47.816 Spondylosis without myelopathy or radiculopathy, lumbar region; M47.817 Spondylosis without myelopathy or radiculopathy, lumbosacral region; M48.061 Spinal stenosis, lumbar region without neurogenic claudication; M48.07 Spinal stenosis, lumbosacral region; N20.0 Calculus of kidney; I51.7 Cardiomegaly; M43.8X5 Other specified deforming dorsopathies, thoracolumbar region; M54.50 Low back pain, unspecified; G89.29 Other chronic pain
CPT/HCPCS: 72131

== ENCOUNTER 2025-03-19 09:01 | Emergency (ER) | payer MEDICARE, OTHER, SELFPAY ==
[2025-03-19] VITALS (15 sets, daily range): BP systolic 160–213; BP diastolic 70–102; PULSE 59–98; RESP 16–30; TEMP 36.7; O2SAT 95–98; BMI 29.1
--- NOTE | 2025-03-19 09:14 | DI.RAD.S_ITS ---
PROCEDURE: XR CHEST 1V INDICATIONS: weakness TECHNIQUE: One view of the chest was acquired. COMPARISON: [facility], CR, XR CHEST 1V, 10/19/2022, 10:37. FINDINGS: Surgical changes and devices: Vertebroplasty material throughout the visualized spine. Lungs and pleura: Low lung volume. Lungs are clear. No pleural effusions or pneumothorax. Mediastinum: Mediastinal contours appear normal. Heart size is normal. Bones and chest wall: No suspicious bony lesions. Overlying soft tissues appear unremarkable. IMPRESSION: No acute cardiopulmonary abnormality is seen. Dictated by: Gabriele Woods M.D. on 03/19/2025 at 8:59 Approved by: Gabriele Woods M.D. on 03/19/2025 at 9:00
--- NOTE | 2025-03-19 09:15 | EKG_ITS ---
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
--- NOTE | 2025-03-19 09:27 | ED_ITS ---
HPI - General Adult General Chief complaint: Hypertension Stated complaint: HTN, Dizziness Time Seen by Provider: 03/19/25 09:02 Source: patient Mode of arrival: EMS History of Present Illness HPI narrative: 79-year-old woman with a history of severe osteoporosis multiple vertebral fractures with significant chronic pain, diabetes hypertension awoke this morning generally feeling unwell and weak. May have had a fever and on arrival in the ER feels that she is somewhat tremulous and shaky. When she awoke feeling unwell she took her blood pressure which was elevated, she took her morning lisinopril with minimal change in blood pressure and was concerned that the hypertension was causing her malaise. She has not noticed cough, dysuria, she has significant chronic back pain, not complaining of abdominal pain, no obvious skin abnormalities or sources for cellulitis, not complaining of headache. No nausea or vomiting Related Data Home Medications ?Medication ?Instructions ?Recorded ?Confirmed aspirin 81 mg tablet,delayed 81 mg PO DAILY 03/17/18 0 03/19/25 release (Aspir-) calcitonin (salmon) 200 1 spray intranasal (ALT) MARIBEL LY 02/25/19 03/19/25 unit/actuation nasal spray ibuprofen 200 mg tablet 400 mg PO BID PRN Pain, Mild 02/25/19 03/19/25 metformin 500 mg tablet 500 mg PO TID 02/25/1903/19 Calcium 500 + D 1 tab PO DAILY 05/09/1903/10 lisinopril 2.5 mg tablet 2.5 mg PO DAILY 05/09/1906/03 metoprolol tartrate 25 mg tablet 25 mg PO TID PRN palp itations 05/09/19 03/19/25 levothyroxine 50 mcg tablet 50 mcg PO DAILY 03/19/25 0 03/19/25 Previous Rx's ?Medication ?Instructions ?Recorded lidocaine 5 % topical patch 1 patch topical DAILY PRN pain #15 11/16/21 (Lidoderm) ea Allergies Allergy/AdvReac Type Severity Reaction Status Date / Time sodium chloride for AdvReac Severe Dizziness Verified 03/19/25 09:17 inhalation (From Saline) narcotics AdvReac Intermediate Vomiting Uncoded 03/19/25 09:17 Review of Systems Review of Systems Narrative: Pertinent positive and negative findings as per HPI Patient History Medical History (Updated 08/10/25 @ 14:51 by Mitali Kendall MD) History of compression fracture of spine Osteopenia GERD (gastroesophageal reflux disease) History of ectopic Postmenopausal Menieres disease Diabetes Hypothyroidism (acquired) Complete uterovaginal prolapse Surgical History History of kyphoplasty History of appendectomy History of carpal tunnel repair History of surgery Social History household members: spouse Smoking Status: Never smoker Smoking Status: Never smoker alcohol intake frequency: 0-2 drinks per day Exam Initial Vital Signs Initial Vital Signs: Vital Signs Pulse Rate 90 03/19/25 09:10 Pulse Oximetry 97 03/19/25 09:10 General: Frail, chronically ill-appearing, difficult moving secondary to her chronic vertebral fractures HEENT: Dry mucous membranes, normal sclera with reactive pupils, lips are slightly pale Neck: No JVD, no cervical adenopathy Respiratory: Lungs are clear to auscultation, no wheezing no rales no rhonchi. Full and symmetrical air movement, significant kyphosis Cardiac: She is noted to be hypertensive, somewhat tachycardic Abdomen: Soft, nontender, no rebound or guarding, no flank pain Skin: Quite thin, no obvious no bruising Neurologic: Globally weak but otherwise Grossly neurologically intact with no obvious asymmetries or abnormalities Extremities: No trauma, well perfused Psych: Cooperative, appropriate insight and affect Course Orders Ordered: ED Orders 03/19/25 08:55 Complete Blood Count AUTO DIFF Stat Comprehensive Metabolic Panel Stat Lactate (Lactic Acid) Stat Lipase Stat Magnesium Stat NT-proBNP (BNP-Adult 18+) Stat Troponin I Stat 03/19/25 09:14 XR chest 1V Stat 03/19/25 09:15 EKG-12 Lead Stat 03/19/25 09:37 Blood Culture Stat 03/19/25 10:30 Urinalysis and Microscopic Stat Urine Culture Stat 03/19/25 12:20 Trop I [Troponin I] Stat Discontinued Medications Ketorolac Tromethamine (Ketorolac 30 Mg/Ml Vial) 15 mg IV NOW ONE Stop: 03/19/25 12:17 Last Admin: 03/19/25 12:33 Dose: 15 mg Documented By: SB Metoprolol Tartrate (Metoprolol Ir 25 Mg Tablet) 50 mg PO NOW ONE Stop: 03/19/25 10:38 Last Admin: 03/19/25 10:47 Dose: 25 mg Documented By: MERRY Vital Signs Vital signs: Vital Signs - 8 hr 03/19/25 09:10 03/19/25 09:12 03/19/25 09:17 Temperature 98.0 F Pulse Rate 90 98 H Respiratory Rate 16 Blood Pressure 213/102 H 200/90 H Pulse Oximetry 97 97 Oxygen Delivery Method Room Air 03/19/25 09:17 03/19/25 09:30 03/19/25 10:00 Temperature Pulse Rate 84 80 80 Respiratory Rate 24 18 Blood Pressure Pulse Oximetry 97 95 96 Oxygen Delivery Method Room Air 03/19/25 10:03 03/19/25 10:03 03/19/25 10:30 Temperature Pulse Rate 81 94 H Respiratory Rate 29 H Blood Pressure 182/76 H Pulse Oximetry 96 97 Oxygen Delivery Method 03/19/25 10:32 03/19/25 10:32 03/19/25 11:00 Temperature Pulse Rate 89 82 Respiratory Rate 26 H 29 H Blood Pressure 175/77 H Pulse Oximetry 97 96 Oxygen Delivery Method 03/19/25 11:00 03/19/25 11:30 03/19/25 12:00 Temperature Pulse Rate 61 61 Respiratory Rate 16 30 H Blood Pressure 184/84 H 160/70 H 176/79 H Pulse Oximetry 96 96 Oxygen Delivery Method 03/19/25 12:30 03/19/25 13:00 03/19/25 13:00 Temperature Pulse Rate 59 L 64 Respiratory Rate 20 22 Blood Pressure 165/73 H 189/82 H Pulse Oximetry 98 97 Oxygen Delivery Method Room Air 03/19/25 13:30 03/19/25 13:30 03/19/25 14:00 Temperature Pulse Rate 62 62 Respiratory Rate 24 22 Blood Pressure 175/74 H Pulse Oximetry 97 97 Oxygen Delivery Method 03/19/25 14:00 Temperature Pulse Rate Respiratory Rate Blood Pressure 184/79 H Pulse Oximetry Oxygen Delivery Method Medical Decision Making Lab Data 03/19/25 08:55 03/19/25 08:55 Labs: Lab Results 03/19/25 03/19/25 03/19/25 Range/Units 08:55 10:30 12:20 WBC 7.7 (4.5-11.0) X10^3/uL RBC 4.63 (4.0-5.2) X10^6/uL Hgb 13.3 (12.0-16.0) g/dL Hct 40.4 (36-46) % MCV 87.4 (80-100) fL MCH 28.7 (26-34) PG MCHC 32.9 (30-36) % RDW 16.4 H (11.6-14.8) % Plt Count 373 (150-400) X10^3/uL Neut % (Auto) 63.3 (50-75) % Lymph % (Auto) 21.3 L (25-40) % [place] % (Auto) 6.5 (3-14) % Eos % (Auto) 7.8 H (2-4) % Baso % (Auto) 1.1 (0-2) % Neut # (Auto) 4900 (4530-1312) /uL Lymph # (Auto) 1600 (9322-3135) /uL [place] # (Auto) 500 (0-900) /uL Eos # (Auto) 600 H (0-450) /uL Baso # (Auto) 100 (0-100) /uL Sodium 138 (137-145) mmol/L Potassium 3.7 (3.4-5.1) mmol/L Chloride 102 (98-107) mmol/L Carbon Dioxide 23 (22-32) mmol/L BUN 16 (7-17) mg/dL Creatinine 1.06 H (0.52-1.04) mg/dL Estimated GFR 53 L (>60) mL/min BUN/Creatinine Ratio 15.1 (6-22) Glucose 147 H (70-99) mg/dL Lactate 1.7 (0.7-2.1) mmol/L Calcium 10.2 (8.4-10.2) mg/dL Magnesium 1.6 (1.6-2.3) mg/dL Total Bilirubin 0.8 (0.2-1.3) mg/dL AST 24 (14-36) IU/L ALT 13 (<35) IU/L Alkaline Phosphatase 111 (38-126) U/L Troponin I < 0.012 0.014 (0.01-0.034) ng/mL NT-Pro-B Natriuret Pep 753 H (<450) pg/mL Total Protein 8.9 H (6.3-8.2) g/dL Albumin 4.7 (3.5-5.0) g/dL Globulin 4.2 H (1.7-4.1) g/dL Albumin/Globulin Ratio 1.1 (1.0-2.8) Lipase 237 (23-300) U/L Urine Color Yellow Urine Appearance Sl cloudy Urine pH 5.5 (4.5-8.0) Ur Specific [place] <=1.005 (1.000-1.035) Urine Protein Negative (Negative) Urine Glucose (UA) Negative (Negative) g/dL Urine Ketones Negative (NEGATIVE) Urine Occult Blood Negative (Negative) Urine Nitrate Negative (Negative) Urine Bilirubin Negative (NEGATIVE) Urine Urobilinogen 0.2 (0.2) E.U./dL Ur Leukocyte Esterase 1+ H (NEGATIVE) Urine RBC None seen (0-5/HPF) Urine WBC 1-5/hpf (0-5/HPF) Ur Squamous Epith Cells 1-5 /hpf (0-5/HPF) Urine Bacteria Few (2-10) H (None) Ur Culture Indicated? Specimen cultured Vol Urine Centrifuged 10ml (spun) MDM Narrative Medical decision making narrative: CC: Awoke this morning not feeling well, increasing dizziness, possible fever and chills Complicating co-morbidities: Severe osteoporosis with multiple vertebral fractures and chronic pain, hypertension, diabetes from hyperlipidemia Data collected from: patient, medics Medical records reviewed: ER records are available in reviewed, primary care notes are not available Differential considered: Acute coronary syndrome, sepsis, viral etiology, electrolyte abnormality or acute kidney failure, worsening chronic pain, hypertensive crisis Exam documented above, pertinent findings include: Frail, appears generally unwell slightly pale around the lips, exam is notable for her pain and kyphoscoliosis. No obvious infiltrates on pulmonary exam, her belly exam reveals her chronic pain but no obvious other new finding, she does not have an acute surgical abdomen Lab Test results independently reviewed as above. Pertinent findings: CBC is unremarkable Chemistries are reassuring, normal electrolytes Minimally elevated BNP Troponin is undetectable, repeat troponin is undetectable Urine has 1+ leukocyte esterase few bacteria we will be cultured, would wait for culture to returned positive prior to treating this as a UTI Independently reviewed EKG: Sinus rhythm, nonspecific STT wave changes Imaging studies independently reviewed: Chest x-ray is unremarkable Treatments: Metoprolol 50 mg orally IV Toradol 15 mg Discussion: Patient is re-evaluated. After the Toradol her pain is significantly improved. The metoprolol was her usual morning dose and her blood pressures have come down nicely with treatment for both. Workup has been unremarkable. She states she again is having significant back pain related to her chronic compression fractures. Unfortunately she is intolerant to most pain medications. She finds that she can take ibuprofen and it does seem to help a bit. She is wondering if she could go back to aspirin which, if it helps, seems entirely reasonable. I believe that the initial elevated blood pressure was due to pain and simply not taking her morning medications. Her workup has been entirely unremarkable. There was no evidence of acute coronary syndrome, sepsis, significant anemia or alternate explanation for her severe symptoms and hypertension this morning. At this time she is safe for discharge home Additional Information: HEART score = 6 Discharge Plan Departure Patient Disposition: Home Clinical Impression: Pain of lumbar spine, Osteoporosis, Chronic vertebral fracture due to osteoporosis, Hypertension Activity Restrictions/Additional Instructions: Thank you for coming in today I am so sorry that you are suffering so much with this pain from your vertebral fractures and osteoporosis. When he woke up this morning with increasing pain I suspect that the elevated blood pressure was due to that and not yet having had the opportunity to check your morning medications. Workup in the emergency department was quite reassuring. There was no evidence of heart attack or heart attack like syndrome, sepsis, other bacterial or viral infections. With better pain control you look remarkably improved Using 400 mg of ibuprofen (2 [id number]-[id number]-[id number] pills) and 1 Tylenol every 6 hours can be very helpful in controlling pain. It is okay to try taking 2 regular strength aspirin and it is okay to try taking those aspirin with Tylenol to see if it makes any difference. Please do follow up with both your primary care physician as well as your orthopedist to see if they have other thoughts or suggestions to help with this vertebral osteoporosis pain If you find that you are getting worse or develop any new symptoms, please feel free to return to the emergency department for further evaluation. Prescriptions: No Action lidocaine [Lidoderm] 5 % adhesive patch,medicated 1 patch topical DAILY PRN (Reason: pain) Qty: 15 0RF Rx Instructions: leave on most painful area for up to 12 hrs aspirin [Aspir-81] 81 mg tablet,delayed release (DR/EC) 81 mg PO DAILY metformin 500 mg Tablet 500 mg PO TID Patient Comments: patient states takes twice a day. 05/09/19 Rx Instructions: with meals calcitonin (salmon) 200 unit/actuation [place],Non-Aerosol 1 spray INTRANASAL (ALT) DAILY ibuprofen 200 mg Tablet 400 mg PO BID PRN (Reason: Pain, Mild) lisinopril 2.5 mg Tablet 2.5 mg PO DAILY metoprolol tartrate 25 mg Tablet 25 mg PO TID PRN (Reason: palpitations) Calcium 500 + D 1 tab PO DAILY levothyroxine 50 mcg tablet 50 mcg PO DAILY Referrals: Arun Tavares MD [Primary Care Provider, Family Practice] Stand Alone Forms: Patient Portal/API
[2025-03-19 09:31] LABS: Add Manual Diff / Slide Review NO; Hematocrit 40.4 % (36-46); Hemoglobin 13.3 g/dL (12.0-16.0); Lymphocytes Absolute Auto 1600 /uL (1100-4500); Mean Corpuscular HGB Conc 32.9 % (30-36); Mean Corpuscular Hemoglobin 28.7 PG (26-34); Mean Corpuscular Volume 87.4 fL (80-100); Platelet Count 373 X10^3/uL (150-400)
[2025-03-19 09:36] LABS: Lactate (Lactic Acid) 1.7 mmol/L (0.7-2.1)
[2025-03-19 09:37] LABS: Alanine Aminotransferase 13 IU/L (<35); Albumin 4.7 g/dL (3.5-5.0); Albumin Globulin Ratio 1.1 (1.0-2.8); Alkaline Phosphatase 111 U/L (38-126); Blood Urea Nitrogen 16 mg/dL (7-17); Calcium 10.2 mg/dL (8.4-10.2); Carbon Dioxide 23 mmol/L (22-32); Chloride 102 mmol/L (98-107); Estimated Glomerular Filt Rate 53 mL/min (>60); Globulin 4.2 g/dL (1.7-4.1); Glucose 147 mg/dL (70-99); HEMOLYSIS < 15 (0-50); Lipase 237 U/L (23-300); Magnesium 1.6 mg/dL (1.6-2.3); Potassium 3.7 mmol/L (3.4-5.1); Sodium 138 mmol/L (137-145); Total Protein 8.9 g/dL (6.3-8.2)
[2025-03-19 09:49] LABS: NT-proBNP (BNP-Adult 18+) 753 pg/mL (<450); Troponin I < 0.012 ng/mL (0.01-0.034)
[2025-03-19] MEDS: METOPROLOL IR 25 MG TABLET 50 MG PO (10:47)
[2025-03-19 11:11] LABS: Appearance Urine UA SL CLOUDY; Bilirubin Urine UA NEGATIVE (NEGATIVE); Color Urine UA YELLOW; Glucose Urine UA NEGATIVE (Negative); Ketones Urine UA NEGATIVE (NEGATIVE); Leukocyte Esterase Urine UA 1+ (NEGATIVE); Nitrite Urine UA NEGATIVE (Negative); Occult Blood Urine UA NEGATIVE (Negative); Protein Urine UA NEGATIVE (Negative); Specific Gravity Urine UA <=1.005 (1.000-1.035); Urobilinogen Urine UA 0.2 E.U./dL (0.2); pH Urine UA 5.5 (4.5-8.0)
[2025-03-19 11:19] LABS: Culture Indicated Urine Specimen Cultured
[2025-03-19] MEDS: KETOROLAC 30 MG/ML VIAL 15 MG IV (12:33)
[2025-03-19 13:00] LABS: Troponin I 0.014 ng/mL (0.01-0.034)
== END 2025-03-19 14:58 | disposition home or self-care (01) ==
PROVIDERS: Emergency Provider Emergency Medicine; Family Provider Family Medicine; PCP Family Medicine
DX: M80.08XA Age-related osteoporosis with current pathological fracture, vertebra(e), initial encounter for fracture (principal); I10 Essential (primary) hypertension; R53.1 Weakness
CPT/HCPCS: 36415; 71045; 80053; 81001; 83605; 83690; 83735; 83880; 84484; 85025; 87040; 87077; 87086; 93005; 96374; 99284; J1885

== ENCOUNTER 2025-05-09 01:42 | Emergency (ER) | payer MEDICARE, OTHER, SELFPAY ==
[2025-05-09 01:54] VITALS: BP 197/81; PULSE 80; RESP 18; TEMP 36.6; O2SAT 98; BMI 24.2
[2025-05-09 02:06] VITALS: PULSE 74; O2SAT 97
--- NOTE | 2025-05-09 02:07 | ED.GENADULT ---
HPI - General Adult General Chief complaint: Hypertension Stated complaint: High Blood Pressure, Fatigue Time Seen by Provider: 05/09/25 01:46 Source: patient and family Mode of arrival: Wheelchair History of Present Illness HPI narrative: 79-year-old female with a history of severe osteoporosis and multiple chronic vertebral fractures, diabetes, hypertension comes into the ER for a feeling of tremulous and shakiness. It started this a.m. and dissipated for a little while and then resumed prior to arrival. She denies any chest pain or shortness of breath. She does have a recent UTI was started on Bactrim and since being on the antibiotic has had a little bit of GI irritability. No other symptoms. Related Data Home Medications ?Medication ?Instructions ?Recorded ?Confirmed aspirin 81 mg tablet,delayed 81 mg PO DAILY 03/17/18 03/19/25 release (Aspir-) calcitonin (salmon) 200 1 spray intranasal (ALT) DAILY 02/25/19 03/19/25 unit/actuation nasal spray ibuprofen 200 mg tablet 400 mg PO BID PRN Pain, Mild 02/25/19 03/19/25 metformin 500 mg tablet 500 mg PO TID 02/25/19 03/19/25 Calcium 500 + D 1 tab PO DAILY 05/09/19 03/19/25 lisinopril 2.5 mg tablet 2.5 mg PO DAILY 05/09/19 03/19/25 metoprolol tartrate 25 mg tablet 25 mg PO TID PRN palpitations 05/09/19 03/19/25 levothyroxine 50 mcg tablet 50 mcg PO DAILY 03/19/25 03/19/25 Previous Rx's ?Medication ?Instructions ?Recorded lidocaine 5 % topical patch 1 patch topical DAILY PRN pain #15 11/16/21 (Lidoderm) ea Allergies Allergy/AdvReac Type Severity Reaction Status Date / Time sodium chloride for AdvReac Severe Dizziness Verified 03/19/25 09:17 inhalation (From Saline) narcotics AdvReac Intermediate Vomiting Uncoded 03/19/25 09:17 Review of Systems Review of Systems ROS Unobtainable: All systems reviewed & are unremarkable except as noted in HPI and below Patient History Medical History (Updated 05/09/25 @ 03:23 by Salvatore Meléndez MD) History of compression fracture of spine Osteopenia GERD (gastroesophageal reflux disease) History of ectopic Postmenopausal Menieres disease Diabetes Hypothyroidism (acquired) Complete uterovaginal prolapse Surgical History History of kyphoplasty History of appendectomy History of carpal tunnel repair History of surgery Social History household members: spouse Smoking Status: Never smoker alcohol intake frequency: 0-2 drinks per day Exam Narrative Exam Narrative: General: Patient appears to be in no acute distress, acting appropriately Head: normocephalic, atraumatic, HEENT: Pupils equal round reactive, eyes tracking well, neck supple, no JVD Heart: regular rate and rhythm, no murmurs, rubs, or gallops heard Lungs: clear to auscultation, no adventitious sounds Abdomen: soft , nontender, nondistended, positive bowel sounds Neurological: no focal neurological signs, moving all extremities well, alert and oriented x3, Psych: good judgment ,good insight, mood is normal. Initial Vital Signs Initial Vital Signs: Vital Signs Temperature 97.9 F 05/09/25 01:54 Pulse Rate 80 05/09/25 01:54 Respiratory Rate 18 05/09/25 01:54 Blood Pressure 197/81 H 05/09/25 01:54 Pulse Oximetry 98 05/09/25 01:54 Oxygen Delivery Method Room Air 05/09/25 01:54 Course Orders Ordered: ED Orders 05/09/25 02:10 XR chest 1V Stat Complete Blood Count AUTO DIFF Stat Comprehensive Metabolic Panel Stat Lipase Stat Magnesium Stat NT-proBNP (BNP-Adult 18+) Stat PTT Partial Thromboplastin [place] Stat Prothrombin Time INR Stat Troponin & CK Cardiac Panel Stat EKG-12 Lead Stat 05/09/25 02:12 UA dip [Urinalysis Screen (Dip Only)] Stat Discontinued Medications Metoprolol Tartrate (Metoprolol Ir 25 Mg Tablet) 25 mg PO NOW ONE Stop: 05/09/25 02:12 Last Admin: 05/09/25 02:20 Dose: 25 mg Reevaluation(s) Reevaluation #1: Upon re-evaluation, patient is asymptomatic now and eager to be discharged. Time: 03:20 Vital Signs Vital signs: Vital Signs - 8 hr 05/09/25 01:54 Temperature 97.9 F Pulse Rate 80 Respiratory Rate 18 Blood Pressure 197/81 H Pulse Oximetry 98 Oxygen Delivery Method Room Air Medical Decision Making Lab Data 05/09/25 02:17 05/09/25 02:17 Labs: Lab Results 05/09/25 Range/Units 02:17 WBC 3.1 L (4.5-11.0) X10^3/uL RBC 4.37 (4.0-5.2) X10^6/uL Hgb 12.8 (12.0-16.0) g/dL Hct 38.6 (36-46) % MCV 88.3 (80-100) fL MCH 29.4 (26-34) PG MCHC 33.2 (30-36) % RDW 17.0 H (11.6-14.8) % Plt Count 292 (150-400) X10^3/uL Neut % (Auto) 43.8 L (50-75) % Lymph % (Auto) 38.1 (25-40) % [place] % (Auto) 13.4 (3-14) % Eos % (Auto) 4.0 (2-4) % Baso % (Auto) 0.7 (0-2) % Neut # (Auto) 1400 L (0463-9493) /uL Lymph # (Auto) 1200 (1462-8559) /uL [place] # (Auto) 400 (0-900) /uL Eos # (Auto) 100 (0-450) /uL Baso # (Auto) 0 (0-100) /uL PT 12.3 (9.4-12.5) SECONDS INR 1.1 (0.9-1.3) APTT 32 (25.1-36.5) SECONDS Sodium 137 (137-145) mmol/L Potassium 4.0 (3.4-5.1) mmol/L Chloride 106 (98-107) mmol/L Carbon Dioxide 18 L (22-32) mmol/L BUN 18 H (7-17) mg/dL Creatinine 1.18 H (0.52-1.04) mg/dL Estimated GFR 47 L (>60) mL/min BUN/Creatinine Ratio 15.3 (6-22) Glucose 125 H (70-99) mg/dL Calcium 9.5 (8.4-10.2) mg/dL Magnesium 1.7 (1.6-2.3) mg/dL Total Bilirubin 0.2 (0.2-1.3) mg/dL AST 24 (14-36) IU/L ALT 12 (<35) IU/L Alkaline Phosphatase 100 (38-126) U/L Total Creatine Kinase 26 L (30-135) U/L Troponin I < 0.012 (0.01-0.034) ng/mL NT-Pro-B Natriuret Pep 481 H (<450) pg/mL Total Protein 8.3 H (6.3-8.2) g/dL Albumin 4.7 (3.5-5.0) g/dL Globulin 3.6 (1.7-4.1) g/dL Albumin/Globulin Ratio 1.3 (1.0-2.8) Lipase 365 H (23-300) U/L ECG Data Interpretation: EKG showed a left axis deviation, sinus rhythm with frequent PVCs, normal ME intervals, no STT wave changes, 79 beats per minute A previous EKG showed a normal sinus rhythm, left axis deviation, nonspecific ST and T-wave abnormalities at 83 beats per minute. MDM Narrative Medical decision making narrative: 79-year-old female who came in with a fluttery feeling in her chest. Patient given additional metoprolol 25 mg p.o. dose and her blood pressure came down quite a bit. Patient no longer feeling this fluttering feeling in her chest and wanting to be discharged. Advised that she can use metoprolol on her own as needed in the future if she ever has this feeling in her blood pressure remains high. Discharge Plan Departure Patient Disposition: Home Clinical Impression: Fluttering sensation of heart Instructions: DI for High Blood Pressure Activity Restrictions/Additional Instructions: In the future, go ahead and take an additional metoprolol 25 mg p.o. dose when you have this fluttery feeling in her blood pressure remains high. For future UTI, other antibiotics that can be potentially used include Macrobid and Keflex depending on your urine culture. Follow up with her PCP as planned or can come back to the ER for any new unrelenting symptoms. Prescriptions: No Action lidocaine [Lidoderm] 5 % adhesive patch,medicated 1 patch topical DAILY PRN (Reason: pain) Qty: 15 0RF Rx Instructions: leave on most painful area for up to 12 hrs aspirin [Aspir-81] 81 mg tablet,delayed release (DR/EC) 81 mg PO DAILY metformin 500 mg Tablet 500 mg PO TID Patient Comments: patient states takes twice a day. 05/09/19 Rx Instructions: with meals calcitonin (salmon) 200 unit/actuation [place],Non-Aerosol 1 spray INTRANASAL (ALT) DAILY ibuprofen 200 mg Tablet 400 mg PO BID PRN (Reason: Pain, Mild) lisinopril 2.5 mg Tablet 2.5 mg PO DAILY metoprolol tartrate 25 mg Tablet 25 mg PO TID PRN (Reason: palpitations) Calcium 500 + D 1 tab PO DAILY levothyroxine 50 mcg tablet 50 mcg PO DAILY Referrals: Arun Tavares MD [Primary Care Provider, Family Practice] Stand Alone Forms: Patient Portal/API
--- NOTE | 2025-05-09 02:10 | EKG_ITS ---
[address] [address] Test Date: 2025-05-09 Pat Name: Soraida Barry Department: [facility] Room: Gender: Female Web Content Executive: NICK TRENT : 1945 Requested By: Order Number: [id number] Reading MD: Robbi Ugalde Measurements Intervals [place] Rate: 79 P: 17 MS: 126 QRS: -34 QRSD: 94 T: 30 QT: 404 QTc: 463 Interpretive Statements Sinus rhythm with frequent premature ventricular complexes Left axis deviation Electronically Signed On 05-10-2025 8:13:43 PDT by Robbi Ugalde
--- NOTE | 2025-05-09 02:10 | DI.RAD.S_ITS ---
PROCEDURE: XR CHEST 1V INDICATIONS: Chest Pain TECHNIQUE: One view of the chest was acquired. COMPARISON: [facility], CR, XR CHEST 1V, 03/19/2025, 9:24. FINDINGS: Surgical changes and devices: There is extensive vertebral plasty throughout thoracic and upper lumbar spine vertebral bodies. Lungs and pleura: There is no focal infiltrate. No significant pleural effusion or pneumothorax. Mediastinum: Mediastinal contours appear normal. Heart size is enlarged. Bones and chest wall: No suspicious bony lesions. Overlying soft tissues appear unremarkable. IMPRESSION: No acute cardiopulmonary pathology. Dictated by: David Toney M.D. on 05/09/2025 at 8:11 Approved by: David Toney M.D. on 05/09/2025 at 8:12
[2025-05-09 02:14] VITALS: BP 158/68; PULSE 76; O2SAT 97
[2025-05-09] MEDS: METOPROLOL IR 25 MG TABLET PO (02:20)
[2025-05-09 02:29] LABS: Add Manual Diff / Slide Review NO; Hematocrit 38.6 % (36-46); Hemoglobin 12.8 g/dL (12.0-16.0); Lymphocytes Absolute Auto 1200 /uL (1100-4500); Mean Corpuscular HGB Conc 33.2 % (30-36); Mean Corpuscular Hemoglobin 29.4 PG (26-34); Mean Corpuscular Volume 88.3 fL (80-100); Platelet Count 292 X10^3/uL (150-400)
[2025-05-09 02:30] VITALS: PULSE 75; O2SAT 96
[2025-05-09 02:32] VITALS: BP 149/66; PULSE 73; O2SAT 96
[2025-05-09 02:34] LABS: INR 1.1 (0.9-1.3); Prothrombin Time 12.3 SECONDS (9.4-12.5)
[2025-05-09 02:37] LABS: PTT Partial Thromboplastin Tim 32 SECONDS (25.1-36.5)
[2025-05-09 02:39] LABS: Alanine Aminotransferase 12 IU/L (<35); Albumin 4.7 g/dL (3.5-5.0); Albumin Globulin Ratio 1.3 (1.0-2.8); Alkaline Phosphatase 100 U/L (38-126); Blood Urea Nitrogen 18 mg/dL (7-17); Calcium 9.5 mg/dL (8.4-10.2); Carbon Dioxide 18 mmol/L (22-32); Chloride 106 mmol/L (98-107); Creatine Kinase 26 U/L (30-135); Estimated Glomerular Filt Rate 47 mL/min (>60); Globulin 3.6 g/dL (1.7-4.1); Glucose 125 mg/dL (70-99); HEMOLYSIS < 15 (0-50); Lipase 365 U/L (23-300); Magnesium 1.7 mg/dL (1.6-2.3); Potassium 4.0 mmol/L (3.4-5.1); Sodium 137 mmol/L (137-145); Total Protein 8.3 g/dL (6.3-8.2)
[2025-05-09 02:50] LABS: NT-proBNP (BNP-Adult 18+) 481 pg/mL (<450); Troponin I < 0.012 ng/mL (0.01-0.034)
[2025-05-09 03:00] VITALS: BP 157/69; PULSE 62; O2SAT 95
== END 2025-05-09 03:28 | disposition home or self-care (01) ==
PROVIDERS: Emergency Provider Family Medicine; Family Provider Family Medicine; PCP Family Medicine
DX: R00.2 Palpitations (principal); I10 Essential (primary) hypertension
CPT/HCPCS: 36415; 71045; 80053; 82550; 83690; 83735; 83880; 84484; 85025; 85610; 85730; 93005; 99283; 99284

== ENCOUNTER 2025-05-14 14:54 | Emergency (ER) | payer MEDICARE, OTHER, SELFPAY ==
[2025-05-14] VITALS (15 sets, daily range): BP systolic 120–154; BP diastolic 57–101; PULSE 71–81; RESP 16–17; TEMP 36.6; O2SAT 93–98; BMI 24.4
[2025-05-14 16:02] LABS: Add Manual Diff / Slide Review NO; Hematocrit 42.1 % (36-46); Hemoglobin 13.9 g/dL (12.0-16.0); Lymphocytes Absolute Auto 1900 /uL (1100-4500); Mean Corpuscular HGB Conc 33.1 % (30-36); Mean Corpuscular Hemoglobin 29.2 PG (26-34); Mean Corpuscular Volume 88.1 fL (80-100); Platelet Count 452 X10^3/uL (150-400)
[2025-05-14 16:17] LABS: Alanine Aminotransferase 13 IU/L (<35); Albumin 4.8 g/dL (3.5-5.0); Albumin Globulin Ratio 1.2 (1.0-2.8); Alkaline Phosphatase 101 U/L (38-126); Blood Urea Nitrogen 21 mg/dL (7-17); Calcium 9.8 mg/dL (8.4-10.2); Carbon Dioxide 20 mmol/L (22-32); Chloride 96 mmol/L (98-107); Estimated Glomerular Filt Rate > 60 mL/min (>60); Globulin 4.1 g/dL (1.7-4.1); Glucose 129 mg/dL (70-99); HEMOLYSIS 31 (0-50); Lipase 400 U/L (23-300); Potassium 4.1 mmol/L (3.4-5.1); Sodium 130 mmol/L (137-145); Total Protein 8.9 g/dL (6.3-8.2)
[2025-05-14 17:39] LABS: Appearance Urine UA SL CLOUDY; Bilirubin Urine UA NEGATIVE (NEGATIVE); Color Urine UA YELLOW; Glucose Urine UA NEGATIVE (Negative); Ketones Urine UA NEGATIVE (NEGATIVE); Leukocyte Esterase Urine UA 1+ (NEGATIVE); Nitrite Urine UA NEGATIVE (Negative); Occult Blood Urine UA NEGATIVE (Negative); Protein Urine UA NEGATIVE (Negative); Specific Gravity Urine UA 1.020 (1.000-1.035); Urobilinogen Urine UA 0.2 E.U./dL (0.2)
[2025-05-14 17:42] LABS: pH Urine UA 5.5 (4.5-8.0)
[2025-05-14 17:46] LABS: Culture Indicated Urine Specimen Cultured
--- NOTE | 2025-05-14 18:04 | ED.GENADULT ---
HPI - General Adult General Chief complaint: Weakness Stated complaint: Returning; [place] Dehydration, Not Eating/Drinking Time Seen by Provider: 05/14/25 16:21 Source: patient and family Mode of arrival: Wheelchair History of Present Illness HPI narrative: 79-year-old female recently seen for urine infection clinic 1-1/2 weeks ago by PCP [place] and treated with Bactrim antibiotic, had nausea abdominal cramping and loose stools and visit here in the emergency department subsequently, no abdominal imaging recalled by patient, oral Bactrim was stopped. PCP Clifton called in a prescription for Vantin cefpodoxime antibiotic, then next day advised cancellation of the antibiotic. Patient has been off antibiotics for a number of days. Still having intermittent loose stools. No fevers or chills. Some ongoing epigastric pain. History of osteoporosis with anterior chest discomfort or ongoing. She has generalized weakness today, concerned that she might be dehydrated. No black or red stools. Some nausea with single episode of emesis yesterday, some slight nausea earlier today, currently not present. Related Data Home Medications ?Medication ?Instructions ?Recorded ?Confirmed aspirin 81 mg tablet,delayed 81 mg PO DAILY 03/17/18 03/19/25 release (Aspir-) calcitonin (salmon) 200 1 spray intranasal (ALT) DAILY 02/25/19 03/19/25 unit/actuation nasal spray ibuprofen 200 mg tablet 400 mg PO BID PRN Pain, Mild 02/25/19 03/19/25 metformin 500 mg tablet 500 mg PO TID 02/25/19 03/19/25 Calcium 500 + D 1 tab PO DAILY 05/09/19 03/19/25 lisinopril 2.5 mg tablet 2.5 mg PO DAILY 05/09/19 03/19/25 metoprolol tartrate 25 mg tablet 25 mg PO TID PRN palpitations 05/09/19 03/19/25 levothyroxine 50 mcg tablet 50 mcg PO DAILY 03/19/25 03/19/25 Previous Rx's ?Medication ?Instructions ?Recorded lidocaine 5 % topical patch 1 patch topical DAILY PRN pain #15 11/16/21 (Lidoderm) ea Allergies Allergy/AdvReac Type Severity Reaction Status Date / Time sodium chloride for AdvReac Severe Dizziness Verified 03/19/25 09:17 inhalation (From Saline) narcotics AdvReac Intermediate Vomiting Uncoded 03/19/25 09:17 Patient History Medical History (Updated 05/14/25 @ 20:51 by Dylan Varghese MD) History of compression fracture of spine Osteopenia GERD (gastroesophageal reflux disease) History of ectopic Postmenopausal [place] disease Diabetes Hypothyroidism (acquired) Complete uterovaginal prolapse Surgical History History of kyphoplasty History of appendectomy History of carpal tunnel repair History of surgery Social History household members: spouse Smoking Status: Never smoker Smoking Status: Never smoker alcohol intake frequency: 0-2 drinks per day Exam Narrative Exam Narrative: GENERAL: Well-developed patient, in mild distress. HEAD: Atraumatic. Normocephalic. EYES: Pupils equal round and reactive. Extraocular motions intact. No scleral icterus. No injection or drainage. ENT: Nose without bleeding, purulent drainage. Throat without erythema, tonsillar hypertrophy or exudate. Airway patent. NECK: Trachea midline. Non tender CARDIOVASCULAR: Regular rate and rhythm without murmurs, gallops, or rubs. RESPIRATORY: Clear to auscultation. Breath sounds equal bilaterally. No wheezes, rales, or rhonchi. GASTROINTESTINAL: Abdomen nondistended, mild epigastric area tenderness, nonrigid, unremarkable bowel tones EXTREMITIES: No edema or joint tenderness. BACK: Nontender without deformity or crepitance. No flank tenderness. NEURO: AOx3. Motor functions grossly nonfocal. SKIN: No rash or erythema of visible areas Initial Vital Signs Initial Vital Signs: Vital Signs Temperature 97.9 F 05/14/25 15:01 Pulse Rate 77 05/14/25 15:01 Respiratory Rate 16 05/14/25 15:01 Blood Pressure 125/58 L 05/14/25 15:01 Pulse Oximetry 98 05/14/25 15:01 Oxygen Delivery Method Room Air 05/14/25 15:01 Course Orders Ordered: Discontinued Medications Famotidine (Famotidine 20 Mg/2 Ml Vial) 20 mg IV NOW JASON Last Admin: 05/14/25 18:27 Dose: 20 mg Documented By: TC Sodium Chloride (Normal Saline 0.9%) 1,000 mls @ 1,000 mls/hr IV BOLUS ONE Stop: 05/14/25 19:18 Last Infusion: 05/14/25 20:20 Dose: Infused Documented By: RLDoug Admin: 05/14/25 18:27 Dose: 1,000 mls/hr Documented By: TC Vital Signs Vital signs: Vital Signs - 8 hr 05/14/25 15:01 05/14/25 15:16 05/14/25 15:16 Temperature 97.9 F Pulse Rate 77 72 Respiratory Rate 16 Blood Pressure 125/58 L 135/60 Pulse Oximetry 98 96 Oxygen Delivery Method Room Air 05/14/25 15:30 05/14/25 16:00 05/14/25 16:00 Temperature Pulse Rate 72 71 Respiratory Rate Blood Pressure 120/57 L Pulse Oximetry 97 96 Oxygen Delivery Method 05/14/25 16:30 05/14/25 16:30 05/14/25 17:04 Temperature Pulse Rate 74 78 Respiratory Rate Blood Pressure 131/61 Pulse Oximetry 97 96 Oxygen Delivery Method 05/14/25 17:06 05/14/25 17:06 05/14/25 17:30 Temperature Pulse Rate 74 71 Respiratory Rate Blood Pressure 142/69 H Pulse Oximetry 97 96 Oxygen Delivery Method 05/14/25 17:30 05/14/25 18:00 05/14/25 18:00 Temperature Pulse Rate 77 Respiratory Rate Blood Pressure 129/61 130/60 Pulse Oximetry 95 Oxygen Delivery Method 05/14/25 18:46 Temperature Pulse Rate 76 Respiratory Rate Blood Pressure Pulse Oximetry 96 Oxygen Delivery Method Medical Decision Making Lab Data Lab results reviewed: Yes I reviewed the patient's lab results. Lab results narrative: White blood cell count 7400, hemoglobin 13.9, platelets adequate. Glucose 129. BUN 29 with creatinine 0.90. Serum CO2 20 slight decreased. Sodium 130 decreased. Potassium 4.1 normal. Liver functions normal. Lipase 400 slight elevation. Urinalysis negative. 05/14/25 15:36 05/14/25 15:36 Labs: Lab Results 05/14/25 05/14/25 05/14/25 Range/Units 15:36 17:10 18:46 WBC 7.4 (4.5-11.0) X10^3/uL RBC 4.78 (4.0-5.2) X10^6/uL Hgb 13.9 (12.0-16.0) g/dL Hct 42.1 (36-46) % MCV 88.1 (80-100) fL MCH 29.2 (26-34) PG MCHC 33.1 (30-36) % RDW 16.5 H (11.6-14.8) % Plt Count 452 H (150-400) X10^3/uL Neut % (Auto) 65.0 (50-75) % Lymph % (Auto) 26.0 (25-40) % [place] % (Auto) 6.4 (3-14) % Eos % (Auto) 1.2 L (2-4) % Baso % (Auto) 1.4 (0-2) % Neut # (Auto) 4800 (2825-6676) /uL Lymph # (Auto) 1900 (2155-1159) /uL [place] # (Auto) 500 (0-900) /uL Eos # (Auto) 100 (0-450) /uL Baso # (Auto) 100 (0-100) /uL Sodium 130 L (137-145) mmol/L Potassium 4.1 (3.4-5.1) mmol/L Chloride 96 L (98-107) mmol/L Carbon Dioxide 20 L (22-32) mmol/L BUN 21 H (7-17) mg/dL Creatinine 0.90 (0.52-1.04) mg/dL Estimated GFR > 60 (>60) mL/min BUN/Creatinine Ratio 23.3 H (6-22) Glucose 129 H (70-99) mg/dL Calcium 9.8 (8.4-10.2) mg/dL Total Bilirubin 0.5 (0.2-1.3) mg/dL AST 30 (14-36) IU/L ALT 13 (<35) IU/L Alkaline Phosphatase 101 (38-126) U/L Troponin I < 0.012 < 0.012 (0.01-0.034) ng/mL Total Protein 8.9 H (6.3-8.2) g/dL Albumin 4.8 (3.5-5.0) g/dL Globulin 4.1 (1.7-4.1) g/dL Albumin/Globulin Ratio 1.2 (1.0-2.8) Lipase 400 H (23-300) U/L Urine Color Yellow Urine Appearance Sl cloudy Urine pH 5.5 (4.5-8.0) Ur Specific [place] 1.020 (1.000-1.035) Urine Protein Negative (Negative) Urine Glucose (UA) Negative (Negative) g/dL Urine Ketones Negative (NEGATIVE) Urine Occult Blood Negative (Negative) Urine Nitrate Negative (Negative) Urine Bilirubin Negative (NEGATIVE) Urine Urobilinogen 0.2 (0.2) E.U./dL Ur Leukocyte Esterase 1+ H (NEGATIVE) Urine RBC None seen (0-5/HPF) Urine WBC 1-5/hpf (0-5/HPF) Ur Squamous Epith Cells 1-5 /hpf (0-5/HPF) Ur Transition Epith Cell 1-5/hpf (0-5/HPF) Urine Bacteria None seen (None) Ur Culture Indicated? Specimen cultured Vol Urine Centrifuged 10ml (spun) Urine Dip Bedside Urine Glucose Negative Bedside Urine Bilirubin - Negative Bedside Urine Ketone - Negative Urine Specific [place] 1.020 Bedside Urine Occult Blood - Negative Bedside Urine pH 6.0 Bedside Urine Protein - Negative Bedside Urine Urobilinogen - Negative Bedside Urine Nitrite - Negative Bedside Urine Leukocytes + 70 Esterase Point of care testing: Urine Dip Bedside Urine Glucose Negative Bedside Urine Bilirubin - Negative Bedside Urine Ketone - Negative Urine Specific [place] 1.020 Bedside Urine Occult Blood - Negative Bedside Urine pH 6.0 Bedside Urine Protein - Negative Bedside Urine Urobilinogen - Negative Bedside Urine Nitrite - Negative Bedside Urine Leukocytes + [address] scan - abdomen/pelvis: Radiologist's Impression: [address] [address] [address] Scan Report Signed Patient: Soraida Barry MR#: [id number] : 1945 Acct:[id number] Age/Sex: 79 / F Date of Service: 05/14/25 Loc: ED Accession Number: [id number] Procedure: CT abdomen pelvis w con Ordering Provider: Dylan Varghese MD PROCEDURE: CT ABDOMEN PELVIS W CON INDICATIONS: epig pain, inc Lipase light TECHNIQUE: After the administration of intravenous contrast, axial sections acquired from the lung bases to the pubic symphysis. Coronal and sagittal reformats were performed. For radiation dose reduction, the following was used: automated exposure control, adjustment of mA and/or kV according to patient size. COMPARISON: [facility], CT, CT CHEST WO CON, 12/30/2024, 13:21. FINDINGS: Image quality: Diagnostic. Lower Chest: No significant findings. ABDOMEN: Liver: Several hypodensities of the liver. Within segment 6 of the liver there is a partially calcified hypodensity with cystic attenuation measuring 1.7 cm unchanged from comparison 12/30/2024. Gallbladder: No radiopaque gallstones or wall thickening. Biliary ducts: No biliary dilation. Pancreas: No ductal dilation. Mild inflammatory changes near the head of the pancreas without abscess or abnormal enhancement. Spleen: Size is within normal limits. Adrenal Glands: No adrenal nodules. Kidneys and Ureters: Large calcification within the inferior horn of the left kidney measuring 1.1 cm in size with a density of 640 Hounsfield units. No significant hydronephrosis. Left distal ureteral calcifications. Calcifications layering along the posterior wall of bladder may reflect mural calcifications versus ureteral stones. Stomach and Bowel: Normal colonic caliber, without significant wall thickening. Scattered diverticula that evidence of acute diverticulitis. Peritoneum: No abnormal intraperitoneal fluid. No free air. Ventral Wall: No significant ventral hernia. Abdominal Nodes: No retroperitoneal or mesenteric adenopathy by size criteria. Vessels: Aorta and inferior vena cava are normal in size. PELVIS: Pelvic Organs: Unremarkable. Bladder: No bladder wall thickening, accounting for underdistention. Pelvic Nodes: No enlarged lymph nodes. Miscellaneous: No inguinal hernias are seen. Bones: No aggressive osseous abnormality. Multilevel wedge deformities with kyphoplasty material seen in T12-L1 and T11. IMPRESSION: 1. Inflammatory changes near the head of the pancreas without peripancreatic fluid collection or enhancement abnormality of the pancreas. 2. Left nephrolithiasis. 3. Extensive distal left ureteral calcifications suggestive of ureteral stones without hydronephrosis. 4. Extensive calcifications along the gravity appended portion of the bladder which may represent mural calcifications versus ureteral stones. Dictated by: Gabriele Woods M.D. on 05/14/2025 at 17:58 Approved by: Gabriele Woods M.D. on 05/14/2025 at 18:10 ECG Data Attestation: I personally reviewed and interpreted this ECG as follows: Interpretation: 1851, Normal sinus rhythm with rate of 73, no obvious ST segment elevation or depression changes. SD 146, QRS 92, QTC 449. MDM Narrative Medical decision making narrative: 79-year-old female with generalized weakness and abdominal discomfort epigastrium, recent course of Bactrim antibiotic discontinued, Vantin antibiotic taken for a day and then discontinued. Epigastric pain persisting. No known history of stomach ulcers. Takes occasional ibuprofen. DDx consider gastritis, PUD, pancreatitis, biliary colic, choledocholithiasis, colitis, diverticulitis, other. IV fluid bolus, IV Pepcid. Denies current nausea. Labs pending. Consider imaging given persistence of symptoms. Lab data: White blood cell count 7400, hemoglobin 13.9, platelets adequate. Glucose 129. BUN 29 with creatinine 0.90. Serum CO2 20 slight decreased. Sodium 130 decreased. Potassium 4.1 normal. Liver functions normal. Lipase 400 slight elevation. Urinalysis negative. Renal function adequate, CT abdomen and pelvis ordered. CT abdomen and pelvis shows some inflammatory change pancreatic head, no heber pancreatic fluid collections noted. No ductal dilatation changes. See radiology report. Patient feels better after IV fluids, declines pain medications. She would like to go home. Discussed admission, offered admission, patient prefers to have home trial unclear liquid diet with follow up with PCP. CT report results shared with patient and family. IV fluids given. She declines pain medications. She would like to try clear fluids at home, declined admission when offered. Discharged home with family per patient preference. Advised to follow up with PCP in the next couple of days to reassess symptoms. Return precautions discussed. Discharge Plan Departure Patient Disposition: Home Clinical Impression: Pancreatitis Activity Restrictions/Additional Instructions: Epigastric discomfort, recent course of Bactrim antibiotic discontinued, Vantin antibiotic also discontinued, no evidence of urinary tract infection today. Epigastric area abdominal discomfort. CT abdomen and pelvis showed mild inflammation of the pancreatic head that accounts for that area of your symptoms, consistent with mild pancreatitis. We discussed admission for IV fluids and bowel rest and pain medications as needed. You preferred to have treatment and management as an outpatient for now. Have clear fluids for the next day or so, Yell tests with your regular doctor in the next couple of days. Return to this/nearest emergency department for any change worsening symptoms or any concerns prior. Please list sulfa as an allergy, as it might have been the culprit causing the pancreatitis in this particular case. Prescriptions: No Action lidocaine [Lidoderm] 5 % adhesive patch,medicated 1 patch topical DAILY PRN (Reason: pain) Qty: 15 0RF Rx Instructions: leave on most painful area for up to 12 hrs aspirin [Aspir-81] 81 mg tablet,delayed release (DR/EC) 81 mg PO DAILY metformin 500 mg Tablet 500 mg PO TID Patient Comments: patient states takes twice a day. 05/09/19 Rx Instructions: with meals calcitonin (salmon) 200 unit/actuation Fine,Non-Aerosol 1 spray INTRANASAL (ALT) DAILY ibuprofen 200 mg Tablet 400 mg PO BID PRN (Reason: Pain, Mild) lisinopril 2.5 mg Tablet 2.5 mg PO DAILY metoprolol tartrate 25 mg Tablet 25 mg PO TID PRN (Reason: palpitations) Calcium 500 + D 1 tab PO DAILY levothyroxine 50 mcg tablet 50 mcg PO DAILY Referrals: Arun Tavares MD [Primary Care Provider, Family Practice] Stand Alone Forms: Patient Portal/API
--- NOTE | 2025-05-14 18:20 | DI.CT.S_ITS ---
PROCEDURE: CT ABDOMEN PELVIS W CON INDICATIONS: epig pain, inc Lipase light TECHNIQUE: After the administration of intravenous contrast, axial sections acquired from the lung bases to the pubic symphysis. Coronal and sagittal reformats were performed. For radiation dose reduction, the following was used: automated exposure control, adjustment of mA and/or kV according to patient size. COMPARISON: [facility], CT, CT CHEST WO CON, 12/30/2024, 13:21. FINDINGS: Image quality: Diagnostic. Lower Chest: No significant findings. ABDOMEN: Liver: Several hypodensities of the liver. Within segment 6 of the liver there is a partially calcified hypodensity with cystic attenuation measuring 1.7 cm unchanged from comparison 12/30/2024. Gallbladder: No radiopaque gallstones or wall thickening. Biliary ducts: No biliary dilation. Pancreas: No ductal dilation. Mild inflammatory changes near the head of the pancreas without abscess or abnormal enhancement. Spleen: Size is within normal limits. Adrenal Glands: No adrenal nodules. Kidneys and Ureters: Large calcification within the inferior horn of the left kidney measuring 1.1 cm in size with a density of 640 Hounsfield units. No significant hydronephrosis. Left distal ureteral calcifications. Calcifications layering along the posterior wall of bladder may reflect mural calcifications versus ureteral stones. Stomach and Bowel: Normal colonic caliber, without significant wall thickening. Scattered diverticula that evidence of acute diverticulitis. Peritoneum: No abnormal intraperitoneal fluid. No free air. Ventral Wall: No significant ventral hernia. Abdominal Nodes: No retroperitoneal or mesenteric adenopathy by size criteria. Vessels: Aorta and inferior vena cava are normal in size. PELVIS: Pelvic Organs: Unremarkable. Bladder: No bladder wall thickening, accounting for underdistention. Pelvic Nodes: No enlarged lymph nodes. Miscellaneous: No inguinal hernias are seen. Bones: No aggressive osseous abnormality. Multilevel wedge deformities with kyphoplasty material seen in T12-L1 and T11. IMPRESSION: 1. Inflammatory changes near the head of the pancreas without peripancreatic fluid collection or enhancement abnormality of the pancreas. 2. Left nephrolithiasis. 3. Extensive distal left ureteral calcifications suggestive of ureteral stones without hydronephrosis. 4. Extensive calcifications along the gravity appended portion of the bladder which may represent mural calcifications versus ureteral stones. Dictated by: Gabriele Woods M.D. on 05/14/2025 at 17:58 Approved by: Gabriele Woods M.D. on 05/14/2025 at 18:10
[2025-05-14] MEDS: FAMOTIDINE 20 MG/2 ML VIAL IV (18:27)
[2025-05-14] MEDS: SODIUM CHLORIDE 0.9% 1,000 ML 1000 ML IV (18:27)
--- NOTE | 2025-05-14 18:51 | EKG_ITS ---
[place] [id number] [place] [id number] Test Date: 2025-05-14 Pat Name: Soraida Barry Department: [facility] Room: Gender: Female Blocker Hand: : 1945 Requested By: Order Number: [id number] Reading MD: Robbi Ugalde Measurements Intervals [place] Rate: 73 P: 20 [place]: 146 QRS: -39 QRSD: 92 T: 61 QT: 408 QTc: 449 Interpretive Statements Normal sinus rhythm Left axis deviation Anterior infarct , age undetermined Electronically Signed On 05-17-2025 8:28:14 PDT by Robbi Ugalde
[2025-05-14 18:59] LABS: Troponin I < 0.012 ng/mL (0.01-0.034)
[2025-05-14 19:15] LABS: Troponin I < 0.012 ng/mL (0.01-0.034)
--- NOTE | 2025-05-14 20:18 | PC.NURSE ---
Pt able to ambulate w/SBA to bed side commode. Reports feeling a lot better and being ready to go home. Pt denies pain or SOB. notified.
== END 2025-05-14 21:18 | disposition home or self-care (01) ==
PROVIDERS: Student in an Organized Health Care Education/Training Program; Emergency Provider Emergency Medicine; Family Provider Family Medicine; PCP Family Medicine
DX: K85.90 Acute pancreatitis without necrosis or infection, unspecified (principal)
CPT/HCPCS: 36415; 74177; 80053; 81001; 81003; 83690; 84484; 85025; 87086; 93005; 96361; 96374; 99284; J7030; Q9967